=== PATIENT | male | born 1960 | race Caucasian/White ===

== ENCOUNTER 2017-05-26 12:59 | Emergency (ER) | payer BC, OTHER ==
[~2017-05-26] VITALS: Ht 182.9 cm; Wt 117.9 kg
[~2017-05-26 12:59] MED LIST: CYCL10TA6 PO; GLC/500 PO; GLIM4TAB2 PO; IBUP-1451 PO
[2017-05-26 13:10] VITALS: Ht 182.9 cm; Wt 117.9 kg
[2017-05-26] MEDS ORDERED: KETOROLAC TROMETHAMINE 30 MG/ML VIAL IV STA (13:32)
[2017-05-26] MEDS ORDERED: ONDANSETRON INJ 2 MG/ML 2 ML VIAL IV STA (13:32)
[2017-05-26] MEDS ORDERED: ACETAMINOPHEN 500 MG TAB PO STA (13:32)
--- NOTE | 2017-05-26 13:37 | EMERGENCY ROOM VISIT NOTE ---
History First contact with patient: 13:14 Chief Complaint: FLU LIKE SX Stated Complaint: FLU History of Present Illness The patient is a 56 year old male who presents to the Emergency Room with complaints of flulike symptoms that started early Satur morning. The patient has experienced a dry cough, body aches, nausea, dry heaves and diarrhea. His has similar symptoms. He did not take his temperature. The patient was traveling back from [facility]. The onset of symptoms was fairly sudden. He is also feeling slightly short of breath. The patient denies any history of pulmonary disease. He does have a history of diabetes. He did get a flu shot this year. Review of Systems 10 system review performed and negative unless noted in HPI or below Past Medical/Surgical History Diabetes Social History Smoking Status: Never Smoker Alcohol Use: occasionally Drug Use: none Marital Status: Housing Status: lives with family Occupation Status: employed Current/Historical Medications Scheduled Glimepiride (Glimepiride), 2 MG PO DAILY Metformin Hcl (Glucophage), 1,000 MG PO BID Ondasetron Odt (Zofran Odt), 4 MG SL Q6H Oseltamivir (Tamiflu), 75 MG PO BID Physical Exam Vital Signs Date Time Temp Pulse Resp B/P (MAP) Pulse Ox O2 Delivery O2 Flow Rate FiO2 05/26/17 15:04 37.1 93 18 147/79 95 Room Air 05/26/17 14:42 97 17 160/89 98 Room Air 05/26/17 13:10 37.0 104 18 158/89 98 Room Air Physical Exam VITALS: Vitals are noted on the nurse's note and reviewed by myself. Vital signs stable. GENERAL: 56-year-old male, moderately acutely ill in appearance, SKIN: The skin was without rashes, erythema, edema, or bruising. HEAD: Normocephalic atraumatic. MOUTH: Mucous membranes slightly dry Tonsils are not enlarged. Pharynx without erythema or exudate. Uvula midline. Airway patent. Tongue does not deviate. NECK: Supple without nuchal rigidity. No lymphadenopathy. Cervical spine is nontender. No JVD. HEART: Tachycardic, regular rhythm without murmurs gallops or rubs. LUNGS: Clear to auscultation bilaterally without wheezes, rales or rhonchi. No accessory muscle use. ABDOMEN: Positive bowel sounds x 4.Soft, nontender, without organomegaly. No guarding or rebound tenderness. MUSCULOSKELETAL: No muscle atrophy, erythema, or edema noted. Strength 5/5 throughout. NEURO: Patient was alert and oriented to person place and time. Normal sensation to touch. No focal neurological deficits. Medical Decision & Procedures ER Provider Diagnostic Interpretation: Chest x-ray IMPRESSION: No acute cardiopulmonary findings. Electronically signed by: Hiren Queen M.D. 05/26/2017 2:42 PM Laboratory Results 05/26/17 13:50 Red Blood Count 5.00, Mean Corpuscular Volume 89.2, Mean Corpuscular Hemoglobin 30.6, Mean Corpuscular Hemoglobin Concent 34.3, Mean Platelet Volume 9.1, Neutrophils (%) (Auto) 78.6, Lymphocytes (%) (Auto) 6.8, Monocytes (%) (Auto) 12.6, Eosinophils (%) (Auto) 1.5, Basophils (%) (Auto) 0.3, Neutrophils # (Auto ) 4.62, Lymphocytes # (Auto) 0.40, Monocytes # (Auto) 0.74, Eosinophils # (Auto ) 0.09, Basophils # (Auto) 0.02 05/26/17 13:50 Test 05/26/17 13:17 05/26/17 13:50 Influenza Type A Antigen Neg for Influ A (NEG) Influenza Type B Antigen POS for Influ B (NEG) White Blood Count 5.88 K/uL (4.8-10.8) Red Blood Count 5.00 M/uL (4.7-6.1) Hemoglobin 15.3 g/dL (14.0-18.0) Hematocrit 44.6 % (42-52) Mean Corpuscular Volume 89.2 fL (80-100) Mean Corpuscular Hemoglobin 30.6 pg (25-34) Mean Corpuscular Hemoglobin Concent 34.3 g/dl (32-36) Platelet Count 163 K/uL (130-400) Mean Platelet Volume 9.1 fL (7.4-10.4) Neutrophils (%) (Auto) 78.6 % Lymphocytes (%) (Auto) 6.8 % Monocytes (%) (Auto) 12.6 % Eosinophils (%) (Auto) 1.5 % Basophils (%) (Auto) 0.3 % Neutrophils # (Auto) 4.62 K/uL (1.4-6.5) Lymphocytes # (Auto) 0.40 K/uL (1.2-3.4) Monocytes # (Auto) 0.74 K/uL (0.11-0.59) Eosinophils # (Auto) 0.09 K/uL (0-0.5) Basophils # (Auto) 0.02 K/uL (0-0.2) RDW Standard Deviation 44.9 fL (36.4-46.3) RDW Coefficient of Variation 13.7 % (11.5-14.5) Immature Granulocyte % (Auto) 0.2 % Immature Granulocyte # (Auto) 0.01 K/uL (0.00-0.02) Anion Gap 9.0 mmol/L (3-11) Est Creatinine Clear Calc Drug Dose 91.8 ml/min Estimated GFR () 77.4 Estimated GFR (Non- 66.8 BUN/Creatinine Ratio 16.2 (10-20) Calcium Level 8.5 mg/dl (8.5-10.1) Total Bilirubin 0.4 mg/dl (0.2-1) Aspartate Amino Transf (AST/SGOT) 20 U/L (15-37) Alanine Aminotransferase (ALT/SGPT) 27 U/L (12-78) Alkaline Phosphatase 75 U/L (45-117) Total Protein 7.5 gm/dl (6.4-8.2) Albumin 3.9 gm/dl (3.4-5.0) Globulin 3.6 gm/dl (2.5-4.0) Albumin/Globulin Ratio 1.1 (0.9-2) Medications Administered Medications (Trade) Dose Ordered Sig/Perlita Route Start Time Stop Time Status Last Admin Dose Admin Sodium Chloride 1,000 ml @ 999 mls/hr Q1H1M ONCE IV 05/26/17 13:45 05/26/17 14:45 DC 05/26/17 14:06 999 MLS/HR Ondansetron HCl (Zofran Inj) 4 mg NOW STAT IV 05/26/17 13:32 05/26/17 13:35 DC 05/26/17 14:06 4 MG Acetaminophen (Tylenol Tab) 1,000 mg NOW STAT PO 05/26/17 13:32 05/26/17 13:35 DC 05/26/17 14:07 1,000 MG Ketorolac Tromethamine (Toradol Inj) 30 mg NOW STAT IV 05/26/17 13:32 05/26/17 13:35 DC 05/26/17 14:08 30 MG Oseltamivir Phosphate (Tamiflu Cap) 75 mg NOW STAT PO 05/26/17 15:24 05/26/17 15:26 DC 05/26/17 15:50 75 MG ED Course Patient was seen and examined Vital signs including blood pressure were reviewed medications list was verified with patient Labs were obtained, and a saline lock was established The patient was medicated with Toradol, Zofran and Tylenol. He was hydrated with 1 L of normal saline. Upon reevaluation, the patient was feeling better. We discussed his workup. He voiced understanding. He was given 1 dose of Tamiflu. I reviewed discharge instructions the patient. They voiced understanding and had no further questions. Medical Decision Differential diagnosis: Bronchitis, pneumonia, viral GI illness, influenza , other respiratory viral illness This patient is a 56-year-old male that presents to the emergency department with flulike symptoms. The patient has a positive for influenza B. On exam, he is slightly dehydrated. There is no leukocytosis. Chest x-ray is negative for pneumonia. He had good symptomatic relief in the emergency department. Vital signs are stable. I believe he is stable to be discharged home. He was provided a prescription for Tamiflu. He will follow-up with his primary care physician, and agrees to return with any worsening symptoms. This chart was completed in part utilizing [employer] Speech Voice Recognition software. Attempts were made to minimize the grammatical errors, random word insertions, pronoun errors and incomplete sentences. Any formal questions or concerns about the content, text or information contained within the body of this dictation should be directly addressed to the provider for clarification. Medication Reconcilliation Current Medication List: was personally reviewed by me Blood Pressure Screening Patient's blood pressure: Elevated blood pressure Blood pressure disposition: Elevated BP felt to be situational, Did not require urgent referral Impression Primary Impression: Influenza B Departure Information Dispostion Home / Self-Care Condition FAIR Prescriptions Oseltamivir (Tamiflu) 75 Mg Cap 75 MG PO BID, #9 CAP Prov: Britney Pete, JULIO CESAR 05/26/17 Ondasetron Odt (ZOFRAN ODT) 4 Mg Tab 4 MG SL Q6H for Nausea, #20 TAB Prov: Britney Pete PA-C 05/26/17 Referrals Charles Gonzales M.D. (PCP) Patient Instructions ED Influenza Ch, [facility] Additional Instructions You were evaluated in the emergency department for cough and fever. You have tested positive for influenza B. This is highly contagious for at least 48 hours. Please avoid work and other public places. Wash hands frequently Please take Tamiflu as directed Please increase fluids over the next several days. Ibuprofen 800 mg and/or Tylenol 1000 mg every 8 hours. You may also alternate these medications for more effective pain relief: Ibuprofen --4 HRS--> Tylenol --4 HRS--> ibuprofen --4 HRS--> Tylenol .... Please follow-up with her primary care physician if there is no improvement in your symptoms in the next 3-5 days Do not hesitate to return to the emergency department with any new, worsening or concerning symptoms; especially, difficulty breathing or fever of 103F or greater. It was a pleasure taking part in your care today in the emergency department. Work Instructions Return To Work: 2 days
[2017-05-26] MEDS ORDERED: AMR2 PO (13:38)
[2017-05-26] MEDS ORDERED: GLC/500 PO (13:38)
[2017-05-26] MEDS ORDERED: SODIUM CHLORIDE 0.9% 1000ML 1,000 ML IV ONE (13:45)
[2017-05-26 14:03] LABS: BASO % 0.3 %; BASO ABS # 0.02 K/uL (0-0.2); EOS % 1.5 %; EOS ABS # 0.09 K/uL (0-0.5); HEMATOCRIT 44.6 % (42-52); HEMOGLOBIN 15.3 g/dL (14.0-18.0); IG# 0.01 K/uL (0.00-0.02); LYMPH % 6.8 %; MEAN CELL VOLUME 89.2 fL (80-100); MEAN CORPUSCULAR HEMOGLOBIN 30.6 pg (25-34); MEAN CORPUSCULAR HGB CONC 34.3 g/dl (32-36); MEAN PLATELET VOLUME 9.1 fL (7.4-10.4); MONO % 12.6 %; MONO ABS # 0.74 K/uL (0.11-0.59); NEUT % 78.6 %; NEUT ABS # 4.62 K/uL (1.4-6.5); PLATELET COUNT 163 K/uL (130-400); RED CELL DISTRIBUTION WIDTH CV 13.7 % (11.5-14.5); RED CELL DISTRIBUTION WIDTH SD 44.9 fL (36.4-46.3); WHITE BLOOD COUNT 5.88 K/uL (4.8-10.8)
[2017-05-26 14:14] LABS: INFLUENZA B ANTIGEN POS for Influ B (NEG)
[2017-05-26 14:20] LABS: ALBUMIN 3.9 gm/dl (3.4-5.0); CALCIUM 8.5 mg/dl (8.5-10.1); CREATININE 1.22 mg/dl (0.60-1.40); POTASSIUM 3.6 mmol/L (3.5-5.1)
[2017-05-26 14:22] LABS: TOTAL PROTEIN 7.5 gm/dl (6.4-8.2)
--- NOTE | 2017-05-26 14:43 | DIAGNOSTIC IMAGING REPORT ---
CHEST 2 VIEWS ROUTINE CLINICAL HISTORY: Cough. Fever. COMPARISON STUDY: Chest radiograph October 07, 2015. FINDINGS: Lung volumes are normal. There is no pneumothorax or pleural effusion. There is no consolidation to suggest pneumonia. Mild cardiomegaly is noted without evidence for pulmonary edema. There may be an azygos fissure. IMPRESSION: No acute cardiopulmonary findings. Electronically signed by: Hiren Queen M.D. 05/26/2017 2:42 PM Dictated Date/Time: 05/26/2017 2:40 PM
[2017-05-26 15:04] VITALS: BP 147/79; PULSE 93; TEMP 37.1; O2SAT 95
[2017-05-26] MEDS ORDERED: OSELTAMIVIR PHOSPHATE 75 MG CAP PO STA (15:24)
[2017-05-26] MEDS ORDERED: ONDA4TAB10 SL (15:48)
[2017-05-26] MEDS ORDERED: OSEL75CA12 PO (15:48)
== END 2017-05-26 16:12 | disposition home or self-care (01) ==
LOC: C.EDB 13:00 → C.EDA 16:12
DX: J10.1 Influenza due to other identified influenza virus with other respiratory manifestations (principal); E11.9 Type 2 diabetes mellitus without complications; Z79.84 Long term (current) use of oral hypoglycemic drugs

== ENCOUNTER 2019-03-18 12:37 | Observation (INO) ==
[2019-03-18] MEDS ORDERED: ONDANSETRON INJ 2 MG/ML 2 ML VIAL IV STA (13:56)
[2019-03-18] MEDS ORDERED: HYDROmorphone INJ 1 MG/ML SYRINGE IV PRN (13:56)
[2019-03-18 14:30] LABS: Basophils # (auto) 0.03 K/uL (0-0.2); Basophils % (auto) 0.4 %; Eosinophils # (auto) 0.18 K/uL (0-0.5); Eosinophils % (auto) 2.6 %; Hematocrit (blood only) 45.5 % (42-52); Hemoglobin 15.5 g/dL (14.0-18.0); Immature Granulocytes # (auto) 0.01 K/uL (0.00-0.02); Immature Granulocytes % (auto) 0.1 %; Lymphocytes # (auto) 1.89 K/uL (1.2-3.4); Mean Corpuscular Hemoglobin 30.8 pg (25-34); Mean Corpuscular Hgb Conc 34.1 g/dL (32-36); Mean Corpuscular Volume 90.5 fL (80-100); Mean Platelet Volume 9.7 fL (7.4-10.4); Monocytes # (auto) 0.56 K/uL (0.11-0.59); Neutrophils # (auto) 4.34 K/uL (1.4-6.5); Neutrophils % (auto) 61.9 %; Platelet Count 204 K/uL (130-400); RDW Coefficient of Variation 13.6 % (11.5-14.5); RDW Standard Deviation 44.8 fL (36.4-46.3); Red Blood Count 5.03 M/uL (4.7-6.1); White Blood Count 7.01 K/uL (4.8-10.8)
[2019-03-18 14:31] LABS: iSTAT Creatinine 1.1 mg/dl (0.6-1.3); iSTAT Hemoglobin 15.6 g/dl (14.0-18.0); iSTAT Ionized Calcium 1.18 mmol/l (1.12-1.32); iSTAT Potassium 4.2 mEq/L (3.3-5.0)
--- NOTE | 2019-03-18 14:33 | Emergency Department Note ---
ED Visit Note Was seen with Dr. Urias, please see his note for details. Resident Activity Tracking Resident Involvement: Resident Care Provided Care Provided: [facility]
[2019-03-18] MEDS ORDERED: IOVERSOL 100ml IV PRN (14:36)
[2019-03-18 14:48] LABS: Albumin Level 3.8 gm/dl (3.4-5.0); BUN Creatinine Ratio 18.3 (10-20); Calcium 9.2 mg/dl (8.5-10.1); Est GFR (African American) 75.6; Est GFR (Non-African American) 65.2
--- NOTE | 2019-03-18 14:50 | CT Scan Report ---
CT abd pelvis IV con only CLINICAL HISTORY: 58 years-old Male presenting with generalized abdominal pain. TECHNIQUE: Multidetector CT of the abdomen and pelvis was performed after the administration of intra venous contrast. IV contrast: 94 mL of Optiray 320. One or more dose lowering techniques were used co nsistent with the principles of ALARA (as low as reasonably achievable), including automatic exposure control, mA or kV adjustment to individual patient size, and/or use of iterative reconstruction. COMPARISON: 10/07/2015. CT DOSE (mGy.cm): The estimated cumulative dose is 1536.89 mGy.cm. FINDINGS: Education Analyst topogram: Unremarkable. Lung bases: Normal heart size. No pericardial or pleural effusion. Minimal dependent changes likely a telectasis. Liver: Normal morphology. No liver lesion. Patent hepatic vasculature. Biliary: No intrahepatic or extrahepatic biliary ductal dilatation. Normal gallbladder. Pancreas: Mild parenchymal atrophy. Spleen: Normal. Adrenal glands: Normal. Kidneys and ureters: Normal. No hydronephrosis. Bladder: Incompletely evaluated secondary to underdistention. Pelvic organs: Prostate and seminal vesicles normal. Bowel: Normal appendix. No bowel obstruction. Peritoneal cavity: No free fluid or intraperitoneal gas. Lymph nodes: No enlarged lymph nodes in the abdomen or pelvis. Vasculature: Aorta and IVC patent and normal in caliber. Abdominal wall: Moderate fat-containing umbilical hernia with mildly infiltrated fat and associated f luid in the hernia sac. The neck measures 3.8 cm comparison to the maximal hernia sac diameter of 8.1 cm. There is a diminutive portion of the antimesenteric wall of mid sigmoid colon involved though th is is not entirely through the hernia neck to suggest a Rondon-type hernia (series 3 image 366). The retractile effect on this portion of sigmoid colon is new from prior exam. Musculoskeletal: Normal. IMPRESSION: 1. Fat-containing umbilical hernia now with mild fatty infiltration and fluid in the hernia sac conc erning for strangulation. There is also a retractile effect on the mid sigmoid colon that is new from prior exam though no thien Rondon-type hernia is present. Surgical consultation is advised. 2. No other evidence of acute intra-abdominal pathology. Electronically signed by: Charles Lovell M.D. 03/18/2019 2:49 PM
[2019-03-18 14:51] LABS: Appearance Urine Clear (Clear); Bacteria Urine Automated Negative (Negative); Bilirubin Urine Negative (Negative); Blood Urine Negative (Negative); Cast Urine Automated 0 /lpf (0-5); Color Urine Yellow; Glucose Urine UA 3+ (Negative); Ketones Urine Negative (Negative); Leukocyte Esterase Urine Negative (Negative); Nitrite Urine Negative (Negative); Protein Urine 1+ (Negative); RBC Urine Automated 0-4 /hpf (0-4); Specific Gravity Urine 1.036 (1.000-1.030); Urobilinogen Urine Negative (Negative); WBC Urine Automated 0 /hpf (0-5)
[2019-03-18 14:51] LABS: Bilirubin,Total 0.4 mg/dl (0.2-1); Globulin 3.7 gm/dl (2.5-4.0); Total Protein 7.5 gm/dl (6.4-8.2)
--- NOTE | 2019-03-18 16:03 | Surgery Consultation ---
Date of Consultation March 18, 2019 Assessment & Plan (1) Strangulated umbilical hernia: pt is a 58 year-old male who presents to Er with 6 days history abdominal pain, IMP: strangulated umbilical hernia, Plan, I recommend to do open repair umbilical hernia, possible with mesh, bowel resection, stoma, D/W benefits, risks and alternatives of the surgery, the risks - infection, bleeding, sepsis, hernia recurrence, anastomotic leak, , pt and his understood, they agree with the surgery, i answered all questions, History of Present Illness History of Present Illness CC: abdominal pain HPI: pt is a 58 year -old male who presents to ER with 6 days history juany- umbilical pain with bulging, pt has umbilical hernia in the past, pt feels the umbilical hernia is getting bigger, with pain, pt denies fever, last BM yesterday, the pain is not getting better after last 1-2 days. pt is DM, pt denies chest pain, no nausea, no vomiting. Allergies Allergy/AdvReac Type Severity Reaction Status Date / Time No Known Allergies Allergy Unverified 05/26/17 13:37 Home Medications Home Medications Medication Instructions Recorded Confirmed Type glimepiride 2 mg PO QAM 03/18/19 03/18/19 History metformin 500 mg PO BIDM 03/18/19 03/18/19 History Patient History Medical History Diabetes Family History Other No pertinent family history in first degree relatives Social History Feels Safe at Home: Yes Smoking Status: Never smoker Review of Systems Review of Systems: All systems reviewed & are unremarkable except as noted in HPI & below Ear, Nose, Mouth, Throat: as per Subjective / HPI Respiratory: as per Subjective / HPI Cardiovascular: as per Subjective / HPI Gastrointestinal: as per Subjective / HPI Genitourinary: + as per Subjective / HPI Integumentary: as per Subjective / HPI Neurologic: as per Subjective / HPI Psychiatric: as per Subjective / HPI Endocrine: as per Subjective / HPI Hematologic / Lymphatic: as per Subjective / HPI Physical Exam Constitutional: WD/WN, vitals as above well developed and well nourished ENMT: external ear and nose normal, oropharynx normal Neck: trachea midline, no thyromegaly Respiratory: normal respiratory effort, lungs clear to auscultation normal respiratory effort Cardiovascular: RRR, no murmur, no edema Rate/Rhythm: regular rate and regular rhythm Heart Sounds: normal S1 and normal S2 Gastrointestinal (Abdomen): Percussion/Palpation: abdomen soft tenderness at juany-umbilical area, with palpable mass, size is about 4x5cm , not reducible, no rebound pain, BS + Musculoskeletal: no cyanosis or clubbing, extremities motor strength 5/5 Skin: no rashes, warm and dry Neurologic: patellar DTR's 2+ bilat, sensation intact Psychiatric: A+Ox3, euthymic affect Orientation: alert and oriented x 3 Lymphatic: no cervical or axillary lymphadenopathy Results & Data Vital Signs (Past 12 Hours) Vital Signs Temp Pulse Resp BP Pulse Ox 03/18/19 15:31 80 16 94 03/18/19 15:30 79 20 136/90 95 03/18/19 15:03 81 20 03/18/19 15:02 81 20 141/97 H 03/18/19 15:01 82 20 03/18/19 15:00 92 H 23 141/97 H 97 03/18/19 14:42 93 H 18 03/18/19 14:30 156/98 H 03/18/19 14:23 84 12 95 03/18/19 14:16 83 16 169/107 H 95 03/18/19 12:54 36.6 C 94 H 20 189/97 H 98 Laboratory Results Abnormal lab results 03/18/19 03/18/19 03/18/19 Range/Units 13:57 14:15 14:16 POC Anion Gap 13.0 L (16-25) mmol/L POC BUN 24 H (7-18) mg/dl BUN 23 H (7-18) mg/dl Glucose 212 H (70-99) mg/dl POC Glucose (other) 218 H (70-99) mg/dl Ur Specific [place] 1.036 H (1.000-1.030) Urine Protein 1+ H (Negative) Urine Glucose (UA) 3+ H (Negative) U Epithel Cells (Auto) 5-10 H (0-5) /lpf Diagnostic Findings CT abd pelvis IV con only CLINICAL HISTORY: 58 years-old Male presenting with generalized abdominal pain. TECHNIQUE: Multidetector CT of the abdomen and pelvis was performed after the administration of intravenous contrast. IV contrast: 94 mL of Optiray 320. One or more dose lowering techniques were used consistent with the principles of ALARA (as low as reasonably achievable), including automatic exposure control, mA or kV adjustment to individual patient size, and/or use of iterative reconstruction. COMPARISON: 10/07/2015. CT DOSE (mGy.cm): The estimated cumulative dose is 1536.89 mGy.cm. FINDINGS: Emergency Medical Service Manager topogram: Unremarkable. Lung bases: Normal heart size. No pericardial or pleural effusion. Minimal dependent changes likely atelectasis. Liver: Normal morphology. No liver lesion. Patent hepatic vasculature. Biliary: No intrahepatic or extrahepatic biliary ductal dilatation. Normal gallbladder. Pancreas: Mild parenchymal atrophy. Spleen: Normal. Adrenal glands: Normal. Kidneys and ureters: Normal. No hydronephrosis. Bladder: Incompletely evaluated secondary to underdistention. Pelvic organs: Prostate and seminal vesicles normal. Bowel: Normal appendix. No bowel obstruction. Peritoneal cavity: No free fluid or intraperitoneal gas. Lymph nodes: No enlarged lymph nodes in the abdomen or pelvis. Vasculature: Aorta and IVC patent and normal in caliber. Abdominal wall: Moderate fat-containing umbilical hernia with mildly infiltrated fat and associated fluid in the hernia sac. The neck measures 3.8 cm comparison to the maximal hernia sac diameter of 8.1 cm. There is a diminutive portion of the antimesenteric wall of mid sigmoid colon involved though this is not entirely through the hernia neck to suggest a Rondon-type hernia (series 3 image 366). The retractile effect on this portion of sigmoid colon is new from prior exam. Musculoskeletal: Normal. IMPRESSION: 1. Fat-containing umbilical hernia now with mild fatty infiltration and fluid in the hernia sac concerning for strangulation. There is also a retractile effect on the mid sigmoid colon that is new from prior exam though no thien Rondon-type hernia is present. Surgical consultation is advised. 2. No other evidence of acute intra-abdominal pathology.
[2019-03-18] MEDS ORDERED: PIPERACILL/TAZOBAC CONSULT ACTIVE PRN (16:17)
--- NOTE | 2019-03-18 16:17 | History & Physical Bridge Note ---
Date of Service March 18, 2019 History & Physical Bridge Note I have examined the patient, reviewed the History & Physical and in the interval since the performance of the History & Physical I have noted the following changes of clinical significance: no changes noted
[2019-03-18] MEDS ORDERED: MIDAZOLAM HCL 1 MG/ML 2ML VIAL ONE (16:20)
--- NOTE | 2019-03-18 16:20 | Anesthesiology Consultation ---
Date of Service March 18, 2019 Assessment & Plan Chart Review Chart Review: Acceptable Risk for Surgery and Patient NOT seen in Pre Admission Testing Consults Requested none ASA [id number] Proposed Anesthesia Anesthesia Type: General History Surgery Operation Date: 03/18/19 07:00 Proposed Procedures p Open Umbilical Hernia Repair with Possible Mesh, Possible Bowel Resection, Possible Ostomy - Kaci Cochran MD Height/Weight Height: 6 ft Weight: 118.3 kg Allergies Allergy/AdvReac Type Severity Reaction Status Date / Time No Known Allergies Allergy Unverified 05/26/17 13:37 Medications Home Medications Medication Instructions Recorded Confirmed Last Taken glimepiride 2 mg PO QAM 03/18/19 03/18/19 03/18/19 metformin 500 mg PO BIDM 03/18/19 03/18/19 03/18/19 Active Medications Generic Name Dose Route Start Last Admin Trade Name Freq PRN Reason Stop Dose Admin Hydromorphone HCl 1 mg 03/18/19 13:56 03/18/19 14:10 Dilaudid IV 04/01/19 13:55 1 mg Q15M PRN Administration Pain Ioversol 94 ml 03/18/19 14:36 03/18/19 14:37 Optiray 320 100ml IV 03/22/19 14:35 94 ml ONCE PRN Administration Interaction Checking NPO Date Last Intake of Fluids: 03/18/19 Time Last Intake of Fluids: 07:30 Date Last Intake of Solids: 03/18/19 Time Last Intake of Solids: 07:30 Past Medical History Medical History Diabetes Exercise / Class Metabolic Activity II 4-5 Yardwork/Stairs/Walk up hill Past Family History Family History Other No pertinent family history in first degree relatives Past Anesthesia History No Hx of Anesthesia Complications and No Family Hx of Anesthesia Complications History of PONV No Hx of PONV and No Hx of Motion Sickness Social History Smoking Status: Never smoker Physical Exam Vital Signs Last Vital Signs Temp 36.6 C 03/18/19 12:54 Pulse 85 03/18/19 16:01 Resp 17 03/18/19 16:01 BP 161/90 H 03/18/19 16:00 Pulse Ox 98 03/18/19 16:00 Testing Laboratory Results 03/18/19 13:57 03/18/19 13:57 Urine Color Yellow 03/18/19 14:16 Urine Appearance Clear (Clear) 03/18/19 14:16 Urine pH 5.0 (4.5-7.5) 03/18/19 14:16 Ur Specific [place] 1.036 (1.000-1.030) H 03/18/19 14:16 Urine Protein 1+ (Negative) H 03/18/19 14:16 Urine Glucose (UA) 3+ (Negative) H 03/18/19 14:16 Urine Ketones Negative (Negative) 03/18/19 14:16 Urine Nitrite Negative (Negative) 03/18/19 14:16 Ur Leukocyte Esterase Negative (Negative) 03/18/19 14:16 Urine WBC (Auto) 0 /hpf (0-5) 03/18/19 14:16 Urine RBC (Auto) 0-4 /hpf (0-4) 03/18/19 14:16 U Hyaline Cast (Auto) 0 /lpf (0-5) 03/18/19 14:16 U Epithel Cells (Auto) 5-10 /lpf (0-5) H 03/18/19 14:16 Urine Bacteria (Auto) Negative (Negative) 03/18/19 14:16 03/18/19 14:15 POC Glucose (other) 218 H
[2019-03-18] MEDS ORDERED: LIDOCAINE HCL 1% 20 ML VIAL ONE (16:21)
[2019-03-18] MEDS ORDERED: fentaNYL citrate 100 MCG/2 ML VIAL ONE ×2 (16:21→17:28)
[2019-03-18] MEDS ORDERED: BUPIVACAINE 0.5 % 5 MG/1 ML MPF 30ML VIAL ONE (16:21)
[2019-03-18] MEDS ORDERED: BACITRACIN OINT 15 GM TUBE ONE (16:21)
[2019-03-18] MEDS ORDERED: PIPERACILLIN/TAZOBACTAM 3.375 GM/115 ML BAG IV STA (16:27)
[2019-03-18] MEDS ORDERED: ATROPINE SULFATE 0.1 MG/ML 10ML SYR IV PRN (16:55)
[2019-03-18] MEDS ORDERED: ONDANSETRON INJ 2 MG/ML 2 ML VIAL IV PRN (16:55)
[2019-03-18] MEDS ORDERED: NALOXONE HCL 0.4 MG/1 ML VIAL/CARP IV PRN (16:55)
[2019-03-18] MEDS ORDERED: PROMETHAZINE HCL 12.5 MG in SODIUM CHLORIDE 0.9% 50 ML IV PRN (16:55)
[2019-03-18] MEDS ORDERED: ePHEDrine sulfate 50 MG/ML AMP IV PRN (16:55)
[2019-03-18] MEDS ORDERED: FLUMAZENIL 0.1 MG/1 ML 10 ML VIAL IV PRN (16:55)
[2019-03-18] MEDS ORDERED: LACTATED RINGER'S 1,000 ML IV SCH (17:00)
[2019-03-18] MEDS ORDERED: ePHEDrine sulfate 50 MG/ML SYR ONE (17:28)
[2019-03-18] MEDS ORDERED: LIDOCAINE HCL 2% 2 ML VIAL/AMP(20MG/ML) INFIL ONE (17:28)
[2019-03-18] MEDS ORDERED: ROCURONIUM BROMIDE 10 MG/ML 5 ML VIAL ONE ×2 (17:28→17:30)
[2019-03-18] MEDS ORDERED: SUCCINYLCHOLINE CHLORIDE 20 MG/ML 10 ML VIAL ONE (17:28)
[2019-03-18] MEDS ORDERED: LARYING-O-JET KIT (LTA) ONE (17:28)
[2019-03-18] MEDS ORDERED: ONDANSETRON INJ 2 MG/ML 2 ML VIAL ONE (17:28)
[2019-03-18] MEDS ORDERED: PROPOFOL IV EMULSION 10 MG/ML 20 ML VIAL IV ONE (17:28)
[2019-03-18] MEDS ORDERED: NEOSTIGMINE METHYLSULFATE 5 MG/5 ML SYR ONE (17:59)
[2019-03-18] MEDS ORDERED: GLYCOPYRROLATE 0.2 MG/ML VIAL ONE (17:59)
--- NOTE | 2019-03-18 18:16 | Post Operative Brief Note ---
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
[2019-03-18] MEDS ORDERED: POLYETHYLENE (MIRALAX) 17 GM PACK PO ONE (18:24)
[2019-03-18] MEDS: HYDROmorphone INJ 1 MG/ML SYRINGE IV PRN ×3 (18:30→19:00)
[2019-03-18] MEDS: LABETALOL HCL IV 5 MG/ML 20ML IV PRN ×5 (18:40→19:07)
[2019-03-18] MEDS ORDERED: HydrALAZINE HCL 20 MG/ML VIAL IV STA (19:02)
[2019-03-18] MEDS ORDERED: HydrALAZINE HCL 20 MG/ML VIAL ONE (19:23)
--- NOTE | 2019-03-18 19:24 | Operative Report ---
DATE OF OPERATION: 03/18/2019 PREOPERATIVE DIAGNOSIS: Strangulated umbilical hernia. POSTOPERATIVE DIAGNOSIS: Incarcerated umbilical hernia. OPERATION: Open repair of incarcerated umbilical hernia with mesh. SURGEON: Kaci Cochran MD. ANESTHESIA: General. ESTIMATED BLOOD LOSS: About 10 mL. FINDINGS: Incarcerated umbilical hernia, size about 4 x 5 cm. COMPLICATIONS: None. INDICATIONS FOR THE PROCEDURE: This is a 58-year-old gentleman who presented to ED with a 6-day history of periumbilical pain with bulging and the diagnosis on CT scan was for possible strangulated umbilical hernia. I recommended to do the open repair of umbilical hernia, possibly with mesh, possible bowel resection and stoma. I did talk to the patient and patient's about the benefit, risk, alternate procedure. I indicated the risks may include but not limited to such as bleeding, infection, hernia recurrence, anastomosis leak, sepsis, even , and DVT. They understand. The patient signed informed consent and I answered all questions. DETAILS OF PROCEDURE: We brought the patient to the OR, put the patient in the supine position. The patient received SCD on bilateral legs to prevent DVT. Also, patient received 3.375 grams of Zosyn IV for prophylactic antibiotic and the patient received general anesthesia without difficulty. Also, patient received Conner catheter insertion. The abdomen was prepped and draped in routine sterile fashion. After time out, I reexamined the patient. There was some bulging mass on the umbilical area to the size of about 8 x 8 cm. Then, we made a midline incision, mobilized the umbilical hernia sac. Then, we opened the fascia, opened peritoneum and then got in the abdomen. Then, we opened the hernia neck and reduced the colon back to abdominal cavity. Then, we examined the colon; there was only 1 patch or part of the colon that turned blue. After we waited 10 minutes, the patch area turned to pink. No signs of necrosis on the colon, which is the part of the transverse colon. Then, we found the patient had a hernia, the neck size about 4 x 5 cm. At this moment, I mobilized the hernia sac and resected the hernia sac. Hemostasis was obtained. I decided to use an 8 x 8 cm mesh to repair the umbilical hernia. I used 0 Ethibond interrupted to suture the mesh to the fascial layer, then tying the suture one by one and the mesh seated nicely, no tension. Hemostasis was obtained. Then, I closed the subcutaneous layer by using 2-0 Vicryl continuous running, closed the skin by using staple. Then, we injected the local anesthesia by using 1% lidocaine mixed with 0.5% Marcaine around the incision site. Then, we put the dressing on. The patient tolerated the procedure well. All instrument, needle, sponge count were correct x2 at the end of case. The patient was transferred to recovery room in stable condition. After the procedure, we did remove the Conner catheter and after the procedure, I did talk to the patient's about the OR finding and the procedure we did, she understands. I attest to the content of the Intraoperative Record and any orders documented therein. Any exception s are noted below.
--- NOTE | 2019-03-18 19:37 | Anesthesiology Progress Note ---
Date of Service March 18, 2019 Anesthesia Post Procedure Vital Signs Vital Signs: Temp Pulse Pulse Resp BP BP Pulse Ox 03/18/19 19:25 68 19 160/92 H 96 03/18/19 19:15 36.4 C L 73 15 154/91 H 96 03/18/19 19:05 67 14 152/96 H 95 03/18/19 18:55 68 13 168/102 H 95 03/18/19 18:45 72 14 155/110 H 95 03/18/19 18:35 82 20 165/103 H 99 03/18/19 18:25 36.0 C L 92 H 16 160/101 H 96 03/18/19 16:30 36.5 C 89 21 155/92 H 96 03/18/19 16:01 85 17 03/18/19 16:00 84 20 161/90 H 98 03/18/19 15:31 80 16 94 03/18/19 15:30 79 20 136/90 95 03/18/19 15:03 81 20 03/18/19 15:02 81 20 141/97 H 03/18/19 15:01 82 20 03/18/19 15:00 92 H 23 141/97 H 97 03/18/19 14:42 93 H 18 03/18/19 14:30 156/98 H 03/18/19 14:23 84 12 95 03/18/19 14:16 83 16 169/107 H 95 03/18/19 12:54 36.6 C 94 H 20 189/97 H 98 Pain Intensity Abdomen: Pain Intensity: 4 Transfer of Care Handoff Completed per policy Notes Mental Status: alert / awake / arousable Patient Amnestic to Procedure: Yes Nausea / Vomiting: adequately controlled Pain: adequately controlled Airway Patency, RR, SpO2: stable & adequate BP & HR: stable & adequate Hydration State: stable & adequate Anesthetic Complications: no major complications apparent
[2019-03-18] MEDS ORDERED: HYDROmorphone INJ 0.5 MG/0.5 ML SYR IV PRN (20:06)
--- NOTE | 2019-03-18 20:32 | Emergency Department Note ---
Entered by Shira Blackwell acting as a scribe for Marek Urias MD History of Present Illness General Chief complaint: Abdominal Pain Stated complaint: ABD PAIN Time Seen by Provider: 03/18/19 13:40 Source: patient History of Present Illness Provider complaint: Abdominal Pain Onset (ago): day(s) 6 Location: abdomen Pain Consistency: + constant Maximum Pain Intensity: 8 Relieved By: + none Exacerbated By: + none Associated symptoms: no fever/chills The patient is a 58 year old male who presents to the Emergency Room with complaints of constant abdominal pain from a hernia that began 6 days ago. The patient states that he has had this hernia for a while and it popped out which he said was very painful. The patient notes that yesterday the hernia went back in and was also painful at that time. The patient states that he now has a new bulge above his belly button that is out. The patient states the pain is not relieved nor exacerbated by anything specific and denies experiencing any fever/chills. The patient mentioned that he has a history of diabetes. Home Medications Home Medications Medication Instructions Recorded Confirmed Type glimepiride 2 mg PO QAM 03/18/19 03/18/19 History metformin 500 mg PO BIDM 03/18/19 03/18/19 History Allergies Allergy/AdvReac Type Severity Reaction Status Date / Time No Known Allergies Allergy Unverified 05/26/17 13:37 Past Med/Surg History Medical History (Updated 03/18/19 @ 20:32 by Marek Urias MD) Diabetes Umbilical hernia Surgical History (Updated 03/18/19 @ 20:23 by Nneka Thapa RN) H/O umbilical hernia repair Family History Other No pertinent family history in first degree relatives Social History Preferred Language: 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 and A total of 10 systems reviewed and were otherwise negative Physical Exam Vital Signs Vital Signs - 24 hr 03/18/19 12:54 03/18/19 14:16 03/18/19 14:23 Temperature 36.6 C Temperature Source Oral Pulse Rate 94 H 83 84 Pulse Rate [Apical] Pulse Rate from SpO2 Sensor 84 84 Pulse Rhythm [Apical] Respiratory Rate 20 16 12 Respiratory Effort / Characteristics Non-Labored Spontaneous Respiratory Depth Normal Respiratory Pattern Regular Blood Pressure 189/97 H 169/107 H Blood Pressure [Left Arm] Blood Pressure Mean 127 116 Blood Pressure Mean [Left Arm] Blood Pressure Position [Left Arm] Pulse Oximetry 98 95 95 Oxygen Delivery Method Room Air Sepsis Recent Fever Within 48 Hours No Sepsis Action Taken by Nursing No Action Required 03/18/19 14:30 03/18/19 14:42 03/18/19 15:00 Temperature Temperature Source Pulse Rate 93 H 92 H Pulse Rate [Apical] Pulse Rate from SpO2 Sensor Pulse Rhythm [Apical] Respiratory Rate 18 23 Respiratory Effort / Characteristics Respiratory Depth Respiratory Pattern Blood Pressure 156/98 H 141/97 H Blood Pressure [Left Arm] Blood Pressure Mean 111 107 Blood Pressure Mean [Left Arm] Blood Pressure Position [Left Arm] Pulse Oximetry 97 Oxygen Delivery Method Sepsis Recent Fever Within 48 Hours Sepsis Action Taken by Nursing 03/18/19 15:01 03/18/19 15:02 03/18/19 15:03 Temperature Temperature Source Pulse Rate 82 81 81 Pulse Rate [Apical] Pulse Rate from SpO2 Sensor Pulse Rhythm [Apical] Respiratory Rate 20 20 20 Respiratory Effort / Characteristics Respiratory Depth Respiratory Pattern Blood Pressure 141/97 H Blood Pressure [Left Arm] Blood Pressure Mean 107 Blood Pressure Mean [Left Arm] Blood Pressure Position [Left Arm] Pulse Oximetry Oxygen Delivery Method Sepsis Recent Fever Within 48 Hours Sepsis Action Taken by Nursing 03/18/19 15:30 03/18/19 15:31 03/18/19 16:00 Temperature Temperature Source Pulse Rate 79 80 84 Pulse Rate [Apical] Pulse Rate from SpO2 Sensor 79 80 84 Pulse Rhythm [Apical] Respiratory Rate 20 16 20 Respiratory Effort / Characteristics Respiratory Depth Respiratory Pattern Blood Pressure 136/90 161/90 H Blood Pressure [Left Arm] Blood Pressure Mean 104 101 Blood Pressure Mean [Left Arm] Blood Pressure Position [Left Arm] Pulse Oximetry 95 94 98 Oxygen Delivery Method Sepsis Recent Fever Within 48 Hours Sepsis Action Taken by Nursing 03/18/19 16:01 03/18/19 16:30 Temperature 36.5 C Temperature Source Temporal Artery Scan Pulse Rate 85 Pulse Rate [Apical] 89 Pulse Rate from SpO2 Sensor Pulse Rhythm [Apical] Regular Respiratory Rate 17 21 Respiratory Effort / Characteristics Non-Labored Spontaneous Respiratory Depth Normal Respiratory Pattern Regular Blood Pressure Blood Pressure [Left Arm] 155/92 H Blood Pressure Mean Blood Pressure Mean [Left Arm] 113 Blood Pressure Position [Left Arm] Sitting Pulse Oximetry 96 Oxygen Delivery Method Room Air Sepsis Recent Fever Within 48 Hours Sepsis Action Taken by Nursing GENERAL: Awake, alert, well-appearing, in no acute distress HENT: Normocephalic, atraumatic. Oropharynx unremarkable. EYES: Normal conjunctiva. Sclera non-icteric. NECK: Supple. No nuchal rigidity. FROM. No JVD. RESPIRATORY: Clear to auscultation. CARDIAC: Regular rate, normal rhythm. Extremities warm and well perfused. Pulses equal. ABDOMEN: Soft, non-distended. No rebound or guarding. No masses. Tender to umbilical area. There is a hernia under the skin that I can not reduce. RECTAL: Deferred. MUSCULOSKELETAL: Chest examination reveals no tenderness. The back is symmetrical on inspection without obvious abnormality. There is no CVA tenderness to palpation. No joint edema. LOWER EXTREMITIES: Calves are equal size bilaterally and non-tender. No edema. No discoloration. NEURO: Normal sensorium. No sensory or motor deficits noted. SKIN: No rash or jaundice noted. Course Course 1340: Past medical records reviewed. The patient was evaluated in room B05. A complete history and physical exam was performed. 1538: I spoke with Dr. Caicedo- General Surgery about the patient's case and she will come to the ED to see the patient. 1601: General surgery saw the patient and he will be taken to the OR. Administered Medications Discontinued Medications Bacitracin (Bacitracin) Confirm Administered Dose 45 appln .ROUTE .STK-MED ONE Stop: 03/18/19 16:22 Last Admin: 03/18/19 18:11 Dose: 1 appln Documented by: [id number] Bupivacaine HCl (Marcaine 0.5% Mpf) Confirm Administered Dose 30 ml .ROUTE .STK- MED ONE Stop: 03/18/19 16:22 Last Admin: 03/18/19 18:12 Dose: 12 ml Documented by: [id number] Hydralazine HCl (Hydralazine Hcl) 10 mg IV NOW STA Stop: 12/11/19 19:03 Last Admin: 03/18/19 19:24 Dose: 10 mg Documented by: [id number] Hydromorphone HCl (Dilaudid) 1 mg IV Q15M PRN PRN Reason: Pain Stop: 04/01/19 13:55 Last Admin: 03/18/19 14:10 Dose: 1 mg Documented by: [id number] Hydromorphone HCl (Dilaudid) 0.25 mg IV Q5M PRN PRN Reason: PACU Use Only-Pain Stop: 03/18/19 21:55 Last Admin: 03/18/19 19:00 Dose: 0.25 mg Documented by: [id number] Admin: 03/18/19 18:35 Dose: 0.25 mg Documented by: [id number] Admin: 03/18/19 18:30 Dose: 0.25 mg Documented by: [id number] Piperacillin Sod/Tazobactam Sod (Zosyn) 3.375 gm in 115 mls @ 230 mls/hr IV NOW STA Stop: 03/18/19 16:56 Last Infusion: 03/18/19 20:09 Dose: 0 mls/hr Documented by: [id number] Admin: 03/18/19 17:06 Dose: 230 mls/hr Documented by: [id number] Ioversol (Optiray 320 100ml) 94 ml IV ONCE PRN PRN Reason: Interaction Checking Stop: 03/22/19 14:35 Last Admin: 03/18/19 14:37 Dose: 94 ml Documented by: [id number] Labetalol HCl (Normodyne) 5 mg IV Q5M PRN PRN Reason: PACU Use-SBP>160 or DBP>100 Stop: 03/18/19 21:55 Last Admin: 03/18/19 19:07 Dose: 5 mg Documented by: [id number] Cosigned by: [id number] Admin: 03/18/19 19:01 Dose: 5 mg Documented by: [id number] Cosigned by: [id number] Admin: 03/18/19 18:55 Dose: 5 mg Documented by: [id number] Cosigned by: [id number] Admin: 03/18/19 18:50 Dose: 5 mg Documented by: [id number] Cosigned by: [id number] Admin: 03/18/19 18:40 Dose: 5 mg Documented by: [id number] Cosigned by: [id number] Lidocaine HCl (Xylocaine 1% (Local)) Confirm Administered Dose 20 ml .ROUTE .STK-MED ONE Stop: 03/18/19 16:22 Last Admin: 03/18/19 18:12 Dose: 12 ml Documented by: [id number] Ondansetron HCl (Zofran) 4 mg IV NOW STA Stop: 03/18/19 13:57 Last Admin: 03/18/19 14:10 Dose: 4 mg Documented by: [id number] Medical Decision Making Differential Diagnosis Differential diagnosis: Etiologies such as biliary colic, cholecystitis, hepatitis, pancreatitis, cardiac disease, pancreatitis, gastritis, peptic ulcer disease, appendicitis, cystitis, diverticulitis, mesenteric ischemia, inflammatory bowel disease, ileus, bowel obstruction, testicular torsion, aortic pathology, shingles, as well as others were considered. Medical Records Attestation: I reviewed the patient's medical records. Home Medications Current Medication List: was personally reviewed by me Laboratory Data Attestation: I reviewed the patient's lab results. Result diagrams: 03/18/19 13:57 03/18/19 13:57 Lab Results 03/18/19 03/18/19 03/18/19 Range/Units 13:57 13:57 14:12 WBC 7.01 (4.8-10.8) K/uL RBC 5.03 (4.7-6.1) M/uL Hgb 15.5 (14.0-18.0) g/dL POC Hgb (14.0-18.0) g/dl Hct 45.5 (42-52) % POC Hct (42-52) % MCV 90.5 (80-100) fL MCH 30.8 (25-34) pg MCHC 34.1 (32-36) g/dL RDW Std Deviation 44.8 (36.4-46.3) fL RDW Coeff of Akhil 13.6 (11.5-14.5) % Plt Count 204 (130-400) K/uL MPV 9.7 (7.4-10.4) fL Immature Gran % (Auto) 0.1 % Neut % (Auto) 61.9 % Lymph % (Auto) 27.0 % [place] % (Auto) 8.0 % Eos % (Auto) 2.6 % Baso % (Auto) 0.4 % Immature Gran # (Auto) 0.01 (0.00-0.02) K/uL Neut # (Auto) 4.34 (1.4-6.5) K/uL Lymph # (Auto) 1.89 (1.2-3.4) K/uL [place] # (Auto) 0.56 (0.11-0.59) K/uL Eos # (Auto) 0.18 (0-0.5) K/uL Baso # (Auto) 0.03 (0-0.2) K/uL POC Sodium (135-144) mEq/L Sodium 137 (136-145) mmol/L POC Potassium (3.3-5.0) mEq/L Potassium 4.0 (3.5-5.1) mmol/L POC Chloride (101-112) mEq/L Chloride 104 (98-107) mmol/L Carbon Dioxide 27 (21-32) mmol/L POC Total CO2 (24-31) mEq/l Anion Gap 6.0 (3-11) POC Anion Gap (16-25) mmol/L POC BUN (7-18) mg/dl BUN 23 H (7-18) mg/dl Creatinine 1.23 (0.6-1.4) mg/dl POC Creatinine (0.6-1.3) mg/dl Est Cr Clr Drug Dosing 89.0 ml/min Est GFR ( Amer) 75.6 Est GFR (Non-Af Amer) 65.2 BUN/Creatinine Ratio 18.3 (10-20) Glucose 212 H (70-99) mg/dl POC Glucose (70-99) POC Glucose (other) (70-99) mg/dl POC Lactic Acid Parrish 1.30 (0.90-1.70) mmol/L Calcium 9.2 (8.5-10.1) mg/dl POC Ioniz Calcium Loc (1.12-1.32) mmol/l Total Bilirubin 0.4 (0.2-1) mg/dl AST 22 (15-37) U/L ALT 43 (12-78) U/L Alkaline Phosphatase 98 (45-117) U/L Total Protein 7.5 (6.4-8.2) gm/dl Albumin 3.8 (3.4-5.0) gm/dl Globulin 3.7 (2.5-4.0) gm/dl Albumin/Globulin Ratio 1.0 (0.9-2) Lipase 117 (73-393) U/L Urine Color Urine Appearance (Clear) Urine pH (4.5-7.5) Ur Specific Rawlings (1.000-1.030) Urine Protein (Negative) Urine Glucose (UA) (Negative) Urine Ketones (Negative) Urine Blood (Negative) Urine Nitrite (Negative) Urine Bilirubin (Negative) Urine Urobilinogen (Negative) Ur Leukocyte Esterase (Negative) Urine WBC (Auto) (0-5) /hpf Urine RBC (Auto) (0-4) /hpf U Hyaline Cast (Auto) (0-5) /lpf U Epithel Cells (Auto) (0-5) /lpf Urine Bacteria (Auto) (Negative) 03/18/19 03/18/19 03/18/19 Range/Units 14:15 14:16 16:36 WBC (4.8-10.8) K/uL RBC (4.7-6.1) M/uL Hgb (14.0-18.0) g/dL POC Hgb 15.6 (14.0-18.0) g/dl Hct (42-52) % POC Hct 46 (42-52) % MCV (80-100) fL MCH (25-34) pg MCHC (32-36) g/dL RDW Std Deviation (36.4-46.3) fL RDW Coeff of Akhil (11.5-14.5) % Plt Count (130-400) K/uL MPV (7.4-10.4) fL Immature Gran % (Auto) % Neut % (Auto) % Lymph % (Auto) % [place] % (Auto) % Eos % (Auto) % Baso % (Auto) % Immature Gran # (Auto) (0.00-0.02) K/uL Neut # (Auto) (1.4-6.5) K/uL Lymph # (Auto) (1.2-3.4) K/uL [place] # (Auto) (0.11-0.59) K/uL Eos # (Auto) (0-0.5) K/uL Baso # (Auto) (0-0.2) K/uL POC Sodium 138 (135-144) mEq/L Sodium (136-145) mmol/L POC Potassium 4.2 (3.3-5.0) mEq/L Potassium (3.5-5.1) mmol/L POC Chloride 103 (101-112) mEq/L Chloride (98-107) mmol/L Carbon Dioxide (21-32) mmol/L POC Total CO2 27 (24-31) mEq/l Anion Gap (3-11) POC Anion Gap 13.0 L (16-25) mmol/L POC BUN 24 H (7-18) mg/dl BUN (7-18) mg/dl Creatinine (0.6-1.4) mg/dl POC Creatinine 1.1 (0.6-1.3) mg/dl Est Cr Clr Drug Dosing ml/min Est GFR ( Amer) Est GFR (Non-Af Amer) BUN/Creatinine Ratio (10-20) Glucose (70-99) mg/dl POC Glucose 161 H (70-99) POC Glucose (other) 218 H (70-99) mg/dl POC Lactic Acid Parrish (0.90-1.70) mmol/L Calcium (8.5-10.1) mg/dl POC Ioniz Calcium Loc 1.18 (1.12-1.32) mmol/l Total Bilirubin (0.2-1) mg/dl AST (15-37) U/L ALT (12-78) U/L Alkaline Phosphatase (45-117) U/L Total Protein (6.4-8.2) gm/dl Albumin (3.4-5.0) gm/dl Globulin (2.5-4.0) gm/dl Albumin/Globulin Ratio (0.9-2) Lipase (73-393) U/L Urine Color Yellow Urine Appearance Clear (Clear) Urine pH 5.0 (4.5-7.5) Ur Specific [place] 1.036 H (1.000-1.030) Urine Protein 1+ H (Negative) Urine Glucose (UA) 3+ H (Negative) Urine Ketones Negative (Negative) Urine Blood Negative (Negative) Urine Nitrite Negative (Negative) Urine Bilirubin Negative (Negative) Urine Urobilinogen Negative (Negative) Ur Leukocyte Esterase Negative (Negative) Urine WBC (Auto) 0 (0-5) /hpf Urine RBC (Auto) 0-4 (0-4) /hpf U Hyaline Cast (Auto) 0 (0-5) /lpf U Epithel Cells (Auto) 5-10 H (0-5) /lpf Urine Bacteria (Auto) Negative (Negative) Imaging Data Radiologist's Impression: Radiology results as stated below per my review and the radiologist's interpretation: CT abd pelvis IV con only CLINICAL HISTORY: 58 years-old Male presenting with generalized abdominal pain. TECHNIQUE: Multidetector CT of the abdomen and pelvis was performed after the administration of intravenous contrast. IV contrast: 94 mL of Optiray 320. One or more dose lowering techniques were used consistent with the principles of A MALLY (as low as reasonably achievable), including automatic exposure control, mA or kV adjustment to individual patient size, and/or use of iterative reconstruction. COMPARISON: 10/07/2015. CT DOSE (mGy.cm): The estimated cumulative dose is 1536.89 mGy.cm. 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 Lung bases: Normal heart size. No pericardial or pleural effusion. Minimal dependent changes likely atelectasis. Liver: Normal morphology. No liver lesion. Patent hepatic vasculature. Biliary: No intrahepatic or extrahepatic biliary ductal dilatation. Normal gallbladder. Pancreas: Mild parenchymal atrophy. Spleen: Normal. Adrenal glands: Normal. Kidneys and ureters: Normal. No hydronephrosis. Bladder: Incompletely evaluated secondary to underdistention. Pelvic organs: Prostate and seminal vesicles normal. Bowel: Normal appendix. No bowel obstruction. Peritoneal cavity: No free fluid or intraperitoneal gas. Lymph nodes: No enlarged lymph nodes in the abdomen or pelvis. Vasculature: Aorta and IVC patent and normal in caliber. Abdominal wall: Moderate fat-containing umbilical hernia with mildly infiltrated fat and associated fluid in the hernia sac. The neck measures 3.8 cm comparison to the maximal hernia sac diameter of 8.1 cm. There is a diminutive portion of the antimesenteric wall of mid sigmoid colon involved though this is not entirely through the hernia neck to suggest a Rondon-type hernia (series 3 image 366). The retractile effect on this portion of sigmoid colon is new from prior exam. Musculoskeletal: Normal. IMPRESSION: 1. Fat-containing umbilical hernia now with mild fatty infiltration and fluid in the hernia sac concerning for strangulation. There is also a retractile effect on the mid sigmoid colon that is new from prior exam though no thien Rich ter-type hernia is present. Surgical consultation is advised. 2. No other evidence of acute intra-abdominal pathology. Electronically signed by: Charles Lvoell M.D. 03/18/2019 2:49 PM Blood Pressure Blood Pressure Findings: Elevated blood pressure Blood Pressure Disposition: further management by hospitalist ARIC Lane This is a 58-year-old male who presents emergency department complaining of severe abdominal pain. Patient has a umbilical hernia on physical examination. Patient is exquisitely tender therefore he was sent for CAT scan of the abdomen pelvis. This was concerning for possible Rondon hernia so I did discuss the case with the surgeon on-call who was kind enough to come and see the patient. In the meantime the patient was given Dilaudid here in the emergency department. Repeat examination revealed improvement the patient's symptoms. The patient was taken to the operating room. Impression & Plan Strangulated umbilical hernia, Abdominal pain Discharge Plan Visit Data *Final* Discharge Date/Time: 03/18/19 16:18 Chief Complaint: Abdominal Pain Stated Complaint: ABD PAIN ED Provider: Marek Urias ED Midlevel Provider: Nathan Palafox Discharge Problem: Strangulated umbilical hernia, Abdominal pain Patient Disposition: Still a Patient Discharge Instructions Interventions: ED Discharge Assessment Last Done: 03/18/19 16:18 Discharge Problem: Abdominal pain Qualifiers: Abdominal location: unspecified location Qualified Code(s): R10.9 - Unspecified abdominal pain The scribe's documentation has been prepared under my direction and personally reviewed by me in its entirety. I confirm that the note above accurately reflects all work, treatment, procedures, and medical decision making performed by me.
[2019-03-18] MEDS ORDERED: CARBOHYDRATES FOR HYPOGLYCEMIA PO PRN (21:00)
[2019-03-18] MEDS ORDERED: GLUCOSE 10 TABS/TUBE PO PRN (21:00)
[2019-03-18] MEDS ORDERED: GLUCOSE 40% GEL 15 GM TUBE PO PRN (21:00)
[2019-03-18] MEDS ORDERED: DEXTROSE 50% 50 ML SYRINGE IV PRN (21:00)
[2019-03-18] MEDS ORDERED: GLUCAGON FOR INJ 1 MG VIAL IM PRN (21:00)
[2019-03-18] MEDS ORDERED: INSULIN ASPART 100 UNITS/ML 3 ML PEN SC SCH (21:00)
[2019-03-18] MEDS ORDERED: POLYETHYLENE (MIRALAX) 17 GM PACK ONE (21:22)
[2019-03-18] MEDS: LACTATED RINGER'S 1,000 ML IV SCH (21:22)
[2019-03-18] MEDS: INSULIN ASPART 100 UNITS/ML 3 ML PEN SC SCH (22:01)
--- NOTE | 2019-03-18 23:08 | Consultation Report ---
DATE OF CONSULTATION: 03/18/2019 CHIEF COMPLAINT: Strangulated umbilical hernia, status post surgery. HISTORY OF PRESENT ILLNESS: This is a 58-year-old male with past medical history significant for type 2 diabetes, umbilical hernia, presented with abdominal pain for 6 day duration, found to have strangulated hernia status post surgery and open surgical repair. He tolerated the procedure okay. Currently resting comfortably. Has some mild discomfort at surgical site. Denies any chest pain or shortness of breath. No nausea. Not feeling hot or cold. No headache, no blurred visions. Not passing gas yet, resting comfortably. Denies any other complaints. ALLERGIES: No known drug allergies. PAST MEDICAL HISTORY: As mentioned above. PAST SURGICAL HISTORY: Colonoscopy, surgical excision of the anal lesions. MEDICATIONS: On glimepiride 2 mg p.o. daily in the morning, metformin 500 mg p.o. b.i.d. FAMILY HISTORY: Significant for mother of lung cancer. Father had TIA at age 85. SOCIAL HISTORY: . No smoking. Alcohol occasional. No drug use. REVIEW OF SYMPTOMS: As per HPI. Rest of review of systems negative. PHYSICAL EXAMINATION: GENERAL: The patient is obese, not in acute distress. VITAL SIGNS: Temperature 36.5, pulse 86, respiratory 18, blood pressure 140/85, oxygen 96% on 2 liters. HEENT: Extraocular muscles are intact. NECK: No neck masses, no carotid bruits. CARDIOVASCULAR: S1, S2 heard, regular rate and rhythm, no murmur, no gallop. RESPIRATORY SYSTEM: Normal AP diameter. No thyromegaly. No wheezing, no crackles. ABDOMEN: Status post open surgery for strangulated umbilical hernia repair. Surgical band seen. EXTREMITIES: No edema, no erythema. Moves extremities. CLINICAL ABSTRACTOR: Nonfocal. LABORATORY DATA: WBC 7, hemoglobin 15.5, hematocrit 45.5, platelets 204. Sodium 138, potassium 4.2, chloride 104, CO2 27, BUN 23, creatinine 1.2, serum glucose 212, calcium 9.2, total bilirubin 0.4, AST 22, ALT 43, alkaline phosphatase 98, lipase 117. Urinalysis +3 glucose. IMAGING: CT of the abdomen and pelvis done earlier in the morning, strangulated umbilical hernia now with mild fatty infiltration of fluid in the hernia sac concern for strangulation. EKG: Normal sinus rhythm, rate of 84. No previous EKG available. ASSESSMENT AND PLAN: This is a 58-year-old male who presents with strangulated umbilical hernia, status post surgery. 1. Strangulated umbilical hernia, status post surgery: Further management as per general surgery. Diet as per general surgery. 2. Diabetes. Will hold his metformin and glimepiride, will place him on insulin sliding scale. Follow his blood sugars, follow HbA1c level in a.m. 3. Deep venous thrombosis prophylaxis as per surgery. FRAND
[2019-03-18 23:29] VITALS: O2SAT 94
[2019-03-19] MEDS: OXYCODONE/ACETAMINOPHEN 5mg/325mg TAB PO PRN ×2 (03:03→10:59)
[2019-03-19 05:35] LABS: Basophils # (auto) 0.03 K/uL (0-0.2); Basophils % (auto) 0.3 %; Eosinophils # (auto) 0.14 K/uL (0-0.5); Eosinophils % (auto) 1.5 %; Hematocrit (blood only) 42.4 % (42-52); Hemoglobin 14.3 g/dL (14.0-18.0); Immature Granulocytes # (auto) 0.01 K/uL (0.00-0.02); Immature Granulocytes % (auto) 0.1 %; Lymphocytes # (auto) 1.15 K/uL (1.2-3.4); Lymphocytes % (auto) 12.5 %; Mean Corpuscular Hemoglobin 30.8 pg (25-34); Mean Corpuscular Hgb Conc 33.7 g/dL (32-36); Mean Corpuscular Volume 91.4 fL (80-100); Mean Platelet Volume 9.6 fL (7.4-10.4); Monocytes # (auto) 0.94 K/uL (0.11-0.59); Monocytes % (auto) 10.2 %; Neutrophils # (auto) 6.96 K/uL (1.4-6.5); Neutrophils % (auto) 75.4 %; Platelet Count 177 K/uL (130-400); RDW Coefficient of Variation 13.8 % (11.5-14.5); RDW Standard Deviation 45.8 fL (36.4-46.3); Red Blood Count 4.64 M/uL (4.7-6.1); White Blood Count 9.23 K/uL (4.8-10.8)
[2019-03-19 05:56] LABS: Albumin Level 3.3 gm/dl (3.4-5.0); BUN Creatinine Ratio 14.2 (10-20); Calcium 8.4 mg/dl (8.5-10.1); Creatinine Clr Calc Pharmacy 91.9 ml/min; Est GFR (African American) 78.7; Est GFR (Non-African American) 67.9
[2019-03-19 05:59] LABS: Bilirubin,Total 0.7 mg/dl (0.2-1); Globulin 3.2 gm/dl (2.5-4.0); Total Protein 6.5 gm/dl (6.4-8.2)
[2019-03-19 07:03] LABS: Estimated Average Glucose 269 mg/dl
[2019-03-19 07:26] VITALS: TEMP 97.5
[2019-03-19] MEDS: LACTATED RINGER'S 1,000 ML IV SCH (07:50)
[2019-03-19] MEDS ORDERED: ACETAMINOPHEN 325 MG TAB PO PRN (07:57)
[2019-03-19] MEDS: INSULIN ASPART 100 UNITS/ML 3 ML PEN SC SCH ×2 (08:58→12:56)
[2019-03-19] MEDS ORDERED: GLIMEPIRIDE 2 MG TAB PO SCH (09:00)
--- NOTE | 2019-03-19 09:03 | Hospitalist Progress Note ---
Date of Service March 19, 2019 Assessment & Plan (1) Strangulated umbilical hernia: This is a 58-year-old male who presents with strangulated umbilical hernia and is POD#1 s/p surgical repair. -Feeling well today with abdominal band in place. Further management and diet as per general surgery -Tolerating diet well, passing flatus, no BM -H/H stable (2) Uncontrolled type II diabetes mellitus: A1c of 11 -Takes glimepiride and metformin at home -BSG 190-210s since yesterday. Continue SSI and added 5 Lantus BID -Diabetic education consult placed Dispo: Per primary service Patient seen in collaboration with Dr. Chris. Please see addendum. Supervising Physician Co-Signing Physician Notes attending addendum : 58 yo M s/p strangulated umbillical hernia repair recovering well post op diet advanced tolerating well cont management as per surgery TYPE 2 DM ON ORAL MEDS : poorly controlled hb A1c 11 ems educator consulted pt admits of not following diabetic diet will need close follow up with family physician for diabetic management please refer to further documentation by Lucia Urban PA-C for discussion of other chronic issues Liliane Chris MD Subjective Seen and examined in [id number]. Patient is feeling well today, with decreased surgical site pain. Tolerated breakfast without nausea, vomiting or abdominal pain. Denies fever, chills, lightheadedness, visual changes, chest pain, SOB or dysuria. Urinating since removal of childs without issue. Passing flatus, no BM yet. Review of Systems Review of Systems: At least ten systems reviewed and negative except as noted in the HPI. Physical Exam Physical Exam: General Appearance: WD/WN, vitals as above, NAD, sitting up in bed, pleasant, conversing easily Head: normocephalic, atraumatic Eyes: normal inspection, PERRL, conjunctivae normal, anicteric sclerae ENT: external ear and nose normal, oropharynx normal Neck: trachea midline, no thyromegaly normal visual inspection Respiratory: lungs clear to auscultation, no wheeze, rales, rhonchi. Normal insp/exp effort, no accessory muscle use Cardiovascular: regular rate, rhythm, no murmur, normal peripheral pulses Chest: normal inspection of chest Abdomen/GI: normal bowel sounds, soft, surgical site TTP, abdominal band in place, no hepatosplenomegaly Extremities/Musculoskelatal: no cyanosis or clubbing, extremities motor strength 5/5 Neurologic: PERRL, CN's II-XI intact bilaterally and moves all extremities Psychiatric: A+Ox3, euthymic affect Skin: no rashes, normal color, warm/dry Results & Data Vital Signs (Past 12 Hours) Vital Signs Temp Pulse Resp BP BP Pulse Ox 03/19/19 07:25 36.4 C L 88 20 149/84 H 94 03/19/19 04:00 36.6 C 87 17 134/82 94 03/18/19 23:28 36.5 C 95 H 17 143/81 H 94 03/18/19 22:11 36.5 C 95 H 18 120/71 92 Laboratory Results Short CBC 03/18/19 03/18/19 03/18/19 Range/Units 13:57 16:36 18:34 WBC 7.01 (4.8-10.8) K/uL Hgb 15.5 (14.0-18.0) g/dL Hct 45.5 (42-52) % Plt Count 204 (130-400) K/uL POC Glucose 161 H 147 H (70-99) 03/18/19 03/19/19 03/19/19 Range/Units 21:01 05:23 08:36 WBC 9.23 (4.8-10.8) K/uL Hgb 14.3 (14.0-18.0) g/dL Hct 42.4 (42-52) % Plt Count 177 (130-400) K/uL POC Glucose 231 H 227 H (70-99) [facility] 03/18/19 03/19/19 13:57 05:23 Sodium 137 137 Potassium 4.0 4.0 Chloride 104 103 Carbon Dioxide 27 32 BUN 23 H 17 Creatinine 1.23 1.19 Glucose 212 H 199 H Calcium 9.2 8.4 L Liver Function 03/18/19 03/19/19 Range/Units 13:57 05:23 Total Bilirubin 0.4 0.7 (0.2-1) mg/dl AST 22 34 (15-37) U/L ALT 43 39 (12-78) U/L Alkaline Phosphatase 98 71 (45-117) U/L Albumin 3.8 3.3 L (3.4-5.0) gm/dl Urine 03/18/19 Range/Units 14:16 Urine Color Yellow Urine Appearance Clear (Clear) Urine pH 5.0 (4.5-7.5) Ur Specific [place] 1.036 H (1.000-1.030) Urine Protein 1+ H (Negative) Urine Glucose (UA) 3+ H (Negative)
[2019-03-19] MEDS ORDERED: bisacodyL 5 MG TABEC PO ONE ×2 (10:37→12:50)
--- NOTE | 2019-03-19 10:37 | Surgery Progress Note ---
Date of Service F/U S/P open repair umbilical hernia with mesh, pt is doing fine, good control incision pain, no nausea, no vomiting, he tolerated diet, passed gas. no BM yet, March 19, 2019 Assessment & Plan (1) Strangulated umbilical hernia: pt is a 58 year-old male who presents to Er with 6 days history abdominal pain, IMP: strangulated umbilical hernia, Plan, I recommend to do open repair umbilical hernia, possible with mesh, bowel resection, stoma, D/W benefits, risks and alternatives of the surgery, the risks - infection, bleeding, sepsis, hernia recurrence, anastomotic leak, , pt and his understood, they agree with the surgery, i answered all questions, 03/19/2019 10:36AM doing fine pt wants to go home today, the post-op care instruction was given, F/U 2 weeks, Physical Exam Constitutional: WD/WN, vitals as above well developed and well nourished ENMT: external ear and nose normal, oropharynx normal Neck: trachea midline, no thyromegaly Respiratory: normal respiratory effort, lungs clear to auscultation normal respiratory effort Cardiovascular: RRR, no murmur, no edema Rate/Rhythm: regular rate and regular rhythm Heart Sounds: normal S1 and normal S2 Gastrointestinal (Abdomen): Percussion/Palpation: abdomen soft no distend, mild incision pain, the dressing is intact, no redness, BS+ Musculoskeletal: no cyanosis or clubbing, extremities motor strength 5/5 Skin: no rashes, warm and dry Neurologic: patellar DTR's 2+ bilat, sensation intact Psychiatric: A+Ox3, euthymic affect Orientation: alert and oriented x 3 Lymphatic: no cervical or axillary lymphadenopathy Results & Data Vital Signs (Past 12 Hours) Vital Signs Temp Pulse Resp BP BP Pulse Ox 03/19/19 07:25 36.4 C L 88 20 149/84 H 94 03/19/19 04:00 36.6 C 87 17 134/82 94 03/18/19 23:28 36.5 C 95 H 17 143/81 H 94
[2019-03-19] MEDS ORDERED: INSULIN GLARGINE SOLOSTAR 100 UNITS/ML 3 ML PEN SC SCH (11:00)
--- NOTE | 2019-03-19 11:51 | Discharge Summary ---
ADMITTING DIAGNOSIS: Incarcerated strangulated umbilical hernia. DISCHARGE DIAGNOSIS: Incarcerated umbilical hernia. OPERATION: Open repair of umbilical hernia with mesh. SURGEON: Kaci Cochran MD DETAILS OF DISCHARGE SUMMARY: This is a 58-year-old old gentleman who presented to the hospital ER with abdominal pain and patient had a CT scan diagnosis possible strangulated umbilical hernia and we took the patient to the OR on 03/18/2019. In the OR, we found the patient had the incarcerated umbilical hernia and reduced the hernia content which was the colon back to abdominal cavity. Then we chose the mesh to repair the umbilical hernia and patient tolerated the procedure well. After procedure, the patient transferred to recovery room and later on transferred to regular floor. The patient is doing fine and he walked around and had good control of pain. He tolerated a diet. No nausea, no vomiting. PHYSICAL EXAMINATION: VITAL SIGNS: Temperature is 36.4, the heart rate 88, respiratory rate 20, blood pressure 149/84, O2 saturation 94% on room air. GENERAL: The patient is alert, awake, oriented x3. HEENT: Within normal limitation. NEUROLOGIC: Intact. NECK: No JVD. CHEST: Bilateral lung sounds clear. HEART: Normal S1, S2. No murmur. ABDOMEN: Soft, nondistended. Dressing intact, incision intact. No redness. Bowel sounds positive. EXTREMITIES: No edema. The patient passed some gas. The patient wanted to go home today afternoon. I did give the patient postop care instruction. The patient understands and I will follow up in 2 weeks.
[2019-03-19 12:36] VITALS: BP 134/82; PULSE 79
[2019-03-20] MEDS ORDERED: METFORMIN HCL 500 MG TAB PO SCH (17:00)
== END 2019-03-19 13:32 | disposition home or self-care (01) ==
LOC: ED 12:37 → ASU 16:18 → 3N 16:18

== ENCOUNTER 2024-07-12 02:09 | Observation (INO) ==
--- OUTSIDE RECORDS SUMMARY | 2024-07-12 02:16 | External Medical Summary ---
Author Name Unknown Address Unknown Organization [id number]:[facility] [place] [address] [place] [address] Laboratory Report Ordering Provider Test Date Status MARTA FARLEY 07/10/2024 11:46:27 Final Normal: <30 mg/g creatinine< br/>High: 30-300 mg/g creatinine
Very High: >300 mg/g creatinine
Nephrotic: >2200 mg/g creatinine Observation Date Value Abnormality Reference (Units ) Status Albumin, Urine 07/10/2024 11:46:27 32.00 (mg/dL) Final Creatinine, Urine 07/10/2024 11:46:27 81 (mg/dL) Final Albumin/Creatinine [Mass Ratio] in Urine 07/10/2024 11:46:27 395 Above high normal <30 (mg/g Creat) Final Performing Location [facility] [place] [address] [place] [address]
--- OUTSIDE RECORDS SUMMARY | 2024-07-12 02:16 | External Medical Summary | Summary of Care ---
Author Name Unknown Organization [facility] Address [address] [place] [address] Phone [phone] Care Team Providers Care Salon Leader Name Role Phone Charles Gonzales MD Primary Care Provider + Reason for Visit * Reason Comments Outpatient Testing Encounter Details Date Type Department Care Team (Late st Contact Info) Description 07/10/2024 11:50 AM EDT Laboratory Laboratory, [facility] [address] [place] [address] [place]ane, Specimen Drop Off [facility] [address] [place] [address] Diabetic peripheral neuropathy (HCC); Urinary frequency Allergies No known active allergiesdocumented as of this encounter (statuses as of 07/10/2024) Medications ONETOUCH LANCETS MISC Use to test BG up to twice daily 200 Each 3 03/23/20 19 Active OneTouch Verio In Vitro Strip (Glucose Blood) Use to test BG up to twice daily 200 Strip 3 11/11/19 22 Active Jardiance 25 MG Oral Tablet (Empagliflozin)I ndications:Type 2 diabetes mellitus with hemoglobin A1c goal of less than 7.0% (HCC) TAKE 1 TABLET BY MOUTH EVERY DAY IN THE MORNING 90 Tablet 2 09/12/19 24 Active Dexcom G7 Sensor Use as directed every 10 days. Use 1 sensor every 10 days E11.9 3 Each 11 10/31/19 24 Active Atorvastatin Calcium 40 MG Oral Tablet (Lipitor)Indicat ions:Dyslipidemi a TAKE 1 TABLET BY MOUTH EVERY DAY IN THE MORNING 90 Tablet 3 02/15/20 24 Active NovoLOG FlexPen 100 UNIT/ML Subcutaneous Solution Pen-injector (insulin aspart) Inject 5 Units under the skin in the morning and 5 Units at noon and 5 Units in the evening. Inject with meals. 15 mL 11 04/29/19 25 Active Pen Mcclave 33G X 4 MM Use as directed. Use to inject insulin four times daily E11.9 400 Each 5 04/29/19 25 Active Ozempic (2 MG/DOSE) 8 MG/3ML Subcutaneous Solution Pen-injector (Semaglutide (2 MG/DOSE))Indicat ions:Type 2 diabetes mellitus with hemoglobin A1c goal of less than 7.0% (HCC) INJECT 2 MG SUBCUTANEOUSLY ONE TIME PER WEEK 3 mL 1 06/25/19 25 Active Insulin Glargine 100 UNIT/ML Subcutaneous Solution (Lantus) Inject 26 Units under the skin at bedtime. 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 type 2 diabetes mellitus (HCC) 1.25 mg IZ PRN 07/01/2024 07/01/2025 A ctive ROPivacaine (Naropin) inj 1.5 mgIndications: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 associated with type 2 diabetes mellitus (HCC) 1.5 mg IJ PRN 07/01/2024 07/01/2025 A ctive documented as of this encounter (statuses as of 07/10/2024) Active Problems Problem Noted Date Diagnosed Date Diabetic peripheral neuropathy 04/23/2023 Moderate nonproliferative di abetic retinopathy of both eyes with macular edema associated with type 2 diabetes mellitus 04/22/2023 Uncontrolled type 2 diabetes mellitus with hyper glycemia 09/08/2022 Type 2 diabetes mellitus wit h hemoglobin A1c goal of less than 7.0% 04/20/2015 Overview (08/02/2015): ICD-10 update of inactive term documented as of this encounter (statuses as of 07/10/2024) Resolved Problems Problem Noted Date Diagnosed Date Resolved Date Thoracic back pain 10/31/2015 8 Well adult exam 04/26/2014 07/10/2024 Overview (08/11/2023): 07/30 Stress echo WNL. Skin tag 11/19/2011 09/16/2017 Umbilical hernia 11/19/2011 09/11/2021 Overview (09/11/2021): Historical- umbilical hernia repair done 03/2019 Impaired fasting glucose documented as of this encounter (statuses as of 07/10/2024) Immunizations Name Administration Dates Next Due COVID-19 mRNA, LNP-s, No Pre serve, 2-Dose Series (ZolkC) 05/15/2020,04/05/2020 Seasonal Influenza Vac., MDV, IM, 0.5 mL (Fluzon e) 02/06/2014 Seasonal Influenza, PF, 6 M & above, IM , (FluLaval or Fluzone) 02/20/2018 Seasonal Influenza, Quadrivalent, No Preserve, I M 02/22/2016 TDAP, Age 7 and older, IM (Adacel) 02/06/2010 documented as of this encounter Social History Tobacco Use Types Packs/Day Years Used Date Smoking Tobacco: Never Smokeless Tobacco: Never Alcohol Use Standard Drinks/Week Comments Yes 0 (1 standard drink = 0.6 oz pur e alcohol) couple every other week. 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 Not on file Not on file No t on file documented as of this encounter Plan of Treatment Upcoming Encounters Date Type Department Care Team (Late st Contact Info) Description 07/14/2024 9:00 AM EDT Office Visit Ophthalmology, [facility] [address] [place] [phone] Quinton Will, DO [address] [place] [id number] 07/16/2024 8:45 AM EDT Imaging Radiology [facility] [address] [place] [phone] 07/20/2024 1:00 PM EDT Office Visit Orthopaedics [facility] [address] [place] [phone] Patricia Shin MD [address] [place] [phone] 09/23/2024 10:00 AM EDT Office Visit Pharmacy, [facility] [address] [place] [id number] [facility] [place] [id number] Pending Results Name Type Priority Associated Diagnoses Date /Time ALBUMIN / CREATININE RATIO, URINE Lab Routine Diabetic peripheral neuropathy (HCC) 07/10/2024 11:46 AM EDT Scheduled Procedures Name Priority Associated Diagnoses Date/Ti me COLONOSCOPY FLEXIBLE PROXIMAL DIAGNOSTIC Recall Colon cancer screening Health Maintenance Due Date Last Done Comments HIV Screening 1977 Hepatitis C Screening 1980 Pneumococcal Vaccine: 50+ Years (1 of 2 - PCV) 1981 Zoster Vaccines (1 of 2) 1981 Cologuard 11/19/2007 Fecal Occult Blood Test 11/19/2007 Sigmoidoscopy 11/19/2007 DTap/Tdap Vaccines (2 - Td or Tdap) 02/07/2020 02/06/2010 Diabetic Foot Exam 08/24/2022 08/24/2021, 0 09/16/2017, 10/14/2015 Depression Screening 05/02/2023 05/02/2022 COVID-19 Vaccine (3 - Pfizer risk series) 02/09/2024 01/12/2024, 05/15/2020, 04/05/2020 Albumin/Creatinine Ratio 04/22/2024 024, 07/31/2022, 05/02/2022, Additional history exists GFR 04/22/2024 04/22/2023, 06/0 06/2022, 07/31/2022, Additional history exists HbA1c 07/14/2024 01/14/2024, 10/06, 04/22/2023, Additional history exists Diabetic Eye Exam 06/25/2025 06/25/2024, , 08/19/2023, Additional history exists Colonoscopy 12/25/2025 12/26/2015, 12/07, 11/07/2015, Additional history exists Colorectal Cancer Screening 12/25/2025 Lipid Panel 04/22/2028 04/22/2023, 08/06, 05/14/2016, Additional history exists Influenza Vaccine (FLU shot) Completed 09/2023, 02/20/2018, 02/22/2016, Additional history exists HPV (Gardasil) Vaccine Aged Out No lo nger eligible based on patient's age to complete this topic Hepatitis B Vaccine Aged Out No longe r eligible based on patient's age to complete this topic MENINGOCOCCAL (MENACTRA/MENVEO) Aged Out No longer eligible based on patient's age to complete this topic Meningitis B Vaccine (Bexsero/Trumemba) Aged Out No longer eligible based on patient's age to complete this topic documented as of this encounter Medical Devices Not on filedocumented as of this encounter Procedures Procedure Name Priority Date/Time Associated Diagnosis Comments URINALYSIS, REFLEX TO CULTURE Routine 07/10/2024 11:46 AM EDT Urinary frequency URINALYSIS, REFLEX TO CULTURE (CUP ONLY) Routine 07/10/2024 11:46 AM EDT Urinary frequency URINALYSIS, REFLEX TO CULTURE (NOT FOR NEUTROPENIC PATIENTS) Routine 07/10/2024 11:46 AM EDT Urinary frequency documented in this encounter Results * (ABNORMAL) URINALYSIS, REFLEX TO CULTURE (07/10/2024 11:46 AM EDT) Color, Urine Yellow Light Yellow, Yellow, Dark Yellow 07/10/2024 1:28 PM EDT [facility] Clarity, Urine Clear Clear 07/10/2024 1:28 PM EDT [facility] Glucose, Urine >=1000(A) Negative mg/dL 07/10/2024 1:28 PM EDT [facility] Bilirubin, Urine Negative Negative 07/10/2024 1:28 PM EDT [facility] Ketone, Urine Trace(A) Negative mg/dL 07/10/2024 1:28 PM EDT [facility] Specific [place], Urine 1.015 1.003 - 1.030 07/10/2024 1:28 PM EDT [facility] Blood, Urine Trace(A) Negative 07/10/2024 1:28 PM EDT [facility] pH, Urine 5.5 5.0 - 7.5 Units 07/10/2024 1:28 PM EDT [facility] Protein, Urine 100(A) Negative mg/dL 07/10/2024 1:28 PM EDT [facility] Urobilinogen, Urine 0.2 0.2, 1.0 mg/dL 07/10/2024 1:28 PM EDT [facility] Nitrite, Urine Negative Negative 07/10/2024 1:28 PM EDT [facility] Esterase, Urine Negative Negative 07/10/2024 1:28 PM EDT [facility] RBC, Urine 3-5(A) 0 - 2 /HPF 07/10/2024 1:28 PM EDT [facility] WBC, Urine 0-2 0 - 2 /HPF 07/10/2024 1:28 PM EDT [facility] Bacteria, Urine 0-25 0 - 25 /HPF 07/10/2024 1:28 PM EDT [facility] Culture, Urine 07/10/2024 1:28 PM EDT [facility] Comment:Culture not indicate d by urinalysis results Urine Urine specimen obtained by clean catch procedure / Unknown Non-blood Collection / Unknown 07/10/2024 11:46 AM EDT 07/10/2024 11:46 AM EDT Cristy OSULLIVAN LAB URINE ORDERABLES F inal Result [facility] [address] [place] [id number] * URINALYSIS, REFLEX TO CULTURE (CUP ONLY) (07/10/2024 11:46 AM EDT) Urinalysis, Reflex to Culture Specimen Specimen collected and received 07/10/2024 1:01 PM EDT [facility] Urine Urine specimen obtained by clean catch procedure / Unknown Non-blood Collection / Unknown 07/10/2024 11:46 AM EDT 07/10/2024 11:46 AM EDT Cristy OSULLIVAN LAB URINE ORDERABLES F inal Result Performing Organization Address City/[facility]/ZIP Co de Phone Number [facility] [place] [phone] documented in this encounter Visit Diagnoses Diagnosis Diabetic peripheral neuropathy (HCC) Type II or unspecified type diabetes mellitus with neurological manifestations, not stated as uncontrolled Urinary frequency documented in this encounter Care Teams Salon Leader Relationship Specialty Start Date End Date Charles Gonzales MD [address] [place] [id number] PCP - General Family Medicine 08/24/21 documented as of this encounter
--- OUTSIDE RECORDS SUMMARY | 2024-07-12 02:16 | External Medical Summary ---
Author Name Unknown Address Unknown Organization [id number]:[facility] - [address] [place] [address] Laboratory Report Ordering Provider Test Date Status PHAN DE LA ROSA 07/10/2024 11:46:27 Final Observation Date Value Abnormality Reference (Units ) Status Color of Urine by Auto 07/10/2024 11:46:27 Yellow Light Yellow, Yellow, Dark Yellow Final Clarity, Urine 07/10/2024 11:46:27 Clear Clear Final Glucose [Mass/volume] in Urine by Automated test strip 07/10/2024 11:46:27 >=1000 Abnormal Negative (mg/dL) Final Bilirubin.total [Presence] in Urine by Automated test strip 07/10/2024 11:46:27 Negative Negative Final Ketones [Mass/volume] in Urine by Automated test strip 07/10/2024 11:46:27 Trace Abnormal Negative (mg/dL) Final Specific gravity, Urine 07/10/2024 11:46:27 1.015 1.003-1.030 Final Hemoglobin [Presence] in Urine by Automated test strip 07/10/2024 11:46:27 Trace Abnormal Negative Final pH, Urine 07/10/2024 11:46:27 5.5 5.0-7.5 (Units) Final Protein [Mass/volume] in Urine by Automated test strip 07/10/2024 11:46:27 100 Abnormal Negative (mg/dL) Final Urobilinogen [Mass/volume] in Urine by Automated test strip 07/10/2024 11:46:27 0.2 0.2, 1.0 (mg/dL) Final Nitrite [Presence] in Urine by Automated test strip 07/10/2024 11:46:27 Negative Negative Final Leukocyte esterase [Presence] in Urine by Automated test strip 07/10/2024 11:46:27 Negative Negative Final RBC, Urine 07/10/2024 11:46:27 3-5 Abnormal 0-2 (/HPF) Final WBC, Urine 07/10/2024 11:46:27 0-2 0-2 (/HPF) Final Bacteria [#/area] in Urine sediment by Microscopy high power field 07/10/2024 11:46:27 0-25 0-25 (/HPF) Final CULTURE, URINE - [facility] 07/10/2024 11:46:27 Final Culture not indicated by uri nalysis results\[id number]\ Performing Location [facility] [place] [facility] [address] - [address] [facility] [address]
--- OUTSIDE RECORDS SUMMARY | 2024-07-12 02:16 | External Medical Summary | Summary of Care ---
Author Name Unknown Organization [facility] Address [address] [address] , [place] Care Team Providers Care Novelty Balloon Assembler And Packer Name Role Phone Charles Gonzales MD Primary Care Provider + Reason for Visit * Reason Onset Date Comments Blood Sugar Problem 02/17/2024 Encounter Details Date Type Department Care Team (Late st Contact Info) Description 02/17/2024 Telephone Pharmacy, [facility] [place] [address] [facility] [place] [address] [place] [facility] [place] [address] [facility] [place] [address] Blood Sugar Problem (/) Allergies No known active allergiesdocumented as of this encounter (statuses as of 05/19/2024) Medications ONETOUCH LANCETS MISC Use to test BG up to twice daily 200 Each 3 03/23/2019 Active OneTouch Verio In Vitro Strip (Glucose Blood) Use to test BG up to twice daily 200 Strip 3 11/10/2021 Active Jardiance 25 MG Oral Tablet (Empagliflozin) Indications:Typ e 2 diabetes mellitus with hemoglobin A1c goal of less than 7.0% (HCC) TAKE 1 TABLET BY MOUTH EVERY DAY IN THE MORNING 90 Tablet 2 09/12/2023 Active Dexcom G7 Sensor Use as directed every 10 days. 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 documented as of this encounter (statuses as of 05/19/2024) Resolved Problems Problem Noted Date Diagnosed Date Resolved Date Thoracic back pain 10/31/2015 8 Skin tag 11/19/2011 09/16/2017 Umbilical hernia 11/19/2011 09/11/2021 Overview (09/11/2021): Historical- umbilical hernia repair done 03/2019 Impaired fasting glucose documented as of this encounter (statuses as of 05/19/2024) Immunizations Name Administration Dates Next Due COVID-19 mRNA, LNP-s, No Pre serve, 2-Dose Series ([employer]) 05/15/2020,04/05/2020 Seasonal Influenza Vac., MDV, IM, 0.5 [...] Industry Job Start Date Job End Date [employer] [facility] [employer]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 Nadia Patel CPhT, [place] Well Surveying Engineer II [facility] ([facility]) [address] [address] [place] [phone] ext [phone] documented in this encounter Plan of Treatment Upcoming Encounters Date Type Department Care Team (Late st Contact Info) Description 07/01/2024 10:00 AM EDT Office Visit Pharmacy, [facility] [address] [facility] [place] [address] [facility] [address] [facility] [place] [address] Scheduled Procedures Name Priority Associated Diagnoses Date/Ti me COLONOSCOPY FLEXIBLE PROXIMAL DIAGNOSTIC Recall Colon cancer screening Health Maintenance Due Date Last Done Comments HIV Screening 1977 Hepatitis C Screening 1980 Pneumococcal Vaccine: 50+ Years (1 of 2 - PCV) 1981 Cologuard 11/19/2007 Fecal Occult Blood Test 11/19/2007 Sigmoidoscopy 11/19/2007 Zoster Vaccines (1 of 2) 2012 DTap/Tdap Vaccines (2 - Td or Tdap) 02/07/2020 02/06/2010 Diabetic Foot Exam 08/24/2022 08/24/2021, 0 09/16/2017, 10/14/2015 Depression Screening 05/02/2023 05/02/2022 COVID-19 Vaccine ( season) 2024 01/12/2024, 05/15/2020, 04/05/2020 Albumin/Creatinine Ratio 04/22/2024 024, 07/31/2022, 05/02/2022, Additional history exists B-12 04/22/2024 04/22/2023, 06/0 06/2022, 08/23/2021 GFR 04/22/2024 04/22/2023, 06/0 06/2022, 07/31/2022, Additional history exists HbA1c 07/14/2024 01/14/2024, 10/06, 04/22/2023, Additional history exists Diabetic Eye Exam 12/01/2024 12/02/2023, , 07/02/2022, Additional history exists Colonoscopy 12/25/2025 12/26/2015, 12/07, [...] Not on filedocumented as of this encounter Care Teams Novelty Balloon Assembler And Packer Relationship Specialty Start Date End Date Charles Gonzales MD [address] [place] [address] PCP - General Family Medicine 08/24/21 documented as of this encounter
--- OUTSIDE RECORDS SUMMARY | 2024-07-12 02:16 | External Medical Summary | Summary of Care ---
Author Name Unknown Organization [facility] Address [address] [place] [address] Phone [phone] Care Team Providers Care Long Haul Truck Driver Name Role Phone Charles Gonzales MD Primary Care Provider + Reason for Visit * Reason Comments Follow Up Encounter Details Date Type Department Care Team (Late st Contact Info) Description 07/01/2024 11:30 AM EDT Office Visit Ophthalmology, [facility] [address] [facility] [place] [address] Quinton Will, [address] [facility] [place] [address] 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 associated with type 2 diabetes mellitus (HCC)* Allergies No known active allergiesdocumented as of this encounter (statuses as of 07/01/2024) Medications ONETOUCH LANCETS MISC Use to test [...] 15 mL 11 04/29/19 25 Active Pen [place] 33G X 4 MM Use as directed. Use to inject insulin four times daily E11.9 400 Each 04/29/19 25 Active Ozempic (2 MG/DOSE) 8 [...] as of this encounter (statuses as of 07/01/2024) Active Problems Problem Noted Date Diagnosed Date [...] as of this encounter (statuses as of 07/01/2024) Resolved Problems Problem Noted Date Diagnosed Date Resolved Date Thoracic back pain 10/31/2015 8 Skin tag 11/19/2011 09/16/2017 Umbilical hernia 11/19/2011 09/11/2021 Overview (09/11/2021): Historical- umbilical hernia repair done 03/2019 Impaired fasting glucose documented as of this encounter (statuses as of 07/01/2024) Immunizations Name Administration Dates Next Due COVID-19 mRNA, LNP-s, No Pre serve, 2-Dose Series ([employer]) 05/15/2020,04/05/2020 Seasonal Influenza Vac., MDV, IM, 0.5 [...] Industry Job Start Date Job End Date [employer]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 is a 63 year old year old male who presents for Severe NPDR OU. Last Office Visit: 02/06/2024 (in office), Patient currently states no change in vision. Are you diabetic? Yes. Do you check your blood sugars daily? YES. Fasting BS this mornin mg/dl. Last Hemoglobin A1C: Lab Results Component Value Date/Time HGBA1C 17.1 (H) 10/18/2023 04:51 PM HGBA1C 10.8 (H) 04/22/2023 12:24 PM HGBA1C 13.9 (H) 07/31/2022 12:31 PM HGBA1C 7.7 (H) 05/14/2016 12:14 PM HGBA1C 6.5 (H) 10/31/2015 07:05 AM HGBA1C 14.7 (H) 04/19/2015 08:[address]? yes OCT image(s) of both eyes acquired and filed/scanned into chart. Base Eye Exam Visual Acuity (Snellen - Linear) Right Left Dist cc 20/70 20/25 Dist ph cc NI Correction: Glasses Tonometry (Tonopen, 11:41 AM) Right Left Pressure 19 21 Pupils Pupils Dark Light Shape React APD Right PERRL 3.5 3 Round Brisk None Left PERRL 3.5 3 Round Brisk None Visual Tee (Counting fingers) Right Left Full Full Extraocular Movement Right Left Full Full Neuro/Psych Oriented x3: Yes Mood/Affect: Normal Dilation Both eyes: 0.5% Proparacaine @ 11:41 AM Dilation #2 Both eyes: 1.0% Mydriacyl, 2.5% Phenylephrine @ 11:43 AM EXTERNAL: The ocular adnexae are unremarkable. SLE: Lids/Lashes: wnl OU Conjunctiva/Sclera: quiet OU Cornea: clear OU Anterior Chamber: deep and quiet OU Iris: normal OU; no NVI OU Lens: 1-2+NSC OU Dilated fundus exam OD: vitreous: clear optic nerve: 0.15, no edema/pallor/NVD macula: +tool and die maker apprentice/cws, CSME vessels: wnl periphery: + COLOR MAKER DYER; no RT/RD Dilated fundus exam OS: vitreous: clear optic nerve: 0.2, no edema/pallor/NVD macula: +tool and die maker apprentice/cws, CSME vessels: wnl periphery: + COLOR MAKER DYER; no RT/RD OCT Interpretation: OD: CIDME, no pvd--worse 161um OS: CIDME, no pvd--worse 55um OCTA Interpretation: 07/31/2022 OD: marked capillary dropout OS: marked capillary dropout Fluorescein Interpretation: 02/06/2024 OD: capillary nonperfusion OS: capillary nonperfusion, small NVE ST macula A/P: 1. Severe Nonproliferative diabetic retinopathy OU -DM2 since approx 2011 -pt was released by [facility] due to noncompliance -h/o Avastin OU at [facility] --last 2020 -BS were poorly controlled at A1C 17 but currently improved -ma-h/o mild NVE OScular ischemia OD>OS -07/01/2024: CIDME OU -recommend HgbA1C <7, BP and lipid control. 2. Cataracts OU -not visually significant -recommend HgbA1C <7, BP and lipid control. f/u for Avastin OS only 1-3 weeks Quinton Will DO CC: Dr. Smith CC: Charles Gonzales MD TIMEOUT PROCEDURE: correct patient identity-YES correct procedure and consent-YES verified side and site-YES correct patient position-YES all necessary equipment/prior studies present-YES reviewed special requirements of this patient-YES PROCEDURE: Intravitreal injection of Avastin 1.25mg OD INFORMED CONSENT: Patient is aware that this is an off-label use of Avastin and that Avastin is not FDA approved for this use. Risks, benefits and alternatives have been discussed with the patient. Risks include, but are not limited to: retinal tears, detachments, hemorrhage, glaucoma, infection, cataracts, need formore procedures and the potential risk of arterial thromboembolic events following use of intravitreal VEGF inhibitors defined as nonfatal stroke, nonfatal myocardial infarction or vascular . Patient is aware of these risks and consents to the procedure. DESCRIPTION OF PROCEDURE: The procedure site was confirmed. Topical proparacaine was applied to the surface of the eye after which subconjunctival anesthetic was administered. The area was prepped in the standard aseptic manner with 5% Betadine solution. An eyelid speculum was placed and 0.05 ml of a 25mg/ml solution of Avastin was injected 3.75 mm posterior to the limbus into the midvitreous cavity with a 30 gauge short needle. The Betadine was flushed from the eye, the eye speculum was removed and optic nerve perfusion was insured. The patient tolerated the procedure without difficulty and was given followup instructions and instructed to use ophthalmic ointment 3x/day as needed. Quinton Will DO, performed the procedure in its entirety. documented in this encounter Nursing Notes * Dana Hitchcock TECH - 07/01/2024 12:21 PM EDT Anthony Jett Sr. to receive third Avastin 2.75 mg Injection of the Right eye. Correct eye confirmed with patient and marked by Quinton Will DO Avastin 2.75 mg lot # [id number] Exp. Date: 08/01/2024 * Quinton Israel TECH - 07/01/2024 11:30 AM EDT Anthony Garcia Maliha Sr. is a 63 year old year old male who presents for Severe NPDR OU. Last Office Visit: 02/06/2024 (in office), Patient currently states no change in vision. Are you diabetic? Yes. Do you check your blood sugars daily? YES. Fasting BS this mornin mg/dl. Last Hemoglobin A1C: Lab Results Component Value Date/Time HGBA1C 17.1 (H) 10/18/2023 04:51 PM HGBA1C 10.8 (H) 04/22/2023 12:24 PM HGBA1C 13.9 (H) 07/31/2022 12:31 PM HGBA1C 7.7 (H) 05/14/2016 12:14 PM HGBA1C 6.5 (H) 10/31/2015 07:05 AM HGBA1C 14.7 (H) 04/19/2015 08:[address]? yes OCT image(s) of both eyes acquired and filed/scanned into chart. documented in this encounter Plan of Treatment Upcoming Encounters Date Type Department Care Team (Late st Contact Info) Description 07/10/2024 11:00 AM EDT Office Visit Family Practice [facility] [address] [facility] [place] [address] Cristy Willis CRNP [address] [place] [address] 09/23/2024 10:00 AM EDT [facility], [facility] [place] [address] [facility] [address] [place] [address] Scheduled Orders Name Type Priority Associated Diagnoses Orde r Schedule RETINA SCAN DIAGNOSTIC IMAGE, POSTERIOR Procedures Routine 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 associated with type 2 diabetes mellitus (HCC) Ordered: 07/01/2024 Scheduled Procedures Name Priority Associated Diagnoses Date/Ti [...] Not on filedocumented as of this encounter Visit Diagnoses Diagnosis 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 associated with type 2 diabetes mellitus (HCC)- Primary documented in this encounter Administered Medications Active Administered Medications - up to 3 most recent administrations Medication Order MAR Action Action Date Dose Rate Site bevaCIZumab (Avastin) inj 1.25 mg 1.25 mg, Intravitreal, PRN Other, Starting on Sat07/01/24 at 1235, Until Courtney 07/01/25 at 1234, For 365 daysIndications: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 associated with type 2 diabetes mellitus (HCC) Given 07/01/2024 1:25 PM EDT 2.75 mg Eye Right ROPivacaine (Naropin) inj 1.5 mg 1.5 mg, Injection, PRN Other, Starting on Sat07/01/24 at 1235, Until Courtney 07/01/25 at 1234, For 365 daysIndications: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 associated with type 2 diabetes mellitus (HCC) Given 07/01/2024 1:24 PM EDT 1.5 mg Eye Right documented in this encounter Care Teams Long Haul Truck Driver Relationship Specialty Start Date End Date Charles Gonzales MD [address] [place] [address] PCP - General Family Medicine 08/24/21 documented as of this encounter
--- OUTSIDE RECORDS SUMMARY | 2024-07-12 02:16 | External Medical Summary | Summary of Care ---
Author Name Unknown Organization [facility] Address [address] [place] [address] Phone [phone] Care Team Providers Care Lab Support Tech Name Role Phone Charles Gonzales MD Primary Care Provider + Encounter Details Date Type Department Care Team (Late st Contact Info) Description 02/17/2024 Orders Only PATIENT PORTAL DO NOT DELETE THIS DEPT USED BY [place] [id number] Allergies No known active allergiesdocumented as of this encounter (statuses as of 02/17/2024) Medications ONETOUCH LANCETS MISC Use to test BG up to twice daily 200 Each 3 9 Active OneTouch Verio In Vitro Strip (Glucose Blood) Use to test BG up to twice daily 200 Strip 3 2 Active Jardiance 25 MG Oral Tablet (Empagliflozin)In dications:Type 2 diabetes mellitus with hemoglobin A1c goal of less than 7.0% (HCC) TAKE 1 TABLET BY MOUTH EVERY DAY IN THE MORNING 90 Tablet 2 4 Active Ozempic (2 MG/DOSE) 8 MG/3ML Subcutaneous Solution Pen-injector (Semaglutide (2 MG/DOSE))Indicati ons:Type 2 diabetes mellitus with hemoglobin A1c goal of less than 7.0% (HCC) Inject 2 mg under the skin once a week. 3 mL 5 4 Active Insulin Glargine 100 UNIT/ML Subcutaneous Solution (Lantus) Inject 16 Units under the skin at bedtime. 10 mL 12 4 Active Pen [place] 33G X 4 MM Use as directed. Use to inject insulin once daily E11.9 100 Each 5 4 Active Dexcom G7 Sensor Use as directed every 10 days. Use 1 sensor every 10 days E11.9 3 Each 11 4 Active Atorvastatin Calcium 40 MG Oral Tablet (Lipitor)Indicati ons:Dyslipidemia TAKE 1 TABLET BY MOUTH EVERY DAY IN THE MORNING 90 Tablet 3 4 Active documented as of this encounter (statuses as of 02/17/2024) Active Problems Problem Noted Date Diagnosed Date [...] as of this encounter (statuses as of 02/17/2024) Resolved Problems Problem Noted Date Diagnosed Date Resolved Date Thoracic back pain 10/31/2015 8 Skin tag 11/19/2011 09/16/2017 Umbilical hernia 11/19/2011 09/11/2021 Overview (09/11/2021): Historical- umbilical hernia repair done 03/2019 Impaired fasting glucose documented as of this encounter (statuses as of 02/17/2024) Immunizations Name Administration Dates Next Due COVID-19 mRNA, LNP-s, No Pre serve, 2-Dose Series ([employer]) 05/15/2020,04/05/2020 Seasonal Influenza Vac., MDV, IM, 0.5 [...] Industry Job Start Date Job End Date [facility]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 Not on file Not on file No t on file documented as of this encounter Plan of Treatment Upcoming Encounters Date Type Department Care Team (Late st Contact Info) Description 04/09/2024 8:00 AM EST Office Visit Ophthalmology, [facility] [address] [place] [address] CessQuinton moser, DO [address] [place] [address] Scheduled Procedures Name Priority Associated Diagnoses Date/Ti me COLONOSCOPY FLEXIBLE PROXIMAL DIAGNOSTIC Recall Colon cancer screening Health Maintenance Due Date Last Done Comments Pneumococcal Vaccine: Pediatrics (0 to 5 Years) and At-Risk Patients (6 to 64 Years) (1 of 2 - PCV) 1968 HIV Screening 1977 Hepatitis C Screening 1980 Cologuard 11/19/2007 Fecal Occult Blood Test 11/19/2007 Sigmoidoscopy 11/19/2007 Zoster Vaccines (1 of 2) 2012 DTap/Tdap Vaccines (2 - Td or Tdap) 02/07/2020 02/06/2010 Diabetic Foot Exam 08/24/2022 08/24/2021, 0 09/16/2017, 10/14/2015 Depression Screening 05/02/2023 05/02/2022 COVID-19 Vaccine ( - season) 2024 01/12/2024, 05/15/2020, 04/05/2020 Albumin/Creatinine Ratio [...] filedocumented as of this encounter Care Teams Lab Support Tech Relationship Specialty Start Date End Date Charles Gonzales MD [address] [place] [address] PCP - General Family Medicine 08/24/21 documented as of this encounter
--- OUTSIDE RECORDS SUMMARY | 2024-07-12 02:16 | External Medical Summary | Summary of Care ---
Author Name Unknown Organization [facility] Address [address] [place] [address] Phone [phone] Care Team Providers Care Fraternity House Cook Name Role Phone Charles Gonzales MD Primary Care Provider + Reason for Visit * Reason Onset Date Comments Follow Up 07/02/2024 Encounter Details Date Type Department Care Team (Late st Contact Info) Description 07/02/2024 Telephone Ophthalmology, [facility] [address] [place] [phone] Quinton Will DO [address] [place] [address] Follow Up Allergies No known active allergiesdocumented as of this encounter (statuses as of 07/02/2024) Medications ONETOUCH LANCETS MISC Use to test [...] 15 mL 11 04/29/19 25 Active Pen [place] 33G X 4 MM Use as directed. [...] skin at bedtime. 10 mL 12 07/02/19 Active Hospital, Clinic, or Other Facility Administered [...] as of this encounter (statuses as of 07/02/2024) Active Problems Problem Noted Date Diagnosed Date [...] as of this encounter (statuses as of 07/02/2024) Resolved Problems Problem Noted Date Diagnosed Date Resolved Date Thoracic back pain 10/31/2015 8 Skin tag 11/19/2011 09/16/2017 Umbilical hernia 11/19/2011 09/11/2021 Overview (09/11/2021): Historical- umbilical hernia repair done 03/2019 Impaired fasting glucose documented as of this encounter (statuses as of 07/02/2024) Immunizations Name Administration Dates Next Due COVID-19 mRNA, LNP-s, No Pre serve, 2-Dose Series ([employer]) 05/15/2020,04/05/2020 Seasonal Influenza Vac., MDV, IM, 0.5 [...] Industry Job Start Date Job End Date [employer]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 No answer- LVM with appointment 07/07/24 @ 9:15am. documented in this encounter Plan of Treatment Upcoming Encounters Date Type Department Care Team (Late st Contact Info) Description 07/07/2024 9:15 AM EDT Office Visit Ophthalmology, [facility] [address] [place] [phone] Quinton Will DO [address] [place] [address] [place] Nurse Jeffery Iyer [address] [place] [address] [place] Front End Alignment Specialist [place] [address] [place] [address] 07/10/2024 11:00 AM EDT Office Visit Family Practice [facility] [address] [place] [address] Cristy Willis CRNP [address] [place] [address] 09/23/2024 10:00 AM EDT Office Visit Pharmacy, [facility] [address] [place] [address] [facility] [place] [address] [place] [address] Scheduled Procedures Name Priority Associated Diagnoses Date/Ti [...] filedocumented as of this encounter Care Teams Fraternity House Cook Relationship Specialty Start Date End Date Charles Gonzales MD [address] [place] [address] PCP - General Family Medicine 08/24/21 documented as of this encounter
--- OUTSIDE RECORDS SUMMARY | 2024-07-12 02:16 | External Medical Summary | Summary of Care ---
Author Name Unknown Organization [facility] Address [address] [place] [address] Phone [phone] Care Team Providers Care Retail And Restaurant Name Role Phone Charles Gonzales MD Primary Care Provider + Encounter Details Date Type Department Care Team (Late st Contact Info) Description 04/30/2024 Population Health External Data Unspecified Department Allergies No known active allergiesdocumented as of this encounter (statuses as of 04/30/2024) Medications ONETOUCH LANCETS MISC Use to test [...] MORNING 90 Tablet 3 02/15/20 24 Active Insulin Glargine 100 UNIT/ML Subcutaneous Solution (Lantus) Inject 22 Units under the skin at bedtime. 10 mL 12 03/18/20 24 Active Ozempic (2 MG/DOSE) 8 MG/3ML Subcutaneous Solution Pen-injector (Semaglutide (2 MG/DOSE))Indicat ions:Type 2 diabetes mellitus with hemoglobin A1c goal of less than 7.0% (HCC) INJECT 2 MG SUBCUTANEOUSLY ONE TIME PER WEEK 3 mL 2 04/03/20 Active NovoLOG FlexPen 100 UNIT/ML Subcutaneous Solution Pen-injector (insulin aspart) Inject 5 Units under the skin in the morning and 5 Units at noon and 5 Units in the evening. Inject with meals. 15 mL 11 04/29/19 Active Pen [place] 33G X 4 MM Use as directed. Use to inject insulin four times daily E11.9 400 Each 5 04/29/19 Active documented as of this encounter (statuses as of 04/30/2024) Active Problems Problem Noted Date Diagnosed Date [...] as of this encounter (statuses as of 04/30/2024) Resolved Problems Problem Noted Date Diagnosed Date Resolved Date Thoracic back pain 10/31/2015 8 Skin tag 11/19/2011 09/16/2017 Umbilical hernia 11/19/2011 09/11/2021 Overview (09/11/2021): Historical- umbilical hernia repair done 03/2019 Impaired fasting glucose documented as of this encounter (statuses as of 04/30/2024) Immunizations Name Administration Dates Next Due COVID-19 mRNA, LNP-s, No Pre serve, 2-Dose Series ([employer]) 05/15/2020,04/05/2020 Seasonal Influenza Vac., MDV, IM, 0.5 [...] Industry Job Start Date Job End Date [facility] [employer] [facility] [employer]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 Not on file Not on file No t on file documented as of this encounter Plan of Treatment Upcoming Encounters Date Type Department Care Team (Late st Contact Info) Description 07/01/2024 10:00 AM EDT Office Visit Pharmacy, [facility] [address] [facility] [place] [address] [facility] [place] [address] Scheduled Procedures Name Priority Associated Diagnoses Date/Ti [...] filedocumented as of this encounter Care Teams Retail And Restaurant Relationship Specialty Start Date End Date Charles Gonzales MD [address] [place] [address] PCP - General Family Medicine 08/24/21 documented as of this encounter
--- OUTSIDE RECORDS SUMMARY | 2024-07-12 02:16 | External Medical Summary | Summary of Care ---
Author Name Unknown Organization [facility] Address [address] [place] [address] Phone [phone] Care Team Providers Care Court Assistant Name Role Phone Charles Gonzales MD Primary Care Provider + Reason for Visit * Reason Comments Dosage Adjustment In Person (Anticoag Cl inic) Diabetes Follow-Up Encounter Details Date Type Department Care Team (Late st Contact Info) Description 04/29/2024 8:50 AM EST Office Visit Pharmacy, [facility] [address] [place] [address] [facility] 132 [place] [address] Type 2 diabetes mellitus with hemoglobin A1c goal of less than 7.0% ([facility])* Allergies No known active allergiesdocumented as of this encounter (statuses as of 04/29/2024) Medications ONETOUCH LANCETS MISC Use to test [...] TIME PER WEEK 3 mL 2 04/03/20 24 Active NovoLOG FlexPen 100 UNIT/ML Subcutaneous Solution Pen-injector (insulin aspart) Inject 5 Units under the skin in the morning and 5 Units at noon and 5 Units in the evening. Inject with meals. 15 mL 11 04/29/19 Active Pen [place] 33G X 4 MM Use as directed. Use to inject insulin four times daily E11.9 400 Each 5 04/29/19 Active Pen [place] 33G X 4 MM Use as directed. Use to inject insulin once daily E11.9 100 Each 5 10/31/19 24 025 Discontin ued(Refil l) documented as of this encounter (statuses as of 04/29/2024) Active Problems Problem Noted Date Diagnosed Date [...] as of this encounter (statuses as of 04/29/2024) Resolved Problems Problem Noted Date Diagnosed Date Resolved Date Thoracic back pain 10/31/2015 8 Skin tag 11/19/2011 09/16/2017 Umbilical hernia 11/19/2011 09/11/2021 Overview (09/11/2021): Historical- umbilical hernia repair done 03/2019 Impaired fasting glucose documented as of this encounter (statuses as of 04/29/2024) Immunizations Name Administration Dates Next Due COVID-19 mRNA, LNP-s, No Pre serve, 2-Dose Series ([employer]) 05/15/2020,04/05/2020 Seasonal Influenza Vac., MDV, IM, 0.5 [...] Industry Job Start Date Job End Date [employer]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 Medication Therapy Disease [facility] - Diabetes Management Progress Note Anthony Jose Jett Sr., identified by name and date of , is a 63 year old male being seen for diabetes management/education. Patient presents for return diabetic visit. DIABETES: Current diabetic medications: Ozempic 2 mg weekly Jardiance 25 mg daily Lantus 23 units daily Dexcom G7 Atorvastatin 40 mg daily Medication Injection Site: Abdomen Lifestyle: Diet: unchanged Glucose Review/SMBG: Readings obtained from patient device Hypoglycemia: Does your blood sugar go below 70 mg/dL? No Hyperglycemia symptoms present: none Recent Labs Units 10/18/23 1651 04/22/23 1224 07/31/22 1231 HEMOGLOBIN A1C - [facility] % 17.1* 10.8* 13.9* Recent Labs Units 04/22/23 1224 09/08/22 1000 07/31/22 1231 ESTIMATED GLOMERULAR FILTRATION RATE - [facility] mL/min 61 61 64 CREATININE - [facility] mg/dL 1.3* 1.3* 1.3* HYPERTENSION: Patient on ACEi/ARB: no, not indicated BP Readings from Last 3 Encounters: 10/18/23 124/76 04/22/23 118/74 09/08/22 132/76 Blood pressure at goal: yes HYPERLIPIDEMIA: Recent Labs Units 04/22/23 1224 LDL CHOLESTEROL (CALCULATED) - [facility] mg/dL 24 Does patient have clinical ASCVD? No, is patient LDL less than 70mg/dL? Yes HEALTH MAINTENANCE REVIEW: Health Maintenance Due Topic Date Due HIV Screening Never done Hepatitis C Screening Never done Pneumococcal Vaccine: 50+ Years (1 of 2 - PCV) Never done Zoster Vaccines (1 of 2) Never done DTap/Tdap Vaccines (2 - Td or Tdap) 02/07/2020 Diabetic Foot Exam 08/24/2022 Depression Screening 05/02/2023 COVID-19 Vaccine ( season) 2024 Albumin/Creatinine Ratio 04/22/2024 GFR 04/22/2024 B-12 04/22/2024 ASSESSMENT & PLAN: ICD-10-CM 1. Type 2 diabetes mellitus with hemoglobin A1c goal of less than 7.0% (HCC) E11.9 BG Readings - Blood sugars uncontrolled. BG values are still elevated especially after meals, better control than previously but still not at goal. Medications - Reviewed current regimen, patient is adherent to regimen. Will add meal time insulin,discussed with patient administration, dosing and side effects. Patient is agreeable. Diet, Exercise, Lifestyle - No significant lifestyle changes since last visit. Discussed with patient. Patient is agreeable to CGM Patient aware to contact clinic if any hypoglycemia before next visit. MEDICATION CHANGES: yes, see below; preferred pharmacy: [facility] Diabetic Medications: Ozempic 2 mg weekly Jardiance 25 mg daily Lantus 23 units daily START: Novolog 5 units with meals Dexcom G7 Atorvastatin 40 mg daily HEALTH MAINTENANCE INTERVENTIONS: Labs: Ordered & Scheduled: HgA1c Immunizations: Up to Date Foot Exam: Up to Date Eye Exam: Up to Date Annual Wellness Visit: N/A FOLLOW UP: Return to clinic in 8 weeks 07/01/2024 I spent a total of 30-39 minutes (exact time 30 mins) on the date of service in preparation, delivery, and documentation of the care provided to Anthony Jett Sr. excluding any time spent in the performance of separately billed services. Cassie Reyes [facility] Clinical Pharmacist - Building Cleaning Supervisor Medication Therapy Management Clinic 04/29/2024, 8:55 AM documented in this encounter Plan of Treatment Upcoming Encounters Date Type Department Care Team (Late st Contact Info) Description 07/01/2024 10:00 AM EDT Office Visit Pharmacy, [facility] 132 [facility] [place] [address] [facility] 132 [facility] [place] [address] Scheduled Procedures Name Priority Associated Diagnoses Date/Ti [...] 05/02/2022, Additional history exists B-12 04/22/2024 04/22/2023, 06/06/2022, 08/23/2021 GFR 04/22/2024 04/22/2023, 06/0 06/2022, 07/31/2022, [...] as of this encounter Visit Diagnoses Diagnosis Type 2 diabetes mellitus with hemoglobin A1c goal of less than 7.0% (HCC)- Primary documented in this encounter Care Teams Court Assistant Relationship Specialty Start Date End Date Charels Gonzales MD [address] [place] [address] PCP - General Family Medicine 08/24/21 documented as of this encounter
--- OUTSIDE RECORDS SUMMARY | 2024-07-12 02:16 | External Medical Summary | Summary of Care ---
Author Name Unknown Organization [facility] Address [address] [place] [address] Phone [phone] Care Team Providers Care Merchandise Marker Name Role Phone Charles Gonzales MD Primary Care Provider + Reason for Visit * Reason Onset Date Comments Appointment 07/08/2024 Encounter Details Date Type Department Care Team (Late st Contact Info) Description 07/08/[address] [phone] Services, Scheduling [address] [place] [address] Appointment Allergies No known active allergiesdocumented as of this encounter (statuses as of 07/08/2024) Medications ONETOUCH LANCETS MISC Use to test [...] meals. 15 mL 11 04/29/19 Active Pen [place] 33G X 4 MM Use as directed. Use to inject insulin four times daily E11.9 400 Each 5 04/29/19 Active Ozempic (2 MG/DOSE) 8 MG/3ML Subcutaneous Solution Pen-injector (Semaglutide (2 MG/DOSE))Indicat ions:Type 2 diabetes mellitus with hemoglobin A1c goal of less than 7.0% (HCC) INJECT 2 MG SUBCUTANEOUSLY ONE TIME PER WEEK 3 mL 1 06/25/19 Active Insulin Glargine 100 UNIT/ML Subcutaneous Solution (Lantus) Inject 26 Units under the skin at bedtime. 10 mL 07/02/19 Active Hospital, Clinic, or Other Facility [...] as of this encounter (statuses as of 07/08/2024) Active Problems Problem Noted Date Diagnosed Date [...] as of this encounter (statuses as of 07/08/2024) Resolved Problems Problem Noted Date Diagnosed Date Resolved Date Thoracic back pain 10/31/2015 8 Skin tag 11/19/2011 09/16/2017 Umbilical hernia 11/19/2011 09/11/2021 Overview (09/11/2021): Historical- umbilical hernia repair done 03/2019 Impaired fasting glucose documented as of this encounter (statuses as of 07/08/2024) Immunizations Name Administration Dates Next Due COVID-19 [...] Industry Job Start Date Job End Date [employer]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 Abril Andrade RN 07/08/2024 9:58 AM * Telephone Encounter - Dana Hitchcock TECH - 07/08/2024 9:52 AM EDT TRC. Tentatively scheduled pt for 07/14/24 at 9 AM. TAWNYA Garcia 07/08/2024 9:52 AM * Telephone Encounter - Ghada Jc OSA - 07/08/2024 7:53 AM EDT Pt Renu called to cx pt ret inj appt for today due to illness. She is asking to reschedule appt for next week. No appts avail until august- please call her back with a new appt at [phone] documented in this encounter Plan of Treatment Upcoming Encounters Date Type Department Care Team (Late st Contact Info) Description 07/10/2024 11:00 AM EDT Office Visit Family Practice [facility] [address] [place] [address] Cristy Willis CRNP [address] [place] [address] 07/14/2024 9:00 AM EDT Office Visit Ophthalmology, [facility] [address] [place] [phone] Quinton Will DO [address] [place] [address] 09/23/2024 10:00 AM EDT Office Visit Pharmacy, [facility] [address] [address] [facility] [address] [place] [address] Scheduled Procedures Name Priority Associated Diagnoses Date/Ti [...] filedocumented as of this encounter Care Teams Merchandise Marker Relationship Specialty Start Date End Date Charles Gonzales MD [address] [place] [address] PCP - General Family Medicine 08/24/21 documented as of this encounter
--- OUTSIDE RECORDS SUMMARY | 2024-07-12 02:16 | External Medical Summary | Summary of Care ---
Author Name Unknown Organization [facility] Address [address] [place] [address] Phone [phone] Care Team Providers Care Respiratory Care Specialist Name Role Phone Charles Gonzales MD Primary Care Provider + Reason for Visit * Reason Comments Follow Up Encounter Details Date Type Department Care Team (Late st Contact Info) Description 07/01/2024 11:30 AM EDT Office Visit Ophthalmology, [facility] [address] [facility] [place] [address] Quinton Will, [address] [facility] [place] [address] Severe nonproliferative diabetic retinopathy of both eyes [...] 15 mL 11 04/29/19 25 Active Pen [place] 33G X 4 MM Use as directed. 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 Not on file Not on file No t on file documented as of this encounter Progress Notes * Quinton Will DO - 07/01/2024 11:30 AM EDT [facility] [place] Nursing Notes: Quinton [...] clear optic nerve: 0.15, no edema/pallor/NVD macula: +welfare case worker/cws, CSME vessels: wnl periphery: + ENHANCED ENVIRONMENTAL OPERATOR; no RT/RD Dilated fundus exam OS: vitreous: clear optic nerve: 0.2, no edema/pallor/NVD macula: +welfare case worker/cws, CSME vessels: wnl periphery: + ENHANCED ENVIRONMENTAL OPERATOR; no RT/RD OCT Interpretation: OD: CIDME, no pvd--worse 161um OS: CIDME, no pvd--worse 55um OCTA Interpretation: 07/31/2022 OD: marked capillary dropout OS: marked capillary dropout Fluorescein Interpretation: 02/06/2024 OD: capillary nonperfusion OS: capillary nonperfusion, small NVE ST macula A/P: 1. Severe Nonproliferative diabetic retinopathy OU -DM2 since approx 2011 -pt was released by [facility] due to noncompliance -h/o Avastin OU at [facility] --last 2020 -BS were poorly [...] Will DO Avastin 2.75 mg lot # [id number] Exp. Date: 08/01/2024 * Quinton Israel TECH [...] 11:00 AM EDT Office Visit Family Practice [facility] [address] [facility] [place] [address] Cristy Willis CRNP [address] [place] [address] 09/23/2024 10:00 AM EDT [facility] [place] [address] [facility] [address] [place] [address] Scheduled Orders Name Type Priority Associated Diagnoses [...] Right documented in this encounter Care Teams Respiratory Care Specialist Relationship Specialty Start Date End Date Charles Gonzales MD [address] [place] [address] PCP - General Family Medicine 08/24/21 documented as of this encounter
--- OUTSIDE RECORDS SUMMARY | 2024-07-12 02:16 | External Medical Summary | Summary of Care ---
Author Name Unknown Organization [facility] Address [address] [place] [address] Phone [phone] Care Team Providers Care Pneumatic System Conveyor Operator Name Role Phone Charles Salinas MD Primary Care Provider + Reason for Visit * Reason Comments eRx-Medication Refill Encounter Details Date Type Department Care Team (Late st Contact Info) Description 04/01/2024 Refill Family Practice [facility] [place] [address] Charles Salinas MD [address] [facility] [place] [address] Type 2 diabetes mellitus with hemoglobin A1c goal of less than 7.0% (HCC) Allergies No known active allergiesdocumented as of this encounter (statuses as of 04/03/2024) Medications ONETOUCH LANCETS MISC Use to test BG up to twice daily 200 Each 3 019 Active OneTouch Verio In Vitro Strip (Glucose Blood) Use to test BG up to twice daily 200 Strip 3 022 Active Jardiance 25 MG Oral Tablet (Empagliflozin) Indications:Typ e 2 diabetes mellitus with hemoglobin A1c goal of less than 7.0% (HCC) TAKE 1 TABLET BY MOUTH EVERY DAY IN THE MORNING 90 Tablet 2 024 Active Pen [place] 33G X 4 MM Use as directed. Use to inject insulin once daily E11.9 100 Each 5 024 Active Dexcom G7 Sensor Use as directed every 10 days. Use 1 sensor every 10 days E11.9 3 Each 11 Active Atorvastatin Calcium 40 MG Oral Tablet (Lipitor)Indica tions:Dyslipide nova TAKE 1 TABLET BY MOUTH EVERY DAY IN THE MORNING 90 Tablet 3 Active Insulin Glargine 100 UNIT/ML Subcutaneous Solution (Lantus) Inject 22 Units under the skin at bedtime. 10 mL 12 024 Active Ozempic (2 MG/DOSE) 8 MG/3ML Subcutaneous Solution Pen-injector (Semaglutide (2 MG/DOSE))Indica tions:Type 2 diabetes mellitus with hemoglobin A1c goal of less than 7.0% (HCC) INJECT 2 MG SUBCUTANEOUSLY ONE TIME PER WEEK 3 mL 2 024 Active Ozempic (2 MG/DOSE) 8 MG/3ML Subcutaneous Solution Pen-injector (Semaglutide (2 MG/DOSE))Indica tions:Type 2 diabetes mellitus with hemoglobin A1c goal of less than 7.0% (HCC) Inject 2 mg under the skin once a week. 3 mL 5 024 2023 Discontinued documented as of this encounter (statuses as of 04/03/2024) Active Problems Problem Noted Date Diagnosed Date [...] as of this encounter (statuses as of 04/03/2024) Resolved Problems Problem Noted Date Diagnosed Date Resolved Date Thoracic back pain 10/31/2015 8 Skin tag 11/19/2011 09/16/2017 Umbilical hernia 11/19/2011 09/11/2021 Overview (09/11/2021): Historical- umbilical hernia repair done 03/2019 Impaired fasting glucose documented as of this encounter (statuses as of 04/03/2024) Immunizations Name Administration Dates Next Due COVID-19 [...] Industry Job Start Date Job End Date [employer]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 Not on file Not on file No t on file documented as of this encounter Miscellaneous Notes * Telephone Encounter - Kit Zamora [facility] - 04/03/2024 9:03 AM ESTSigned Prescriptions: Disp Refills Ozempic (2 MG/DOSE) 8 MG/3ML Subcutaneous *3 mL 2 Sig: INJECT 2MG SUBCUTANEOUSLY ONE TIME PER WEEKAuthorizing Provider: CHARLES SALINAS User: KIT ZAMORA documented in this encounter Plan of Treatment Upcoming Encounters Date Type Department Care Team (Late st Contact Info) Description 04/09/2024 8:00 AM EST Office Visit Ophthalmology, [facility] [address] [place] [address] Quinton Will DO [address] [place] [address] 04/29/2024 8:50 AM EST Office Visit Pharmacy, [facility] [address] [place] [address] [facility] [address] [place] [address] Scheduled Procedures Name Priority Associated Diagnoses Date/Ti [...] season) 2024 01/12/2024, 05/15/2020, 04/05/2020 Albumin/Creatinine Ratio 04/22/20242 024, 07/31/2022, 05/02/2022, Additional history exists B-12 04/22/2024 04/22/2023, 06/0 06/2022, 08/23/2021 GFR 04/22/2024 04/22/2023, 06/0 06/2022, 07/31/2022, Additional history exists HbA1c 07/14/2024 01/14/2024, 0705/2023, 04/22/2023, Additional history exists Diabetic Eye Exam [...] A1c goal of less than 7.0% (HCC) documented in this encounter Care Teams Pneumatic System Conveyor Operator Relationship Specialty Start Date End Date Charles Salinas MD [address] [place] [address] PCP - General Family Medicine 08/24/21 documented as of this encounter
--- OUTSIDE RECORDS SUMMARY | 2024-07-12 02:16 | External Medical Summary | Summary of Care ---
Author Name Unknown Organization [facility] Address [address] [place] [address] Phone [phone] Care Team Providers Care Jewelry Casting Model Maker Name Role Phone Charles Salinas MD Primary Care Provider + Reason for Visit * Reason Comments eRx-Medication Refill Encounter Details Date Type Department Care Team (Late st Contact Info) Description 02/14/2024 Refill Family Practice [facility] [address] [facility] [place] [address] Charles Salinas MD [address] [place] [address] Dyslipidemia; Diabetic peripheral neuropathy (HCC) Allergies No known active allergiesdocumented as of this encounter (statuses as of 02/15/2024) Medications ONETOUCH LANCETS MISC Use to test BG up to twice daily 200 Each 3 03/23/20 19 Active OneTouch Verio In Vitro Strip (Glucose Blood) Use to test BG up to twice daily 200 Strip 3 11/11/19 22 Active Jardiance 25 MG Oral Tablet (Empagliflozin)I ndications:Type 2 diabetes mellitus with hemoglobin A1c goal of less than 7.0% ([facility]) TAKE 1 TABLET BY MOUTH EVERY DAY IN THE MORNING 90 Tablet 2 09/12/19 24 Active Ozempic (2 MG/DOSE) 8 MG/3ML Subcutaneous Solution Pen-injector (Semaglutide (2 MG/DOSE))Indicat ions:Type 2 diabetes mellitus with hemoglobin A1c goal of less than 7.0% ([facility]) Inject 2 mg under the skin once a week. 3 mL 10/18/19 24 Active Insulin Glargine 100 UNIT/ML Subcutaneous Solution (Lantus) Inject 16 Units under the skin at bedtime. 10 mL 10/31/19 24 Active Pen Christine 33G X 4 MM Use as directed. Use to inject insulin once daily E11.9 100 Each 10/31/19 24 Active Dexcom G7 Sensor Use as directed every 10 days. Use 1 sensor every 10 days E11.9 3 Each 10/31/19 24 Active Atorvastatin Calcium 40 MG Oral Tablet (Lipitor)Indicat ions:Dyslipidemi a TAKE 1 TABLET BY MOUTH EVERY DAY IN THE MORNING 90 Tablet 3 02/15/20 24 Active Atorvastatin Calcium 40 MG Oral Tablet (Lipitor)Indicat ions:Dyslipidemi a TAKE 1 TABLET BY MOUTH EVERY DAY IN THE MORNING 90 Tablet 3 02/12/20 23 024 Discontinued documented as of this encounter (statuses as of 02/15/2024) Active Problems Problem Noted Date Diagnosed Date [...] as of this encounter (statuses as of 02/15/2024) Resolved Problems Problem Noted Date Diagnosed Date Resolved Date Thoracic back pain 10/31/2015 8 Skin tag 11/19/2011 09/16/2017 Umbilical hernia 11/19/2011 09/11/2021 Overview (09/11/2021): Historical- umbilical hernia repair done 03/2019 Impaired fasting glucose documented as of this encounter (statuses as of 02/15/2024) Immunizations Name Administration Dates Next Due COVID-19 [...] Industry Job Start Date Job End Date [employer]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 Not on file Not on file No t on file documented as of this encounter Miscellaneous Notes * Addendum Note - Martine Lozano RPh - 02/15/2024 8:28 AM ESTAddended by: MARTINE LOZANO on: 02/15/2024 08:28 AM Modules accepted: Orders * Telephone Encounter - Martine Lozano RPh - 02/15/2024 8:28 AM EST Signed Prescriptions: Disp Refills Atorvastatin Calcium 40 MG Oral Tablet (Li*90 Tab*3 Sig: TAKE 1 TABLET BY MOUTH EVERY DAY IN THE MORNINGAuthorizing Provider: CHARLES SALINAS User: MARTINE LOZANO documented in this encounter Plan of Treatment Upcoming Encounters Date Type Department Care Team (Late st Contact Info) Description 04/09/2024 8:00 AM EST Office Visit Ophthalmology, [facility] [address] [place] [address] Quinton Will DO [address] [place] [address] Scheduled Orders Name Type Priority Associated Diagnoses Orde r Schedule ALBUMIN / CREATININE RATIO, URINE Lab Routine Diabetic peripheral neuropathy (HCC) Expected: 02/15/2024, Expires: 02/14/2025 Scheduled Procedures Name Priority Associated Diagnoses Date/Ti [...] as of this encounter Visit Diagnoses Diagnosis Dyslipidemia Other and unspecified hyperlipidemia Diabetic peripheral neuropathy (HCC) Type II or unspecified type diabetes mellitus with neurological manifestations, not stated as uncontrolled documented in this encounter Care Teams Jewelry Casting Model Maker Relationship Specialty Start Date End Date Charles Salinas MD [address] [place] [address] PCP - General Family Medicine 08/24/21 documented as of this encounter
--- OUTSIDE RECORDS SUMMARY | 2024-07-12 02:16 | External Medical Summary | Summary of Care ---
Author Name Unknown Organization [facility] Address [address] [place] [address] Phone [phone] Care Team Providers Care Sales And Service Representative Name Role Phone Charles Gonzales MD Primary Care Provider + Reason for Visit * Reason Comments Dosage Adjustment In Person (Anticoag Cl inic) Diabetes Follow-Up Encounter Details Date Type Department Care Team (Late st Contact Info) Description 07/01/2024 10:00 AM EDT Office Visit Pharmacy, [facility] [address] [facility] [address] [facility] [address] [place] [address] Type 2 diabetes mellitus with hemoglobin A1c goal of less than 7.0% ([facility])* Allergies No known active allergiesdocumented as of [...] 15 mL 11 04/29/19 25 Active Pen [place] 33G X 4 MM Use as directed. [...] bedtime. 10 mL 12 07/02/19 25 Active Insulin Glargine 100 UNIT/ML Subcutaneous Solution (Lantus) Inject 22 Units under the skin at bedtime. 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 Medication Therapy Disease Management [facility] - Diabetes Management Progress Note Anthony Garcia Maliha Paulino., identified by name and date of , is a 63 year old male being seen for diabetes management/education. Patient presents for return diabetic visit. DIABETES: Current diabetic medications: Ozempic 2 mg weekly Jardiance 25 mg daily Lantus 23 units daily START: Novolog 5 units with meals Dexcom G7 Atorvastatin 40 mg daily Medication [...] Exam 08/24/2022 Depression Screening 05/02/2023 COVID-19 Vaccine () 03/08/2024 Albumin/Creatinine Ratio 04/22/2024 GFR 04/22/2024 B-12 04/22/2024 HbA1c 07/14/2024 ASSESSMENT & PLAN: ICD-10-CM 1. Type 2 diabetes mellitus with hemoglobin A1c goal of less than 7.0% ([facility]) E11.9 BG Readings - Blood sugars uncontrolled. BG values are much better controlled since last visit/starting novolog. Will obtain lab work today. Medications - Reviewed current regimen, patient is adherent to regimen. Will increase lantus slightly today. Patient is agreeable. Diet, Exercise, Lifestyle - No significant lifestyle changes since last visit. Discussed with patient. Patient is agreeable to CGM Patient aware to contact clinic if any hypoglycemia before next visit. MEDICATION CHANGES: yes, see below; preferred pharmacy: [facility] Diabetic Medications: Ozempic 2 mg weekly Jardiance 25 mg daily INCREASE: Lantus 26 units daily Novolog 5 units with meals Dexcom G7 Atorvastatin 40 mg daily HEALTH MAINTENANCE INTERVENTIONS: Labs: Up to Date Immunizations: Up to Date Foot Exam: Up to Date Eye Exam: Up to Date Annual Wellness Visit: Up to Date FOLLOW UP: Return to clinic in 12 weeks 09/23/2024 I spent a total of 20-29 minutes (exact time 25 mins) on the date of service in preparation, delivery, and documentation of the care provided to Anthony Jett . excluding any time spent in the performance of separately billed services. Cassie Reyes [facility] Clinical Pharmacist - Nanotechnology Engineering Technologist Medication Therapy Management Clinic 07/01/2024, 10:01 AM documented in this encounter Plan of Treatment Upcoming Encounters Date Type Department Care Team (Late st Contact Info) Description 07/10/2024 11:00 AM EDT Office Visit Family Practice [facility] [address] [place] [address] Cristy Willis CRNP [address] [place] [address] 09/23/2024 10:00 AM EDT Office Visit Pharmacy, [facility] [address] [place] [address] [facility] [address] [place] [address] Scheduled Procedures Name Priority Associated Diagnoses Date/Ti [...] Primary documented in this encounter Care Teams Sales And Service Representative Relationship Specialty Start Date End Date Charles Gonzales MD [address] [place] [address] PCP - General Family Medicine 5/19/22 documented as of this encounter
--- OUTSIDE RECORDS SUMMARY | 2024-07-12 02:16 | External Medical Summary | Summary of Care ---
Author Name Unknown Organization [facility] Address [address] [place] [address] Phone [phone] Care Team Providers Care Regional Production Manager Name Role Phone Charles Gonzales MD Primary Care Provider + Reason for Referral * Evaluate & Treat - Unlimited Visits (Within 30 days (routine)) - Authorized Specialty Diagnoses / Procedures Referred By Contac t Referred To Contact General Surgery Diagnoses Abdominal wall fluid collections Cristy Willis CRNP [address] [place] [address] Phone: tel: fax: Referral ID Status Reason Start Date Expiration Date Visits Requested Visits Authorized [id number] Authorized Specialty Services Required 07/10/2024 [id number] Question Answer Referral Priority Within 30 days (routine) Where should this appointment be scheduled? [facility] What condition is the patient being seen for? General Surgery Conditions What condition is the patient being seen for? All other conditions Comments Abdominal wall fluid collection at site of previous umbilical hernia repair * Evaluate & Treat - Unlimited Visits (Within 30 days (routine)) - Authorized Specialty Diagnoses / Procedures Referred By Contac t Referred To Contact Physical Therapy / Physical Medicine And Rehab Diagnoses Hip pain, left Osteoarthritis of both hips, unspecified osteoarthritis type Pain of left hand Cristy Willis CRNP [address] [place] [address] Phone: tel: fax: Referral ID Status Reason Start Date Expiration Date Visits Requested Visits Authorized [id number] Authorized Specialty Services Required 07/10/2024 [id number] Question Answer Referral Priority Within 30 days (routine) Where should this appointment be scheduled? [facility] * Evaluate & Treat - Unlimited Visits (Within 30 days (routine)) - Authorized Specialty Diagnoses / Procedures Referred By Grace scott Referred To Contact Orthopaedic Surgery / Orthopedics Diagnoses Hip pain, left Pain of left hand Cristy Willis CRNP [address] [place] [address] Phone: tel: fax: Referral ID Status Reason Start Date Expiration Date Visits Requested Visits Authorized [id number] Authorized Specialty Services Required 07/10/2024 [id number] Question Answer Referral Priority Within 30 days (routine) Where should this appointment be scheduled? [facility] What body part is the patient being seen for? Hip What condition is the patient being seen for? Arthritis including related infection Comments And hand pain Reason for Visit * Reason Comments Re-Check Left hip pain, ER vi sit last night. [facility]. Need to try and get records. Was just there early this morning.Hand pain also, tendon problem. Encounter Details Date Type Department Care Team (Latest Contact Info) Description 07/10/2024 11:00 AM EDT Office Visit Family Practice [facility] [address] [place] [address] Cristy Willis CRNP [address] [place] [address] Hip pain, left*; Osteoarthritis of both hips, unspecified osteoarthritis type; Pain of left hand; Urinary frequency; Abdominal wall fluid collections Allergies No known active allergiesdocumented as of this encounter (statuses as of 07/10/2024) Medications ONETOUCH LANCETS MISC Use to test BG up to twice daily 200 Each 3 12/16/20 19 Active OneTouch Verio In Vitro Strip [...] 15 mL 11 04/29/19 25 Active Pen Mulga 33G X 4 MM Use as directed. 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 Not on file Not on file No t on file documented as of this encounter Last Filed Vital Signs Vital Sign Reading Time Taken Comments Blood Pressure 134/88 07/10/2024 11:00 AM EDT Pulse 106 07/10/2024 11:00 AM EDT Temperature - - Respiratory Rate - - Oxygen Saturation - - Inhaled Oxygen Concentration - - Weight 92.7 kg (204 lb 7 oz) 07/10/2024 11:00 AM EDT Height - - Body Mass Index 27.73 04/22/2023 11:28 AM EST documented in this encounter Progress Notes * Cristy Willis CRNP - 07/10/2024 11:06 AM EDT Follow up Family Medicine Visit CC: Chief Complaint Patient presents with Re-Check Left hip pain, ER visit last night. [facility]. Need to try and get records. Was just there early this morning. Hand pain also, tendon problem. History of Present Illness: History of Present Illness Anthony Jett, a patient with a history of diabetes and a previous umbilical hernia repair, presents with worsening left hip pain. The pain, which has been present for several years, has recently intensified after a weekend of yard work. The patient describes the pain as being located in the groin area and has noticed increased urinary frequency when the pain is severe. The patient also reportsa long-standing limited range of motion in the left hip compared to the right. In addition to the hip pain, the patient has noticed a lump in the left hand, with occasional pain in a specific spot. The patient also reports stiffness and popping in one of the fingers. The patient's diabetes has been well-controlled recently, with good numbers reported from home monitoring. The patient has lost 50 pounds since the umbilical hernia repair in 2018. 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 (HCC) Umbilical hernia 1998 dx no repair Past Surgical History: Procedure Laterality Date COLONOSCOPY, DIAGNOSTIC (RECTUM) 11/07/2015 poor prep, repeat/COLONOSCOPY FLEXIBLE PROXIMAL DIAGNOSTIC performed by Alexandru Velasquez MD at [facility] COLONOSCOPY, DIAGNOSTIC (RECTUM) 12/26/2015 normal, repeat 10 yrs/COLONOSCOPY FLEXIBLE PROXIMAL DIAGNOSTIC performed by Tl Hunter MD at ENDOSCOPY [facility] DESTRUCTION OF ANAL LESION(S), SIMPLE, SURGICAL EXCISION Anal Lesion(S) Surg Excision- rectal abcess FLUORESCEIN ANGIOGRAPHY MULTIFRAME 02/06/[address] [facility] [address] Will INJECTION OF EYE DRUG Right 10/18/2020 # 1 Avastin OD at [facility] INJECTION OF EYE DRUG Right 12/19/2020 # 2 Avastin OD at [facility] INJECTION OF EYE DRUG Right 07/01/2024 #3 Avastin OD, Dr. Will OTHER (INFORMATION) ACT 112 SIGNED 07/30/22 DR. WILL OTHER (INFORMATION) Avastin Consent EXP 07/01/2025 - Dr. Will UMBIL HERNIA REPAIR (INCARCERATED) AGE 5+YR 03/18/2019 dr valderrama, [facility] Current Outpatient Medications Medication Sig Dispense Refill Insulin Glargine 100 UNIT/ML Subcutaneous Solution (Lantus) Inject 26 Units under the skin at bedtime. 10 mL 12 Ozempic (2 MG/DOSE) 8 MG/3ML Subcutaneous Solution Pen-injector (Semaglutide (2 MG/DOSE)) INJECT 2 MG SUBCUTANEOUSLY ONE TIME PER WEEK 3 mL 1 NovoLOG FlexPen 100 UNIT/ML Subcutaneous Solution Pen-injector (insulin aspart) Inject 5 Units under the skin in the morning and 5 Units at noon and 5 Units in the evening. Inject with meals. 15 mL 11 Pen Mulga 33G X 4 MM Use as directed. Use to inject insulin four times daily E11.9 400 Each 5 Atorvastatin Calcium 40 MG Oral Tablet (Lipitor) TAKE 1 TABLET BY MOUTH EVERY DAY IN THE MORNING 90Tablet 3 Dexcom G7 Sensor Use as directed every 10 days. Use 1 sensor every 10 days E11.9 3 Each 11 Jardiance 25 MG Oral Tablet (Empagliflozin) TAKE 1 TABLET BY MOUTH EVERY DAY IN THE MORNING 90 Tablet 2 OneTouch Verio In Vitro Strip (Glucose Blood) Use to test BG up to twice daily 200 Strip 3 ONETOUCH LANCETS MISC Use to test BG up to twice daily 200 Each 3 Current Facility-Administered Medications Medication Dose Route Frequency Provider Last Rate Last Admin bevaCIZumab (Avastin) inj 1.25 mg 1.25 mg Intravitreal PRN 2.75 mg at 07/01/24 1325 ROPivacaine (Naropin) inj 1.5 mg 1.5 mg Injection PRN 1.5 mg at 07/01/24 1324 Review of patient's allergies indicates: No Known Allergies Most Recent Immunizations Administered Date(s) Administered COVID-19 mRNA, LNP-s, No Preserve, 2-Dose Series ([employer]) 05/15/2020 COVID-19, MRNA-LNP, 24-25, [place], 30MCG/0.3ML, IM, 12YRS AND ABOVE ([employer]- [facility]) 01/12/2024 Seasonal Influenza Vac., MDV, IM, 0.5 mL (Fluzone) 02/06/2014 Seasonal Influenza, PF, 6 M & above, IM , (FluLaval or Fluzone) 02/20/2018 Seasonal Influenza, Quadrivalent, No Preserve, IM 02/22/2016 TDAP, Age 7 and older, IM (Adacel) 02/06/2010 Review of Systems: Review of Systems Constitutional: Negative for fatigue. Cardiovascular: Negative for chest pain. Gastrointestinal: Negative for abdominal pain, diarrhea, nausea and vomiting. Genitourinary: Positive for frequency. Negative for difficulty urinating, dysuria and flank pain. Musculoskeletal: Positive for arthralgias and myalgias. Negative for gait problem and joint swelling. Physical Exam: BP 134/88 | Pulse 106 | Wt 204 lb 7 oz (92.7 kg) | BMI 27.73 kg/m² | BSA 2.17 m² Physical Exam HENT: Head: Normocephalic. Cardiovascular: Rate and Rhythm: Normal rate and regular rhythm. Pulmonary: Effort: Pulmonary effort is normal. Breath sounds: Normal breath sounds. Neurological: General: No focal deficit present. Mental Status: He is alert and oriented to person, place, and time. Psychiatric: Mood and Affect: Mood normal. Behavior: Behavior normal. Thought Content: Thought content normal. Judgment: Judgment normal. Assessment and Plan: Assessment & Plan Severe left hip osteoarthritis Severe left hip pain with [id number] per patient report on CT, indicating advanced osteoarthritis. Right hip less affected. Significant functional limitations reported. Naproxen prescribed by ED with caution due to reduced kidney function. - Refer to orthopedics for further evaluation and management options, including potential MRI and physical therapy. - Prescribe naproxen for two weeks for pain and inflammation, with caution due to reduced kidney function. - Recommend acetaminophen up to 3000 mg max per day for pain management. - Advise use of diclofenac gel for localized anti-inflammatory effect. - Discuss potential need for MRI and six weeks of physical therapy prior to MRI coverage. Dupuytren's contracture Signs of Dupuytren's contracture in the left hand with minimal functional impact. - Refer to orthopedics for evaluation of the left hand. - Advise use of diclofenac gel for discomfort in the hand. Chronic fluid collection at site umbilical hernia repair Chronic fluid collection beneath the anterior abdominal wall.. No symptoms or complications reported. - Refer to general surgery for evaluation of the chronic fluid collection. - Order an ultrasound of the umbilical area to further assess the fluid collection. Bilateral perinephritic stranding Mild bilateral perinephritic stranding on CT, possibly indicative of past kidney infection or scarring. Urine culture ordered to rule out current infection. - Order urine culture to rule out current infection. Type 2 diabetes mellitus with reduced kidney function Type 2 diabetes with slightly reduced kidney function, likely secondary to diabetes. On insulin therapy with good glycemic control. Advised caution with NSAIDs like naproxen. - Monitor kidney function and adjust medications as necessary, particularly NSAIDs like naproxen. Follow-up Requires follow-up for multiple conditions, including orthopedic and surgical evaluations. - Provide a list of all appointments and tests upon checkout. - Ensure he receives a copy of the CT report for the general surgery consultation. - Order urine labs to be completed at the lab. Text in this note was generated using an [employer] documentation service. I discussed the use of a device to record and summarize our discussion today. All persons present during the encounter consented to its use. I have advised the patient to call our office incase of any worsening or new symptoms. I spent a total of 30-39 minutes (exact time 30 mins) on the date of service in preparation, delivery, and documentation of the care provided to Anthony Jett . excluding any time spent in the performance of separately billed services. Venecia, MALENA, SH[facility] documented in this encounter Plan of Treatment Upcoming Encounters Date Type Department Care Team (Late st Contact Info) Description 07/14/2024 9:00 AM EDT Office Visit Ophthalmology, [facility] [address] [place] [phone] Quinton Will DO [address] [place] [address] 07/16/2024 8:45 AM EDT Imaging Radiology [facility] [address] [place] [phone] 07/20/2024 1:00 PM EDT Office Visit Orthopaedics [facility] [address] [place] [address] Patricia Shin MD [address] [place] [phone] 09/23/2024 10:00 AM EDT Office Visit Pharmacy, [facility] [address] [place] [address] [facility] [address] [place] [address] Scheduled Orders Name Type Priority Associated Diagnoses Orde r Schedule US ABDOMEN LIMITED Medical Imaging Routine Abdominal wall fluid collections Expected: 07/10/2024, Expires: 08/09/2025 Scheduled Procedures Name Priority Associated Diagnoses Date/Ti me COLONOSCOPY FLEXIBLE PROXIMAL DIAGNOSTIC Recall Colon cancer screening Scheduled Referrals Name Type Priority Associated Diagnoses Orde r Schedule ORTHOPAEDICS REFERRAL OP Referral Within 30 days (routine) Hip pain, left Pain of left hand Ordered: 07/10/2024 PHYSICAL THERAPY REFERRAL OP Referral Within 30 days (routine) Hip pain, left Osteoarthritis of both hips, unspecified osteoarthritis type Pain of left hand Ordered: 07/10/2024 SURGERY REFERRAL OP Referral Within 30 da ys (routine) Abdominal wall fluid collections Ordered: 07/10/2024 Health Maintenance Due Date Last Done Comments [...] 02/09/2024 01/12/2024, 05/15/2020, 04/05/2020 Albumin/Creatinine Ratio 04/22/2024 025, 04/22/2023, 07/31/2022, Additional history exists GFR 04/22/2024 04/22/2023, 06/0 [...] as of this encounter Visit Diagnoses Diagnosis Hip pain, left- Primary Pain in joint, pelvic region and thigh Osteoarthritis of both hips, unspecified osteoarthritis type Pain of left hand Pain in limb Urinary frequency Abdominal wall fluid collections Other ascites documented in this encounter Care Teams Regional Production Manager Relationship Specialty Start Date End Date Charles Gonzales MD [address] [facility] [place] [address] PCP - General Family Medicine 08/24/21 documented as of this encounter"
--- OUTSIDE RECORDS SUMMARY | 2024-07-12 02:16 | External Medical Summary | Summary of Care ---
Author Name Unknown Organization [facility] Address [address] [place] [address] Phone [phone] Care Team Providers Care Pasteurizer Helper Name Role Phone Charles Gonzales MD Primary Care Provider + Reason for Visit * Reason Onset Date Comments Appointment 07/08/2024 Encounter Details Date Type Department Care Team (Late st Contact Info) Description 07/08/[address] [phone] Services, Scheduling [address] [place] [address] Appointment Allergies No known active allergiesdocumented as [...] meals. 15 mL 11 04/29/19 Active Pen [place] 33G X 4 MM Use as directed. 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 Not on file [...] her back with a new appt at [phone] documented in this encounter Plan of Treatment Upcoming Encounters Date Type Department Care Team (Late st Contact Info) Description 07/10/2024 11:00 AM EDT Office Visit Family Practice [facility] [address] [address] Cristy Willis CRNP [address] [place] [address] 07/14/2024 9:00 AM EDT Office Visit Ophthalmology, [facility] [address] [place] [phone] Quinton Will DO [address] [place] [address] 09/23/2024 10:00 AM EDT Office Visit Pharmacy, [facility] [address] [address] [facility] [address] [address] Scheduled Procedures Name Priority Associated Diagnoses Date/Ti [...] filedocumented as of this encounter Care Teams Pasteurizer Helper Relationship Specialty Start Date End Date Charles Gonzales MD [address] [place] [address] PCP - General Family Medicine 08/24/21 documented as of this encounter
--- OUTSIDE RECORDS SUMMARY | 2024-07-12 02:16 | External Medical Summary | Summary of Care ---
Author Name Unknown Organization [facility] Address [address] [place] [address] Phone [phone] Care Team Providers Care Steel Layout Worker Name Role Phone Charles Gonzales MD Primary Care Provider + Reason for Visit * Reason Onset Date Comments Blood Sugar Problem 03/18/2024 Encounter Details Date Type Department Care Team (Late st Contact Info) Description 03/18/2024 Telephone [facility], [facility] Pablo Saenz [address] [place] [address] [place] [address] [facility] [address] [place] [address] Blood Sugar Problem Allergies No known active allergiesdocumented as of this encounter (statuses as of 03/18/2024) Medications ONETOUCH LANCETS MISC Use to test BG up to twice daily 200 Each 3 9 Active OneTouch Verio In Vitro Strip (Glucose Blood) Use to test BG up to twice daily 200 Strip 3 2 Active Jardiance 25 MG Oral Tablet (Empagliflozin)I [...] a week. 3 mL 5 4 Active Pen [place] 33G X 4 MM Use as directed. Use to inject insulin once daily E11.9 100 Each 5 4 Active Dexcom G7 Sensor Use as directed every 10 days. Use 1 sensor every 10 days E11.9 3 Each 4 Active Atorvastatin Calcium 40 MG Oral Tablet (Lipitor)Indicat ions:Dyslipidemi a TAKE 1 TABLET BY MOUTH EVERY DAY IN THE MORNING 90 Tablet 3 4 Active Insulin Glargine 100 UNIT/ML Subcutaneous Solution (Lantus) Inject 22 Units under the skin at bedtime. 10 mL 12 4 Active Insulin Glargine 100 UNIT/ML Subcutaneous Solution (Lantus) Inject 16 Units under the skin at bedtime. 10 mL 12 4 03/18/20 24 Discontinu ed(Refill) documented as of this encounter (statuses as of 03/18/2024) Active Problems Problem Noted Date Diagnosed Date [...] as of this encounter (statuses as of 03/18/2024) Resolved Problems Problem Noted Date Diagnosed Date Resolved Date Thoracic back pain 10/31/2015 8 Skin tag 11/19/2011 09/16/2017 Umbilical hernia 11/19/2011 09/11/2021 Overview (09/11/2021): Historical- umbilical hernia repair done 03/2019 Impaired fasting glucose documented as of this encounter (statuses as of 03/18/2024) Immunizations Name Administration Dates Next Due COVID-19 mRNA, LNP-s, No Pre serve, 2-Dose Series ([place]) 05/15/2020,04/05/2020 Seasonal Influenza Vac., MDV, IM, 0.5 [...] Industry Job Start Date Job End Date [employer]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 Patient notes he is compliant with medications at this time. Recommend to increase Lantus to 22 units daily at this time. Will discuss meal time insulin in the next visit with patient. Cassie Reyes, Pharm D, BCACP Clinical Pharmacist 03/18/2024, 10:33 AM * Telephone Encounter - Henny Regan PHARM Tech - 03/18/2024 10:19 AM EST Caller's name: Renu Preferred call back number(OFFICE NUMBER FOR ): [phone] Reason for call: Patient's called to r/s cx appointment from February. Next available isn't until end of April. Patient's sugar levels have been consistently high, going into the 400's. Would like an earlier appointment if on becomes available. Would also like a call back from [facility] todiscuss insulin dosage. Henny Regan Staff Developer [facility] [address] [place] [address] [address]. [address] [id number] 03/18/2024,10:20 AM documented in this encounter Plan of Treatment Upcoming Encounters Date Type Department Care Team (Late st Contact Info) Description 04/09/2024 8:00 AM EST Office Visit Ophthalmology, [facility] [address] [place] [address] Quinton Will DO [address] [place] [address] 04/29/2024 8:50 AM EST Office Visit Pharmacy, [facility] [address] [place] [address] [facility] [address] [place] [address] Scheduled Procedures Name Priority Associated Diagnoses Date/Ti [...] filedocumented as of this encounter Care Teams Steel Layout Worker Relationship Specialty Start Date End Date Charles Gonzales MD [address] [address] PCP - General Family Medicine 08/24/21 documented as of this encounter
--- OUTSIDE RECORDS SUMMARY | 2024-07-12 02:16 | External Medical Summary | Summary of Care ---
Author Name Unknown Organization [facility] Address [address] [place] [address] Phone [phone] Care Team Providers Care Rn Palliative Care Name Role Phone Charles Salinas MD Primary Care Provider + Reason for Visit * Reason Comments eRx-Medication Refill Encounter Details Date Type Department Care Team (Late st Contact Info) Description 06/23/2024 Refill Family Practice [facility] [place] [address] Charles Salinas MD [address] [place] [address] Encounter for long-term (current) drug use*; Type 2 diabetes mellitus with hemoglobin A1c goal of less than 7.0% (HCC) Allergies No known active allergiesdocumented as of this encounter (statuses as of 06/28/2024) Medications ONETOUCH LANCETS MISC Use to test [...] THE MORNING 90 Tablet 2 024 Active Dexcom G7 Sensor Use as directed every 10 days. Use 1 sensor every 10 days E11.9 3 Each 11 024 Active Atorvastatin Calcium 40 MG Oral Tablet (Lipitor)Indica tions:Dyslipide nova TAKE 1 TABLET BY MOUTH EVERY DAY IN THE MORNING 90 Tablet 3 024 Active Insulin Glargine 100 UNIT/ML Subcutaneous Solution (Lantus) Inject 22 Units under the skin at bedtime. 10 mL 12 024 Active NovoLOG FlexPen 100 UNIT/ML Subcutaneous Solution Pen-injector (insulin aspart) Inject 5 Units under the skin in the morning and 5 Units at noon and 5 Units in the evening. Inject with meals. 15 mL 11 025 Active Pen [place] 33G X 4 MM Use as directed. Use to inject insulin four times daily E11.9 400 Each 5 025 Active Ozempic (2 MG/DOSE) 8 MG/3ML Subcutaneous Solution Pen-injector (Semaglutide (2 MG/DOSE))Indica tions:Type 2 diabetes mellitus with hemoglobin A1c goal of less than 7.0% (HCC) INJECT 2 MG SUBCUTANEOUSLY ONE TIME PER WEEK 3 mL 1 025 Active Ozempic (2 MG/DOSE) 8 MG/3ML Subcutaneous Solution Pen-injector (Semaglutide (2 MG/DOSE))Indica tions:Type 2 diabetes mellitus with hemoglobin A1c goal of less than 7.0% (HCC) INJECT 2 MG SUBCUTANEOUSLY ONE TIME PER WEEK 3 mL 2 024 2024 Discontinued documented as of this encounter (statuses as of 06/28/2024) Active Problems Problem Noted Date Diagnosed Date [...] as of this encounter (statuses as of 06/28/2024) Resolved Problems Problem Noted Date Diagnosed Date Resolved Date Thoracic back pain 10/31/2015 8 Skin tag 11/19/2011 09/16/2017 Umbilical hernia 11/19/2011 09/11/2021 Overview (09/11/2021): Historical- umbilical hernia repair done 03/2019 Impaired fasting glucose documented as of this encounter (statuses as of 06/28/2024) Immunizations Name Administration Dates Next Due COVID-19 [...] Industry Job Start Date Job End Date [employer]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 Patient was notified. Successfully contacted patient and provided [facility] message. * Telephone Encounter - Danelle Ruelas, [facility] - 06/24/2024 7:51 AM EDTSigned Prescriptions: Disp Refills Ozempic (2 MG/DOSE) 8 MG/3ML Subcutaneous *3 mL 1 Sig: INJECT 2 MG SUBCUTANEOUSLY ONE TIME PER WEEK Authorizing Provider: CHARLES SALINAS Ordering User: DANELLE RUELAS * Telephone Encounter - Danelle Ruelas RP - 06/24/2024 7:45 AM EDT Provided 28 days supply with 1 refill(s). Per refill protocol patient should have ROUTINE LABS on file within past year. Reviewed : AMP report Care Gaps/Health Maintenance medications list for any routine labs typically ordered for this patient. Lab orders placed. Please contact patient to advise of labs ordered for blood draw AND URINE specimen (patient will have to be able to void to provide sample). Recommend patient to fast if able for labs. Patient may still have water and regular medications. Advise to obtain labs before requesting the next refill. Thank you, Danelle Ruelas, PharmD Clinical Pharmacist [facility] ([facility]) [phone] 06/24/2024, 7:50 AM documented in this encounter Plan of Treatment Upcoming Encounters Date Type Department Care Team (Late st Contact Info) Description 07/01/2024 10:00 AM EDT Office Visit Pharmacy, [facility] [address] [address] [facility] [address] [address] 07/01/2024 11:30 AM EDT Office Visit Ophthalmology, [facility] [address] [address] Quinton Will, DO [address] [place] [address] Scheduled Orders Name Type Priority Associated Diagnoses Orde r Schedule BASIC METABOLIC PANEL Lab Routine Type 2 diabetes mellitus with hemoglobin A1c goal of less than 7.0% (HCC) Expected: 06/24/2024, Expires: 06/24/2025 HEMOGLOBIN A1C Lab Routine Type 2 diabetes mellitus with hemoglobin A1c goal of less than 7.0% (HCC) Expected: 06/24/2024, Expires: 06/24/2025 VITAMIN B12 Lab Routine Encounter for long-term (current) drug use Expected: 06/24/2024, Expires: 06/24/2025 Scheduled Procedures Name Priority Associated Diagnoses Date/Ti [...] season) 2024 01/12/2024, 05/15/2020, 04/05/2020 Albumin/Creatinine Ratio 04/22/202404/22/2 024, 07/31/2022, 05/02/2022, Additional history exists B-12 [...] as of this encounter Visit Diagnoses Diagnosis Encounter for long-term (current) drug use- Primary Encounter for long-term (current) use of other medications Type 2 diabetes mellitus with hemoglobin A1c goal of less than 7.0% (HCC) documented in this encounter Care Teams Rn Palliative Care Relationship Specialty Start Date End Date Charles Salinas MD [address] [place] [address] PCP - General Family Medicine 08/24/21 documented as of this encounter
--- OUTSIDE RECORDS SUMMARY | 2024-07-12 02:17 | External Medical Summary | Summary of Care ---
Author Name Unknown Organization [facility] Address [address] [place] [address] Phone [phone] Care Team Providers Care Car Driver Name Role Phone Charles Salinas MD Primary Care Provider + Reason for Visit * Reason Comments eRx-Medication Refill Encounter Details Date Type Department Care Team (Late st Contact Info) Description 02/14/2024 Refill Family Practice [facility] [place] [address] Charles Salinas MD [address] [facility] [place] [address] Dyslipidemia; Diabetic peripheral neuropathy (HCC) Allergies No [...] hemoglobin A1c goal of less than 7.0% ([facility]) TAKE 1 TABLET BY MOUTH EVERY DAY IN THE MORNING 90 Tablet 2 09/12/19 24 Active Ozempic (2 MG/DOSE) 8 MG/3ML Subcutaneous Solution Pen-injector (Semaglutide (2 MG/DOSE))Indicat ions:Type 2 diabetes mellitus with hemoglobin A1c goal of less than 7.0% ([facility]) Inject 2 mg under the skin once a week. 3 mL 10/18/19 24 Active Insulin Glargine 100 UNIT/ML Subcutaneous Solution (Lantus) Inject 16 Units under the skin at bedtime. 10 mL 10/31/19 24 Active Pen [place] 33G X 4 MM Use as directed. 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
--- OUTSIDE RECORDS SUMMARY | 2024-07-12 02:17 | External Medical Summary | Summary of Care ---
Author Name Unknown Organization [facility] Address [address] [place] [address] Phone [phone] Care Team Providers Care Pattern Marker Name Role Phone Charles Gonzales MD Primary Care Provider + Reason for Visit * Reason Comments Follow Up Encounter Details Date Type Department Care Team (Late st Contact Info) Description 02/06/2024 8:45 AM EDT Office Visit Ophthalmology, [facility] [address] [facility] [place] [address] Quinton Will, [address] [facility] [address] 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 associated with type 2 diabetes mellitus (HCC)* Allergies No known active allergiesdocumented as of this encounter (statuses as of 02/06/2024) Medications Medication Sig Dispensed Refills Start Date End Date Status ONETOUCH LANCETS MISC Use to test BG up to twice daily 200 Each 3 03/23/2019 Active OneTouch Verio In Vitro Strip (Glucose Blood) Use to test BG up to twice daily 200 Strip 3 11/10/2021 Active Atorvastatin Calcium 40 MG Oral Tablet (Lipitor)Indicatio ns:Dyslipidemia TAKE 1 TABLET BY MOUTH EVERY DAY IN THE MORNING 90 Tablet 3 02/11/2023 Active Jardiance 25 MG Oral Tablet (Empagliflozin)Ind ications:Type 2 diabetes mellitus with hemoglobin A1c goal of less than 7.0% (HCC) TAKE 1 TABLET BY MOUTH EVERY DAY IN THE MORNING 90 Tablet 2 09/12/2023 Active Ozempic (2 MG/DOSE) 8 MG/3ML Subcutaneous Solution Pen-injector (Semaglutide (2 MG/DOSE))Indicatio ns:Type 2 diabetes mellitus with hemoglobin A1c goal of less than 7.0% (HCC) Inject 2 mg under the skin once a week. 3 mL 5 10/18/2023 Active Insulin Glargine 100 UNIT/ML Subcutaneous Solution (Lantus) Inject 16 Units under the skin at bedtime. 10 mL 12 10/31/2023 Active Pen [place] 33G X 4 MM Use as directed. Use to inject insulin once daily E11.9 100 Each 10/31/2023 Active Dexcom G7 Sensor Use as directed every 10 days. Use 1 sensor every 10 days E11.9 3 Each 11 10/31/2023 Active Losartan Potassium 25 MG Oral Tablet (Cozaar) Take 1 Tablet by mouth in the morning. 90 Tablet 3 10/31/2023 02/06/2024 Discontinued (Medication List Clean Up) Hospital, Clinic, or Other Facility Administered Medication Ordered Dose Route Frequency Start Date End Date Status Fluorescein Sodium (Fluorescite) inj 500 mgIndications: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 associated with type 2 diabetes mellitus (HCC) 500 mg IV ONCE 02/06/2024 02/06/2024 E nded documented as of this encounter (statuses as of 02/06/2024) Active Problems Problem Noted Date Diagnosed Date Diabetic peripheral neuropathy 04/23/2023 Moderate nonproliferative di abetic retinopathy of both eyes with macular edema associated with type 2 diabetes mellitus 04/22/2023 Uncontrolled type 2 diabetes mellitus with hyper glycemia 09/08/2022 Type 2 diabetes mellitus wit h hemoglobin A1c goal of less than 7.0% 04/20/2015 Overview: ICD-10 update of inactive term Well adult exam 04/26/2014 Overview: 07/30 Stress echo WNL. documented as of this encounter (statuses as of 02/06/2024) Resolved Problems Problem Noted Date Diagnosed Date Resolved Date Thoracic back pain 10/31/2015 8 Skin tag 11/19/2011 09/16/2017 Umbilical hernia 11/19/2011 09/11/2021 Overview: Historical- umbilical hernia repair done 03/2019 Impaired fasting glucose documented as of this encounter (statuses as of 02/06/2024) Immunizations Name Administration Dates Next Due COVID-19 [...] Recorded Sex Assigned at Not on file Gender Identity Not on file Sexual Orientation Not on file Job Start Date Occupation Industry Not on file Not on file Not on file documented as of this encounter Progress Notes * Quinton Will, - 02/06/2024 8:45 AM EDT [facility] [place] Nursing Notes: Abril Andrade RN 02/06/24 0907 Signed Anthony Jett . is a 63 year old year old male who presents for Mod. NODR OU. Last Office Visit: 07/31/2022 (in office), Visit date not found (telemedicine) Patient currently states "had 3 month check at [facility] and was told have bleed right eye; it is like looking through a prism or coke bottle- think has been going on about a year but did not come over here until got Diabetes under control so now it is under control and Dr. Muriel bassett come back here" Are you diabetic? Yes. Do you check [...] 08:[address]? yes OCT and Fundus image(s) of both eyes acquired and filed/scanned into chart. Base Eye Exam Visual Acuity (Snellen - Linear) Right Left Dist cc 20/40 -2 20/25 -1 Dist ph cc NI Correction: Glasses Tonometry (Tonopen, 9:05 AM) Right Left Pressure 13 14 Pupils Pupils Dark Light Shape React APD Right PERRL 3 3 Round Minimal None Left PERRL 3 3 Round Minimal None Visual Tee (Counting fingers) Right Left Full Full Extraocular Movement Right Left Full, Ortho Full, Ortho Neuro/Psych Oriented x3: Yes Mood/Affect: Normal Dilation Both eyes: 0.5% Proparacaine @ 9:03 AM Dilation #2 Both eyes: 1.0% Mydriacyl, 2.5% Phenylephrine @ 9:04 AM Dilation #3 Both eyes: 1.0% Mydriacyl, 2.5% Phenylephrine @ 9:07 AM Dilation Comments Patient cautioned that effects of dilation may last 2-7 hours dependant upon individual reaction. It was discussed that driving while dilated is not recommended. EXTERNAL: The ocular adnexae are unremarkable. SLE: Lids/Lashes: wnl OU Conjunctiva/Sclera: quiet OU Cornea: clear OU Anterior Chamber: deep and quiet OU Iris: normal OU; no NVI OU Lens: 1-2+NSC OU Dilated fundus exam OD: vitreous: clear optic nerve: 0.15, no edema/pallor/NVD macula: +process worker/cws, borderline CSME vessels: wnl periphery: + CREATIVE TECHNOLOGIST; no RT/RD Dilated fundus exam OS: vitreous: clear optic nerve: 0.2, no edema/pallor/NVD macula: +process worker/cws, no CSME vessels: wnl periphery: + CREATIVE TECHNOLOGIST; no RT/RD OCT Interpretation: OD: trace NCIDME, no pvd OS: trace NCDME, no pvd OCTA Interpretation: 07/31/2022 OD: marked capillary dropout OS: marked capillary dropout Fluorescein Interpretation: 02/06/2024 OD: capillary nonperfusion OS: capillary nonperfusion, small NVE ST macula A/P: 1. Severe Nonproliferative diabetic retinopathy OU -DM2 since approx 2011 -pt was released by [facility] due to noncompliance -h/o Avastin OU at [facility] --last 2020 -BS were poorly controlled at A1C 17 but currently improved -macular ischemia OD>OS -trace NCIDME OU -mild NVE OS -monitor -recommend HgbA1C <7, BP and lipid control. 2. Cataracts OU -not visually significant -recommend HgbA1C <7, BP and lipid control. f/u 8-10 weeks, OCT OU Quinton Will DO CC: Dr. Smith CC: Charles Gonzales MD documented in this encounter Nursing Notes * Abril Andrade RN - 02/06/2024 9:52 AM EDT FA done both eyes. FA vitals-BP 122/87 pulse 78. IV 23 gauge butterfly inserted in right anticubital. Fluorescein dye 5ml injected and flushed with NSS. Patient tolerance: Nausea and vomiting. IV site: discontinued.. Discharge instructions given. * Abril Andrade RN - 02/06/2024 8:53 AM EDT Anthony Jett . is a 63 year old year old male who presents for Mod. NODR OU. Last Office Visit: 07/31/2022 (in office), Visit date not found (telemedicine) Patient currently states "had 3 month check at [facility] and was told have bleed right eye; it is like looking through a prism or coke bottle- think has been going on about a year but did not come over here until got Diabetes under control so now it is under control and Dr. Muriel bassett come back here" Are you diabetic? Yes. Do you check [...] 08:[address]? yes OCT and Fundus image(s) of both eyes acquired and filed/scanned into chart. documented in this encounter Plan of Treatment Upcoming Encounters Date Type Department Care Team (Late st Contact Info) Description 02/12/2024 9:50 AM EST Office Visit Pharmacy, [facility] [address] [place] [address] [facility] [address] [place] [address] 04/09/2024 8:00 AM EST Office Visit Ophthalmology, [facility] [address] [place] [address] Quinton Will DO [address] [place] [address] Scheduled Orders Name Type Priority Associated Diagnoses Orde r Schedule FUNDUS PHOTOGRAPHY Procedures Routine 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 associated with type 2 diabetes mellitus (HCC) Ordered: 02/06/2024 RETINA SCAN DIAGNOSTIC IMAGE, POSTERIOR Procedures Routine 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 associated with type 2 diabetes mellitus (HCC) Ordered: 02/06/2024 FLUORESCEIN ANGIOGRAPHY MULTIFRAME Procedures Routine 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 associated with type 2 diabetes mellitus (HCC) Ordered: 02/06/2024 Scheduled Procedures Name Priority Associated Diagnoses Date/Ti [...] 0 09/16/2017, 10/14/2015 Depression Screening 05/02/2023 05/02/2022 Albumin/Creatinine Ratio 04/22/2024 024, 07/31/2022, 05/02/2022, Additional history exists B-12 04/22/2024 04/22/2023, 06/0 06/2022, 08/23/2021 GFR 04/22/2024 04/22/2023, 06/0 06/2022, 07/31/2022, Additional history exists HbA1c 07/14/2024 01/14/2024, 10/06, 04/22/2023, Additional history exists Diabetic Eye Exam 12/01/2024 12/02/2023, , 07/02/2022, Additional history exists Colonoscopy 12/25/2025 12/26/2015, 12/07, 11/07/2015, Additional history exists Colorectal Cancer Screening 12/25/2025 Lipid Panel 04/22/2028 04/22/2023, 08/06, 05/14/2016, Additional history exists COVID-19 Vaccine Completed 01/12/2024, 10/2020, 04/05/2020 Influenza Vaccine (FLU shot) Completed 09/2023, 02/20/2018, [...] Primary documented in this encounter Administered Medications Inactive Administered Medications - up to 3 most recent administrations Medication Order MAR Action Action Date Dose Rate Site Fluorescein Sodium (Fluorescite) inj 500 mg 500 mg (5 mL), Intravenous, ONCE, On Courtney 02/06/24 at 1045, For 1 dose Given 02/06/2024 10:43 AM EDT 500 mg Antecubital Right documented in this encounter Care Teams Pattern Marker Relationship Specialty Start Date End Date Charles Gonzales MD [address] [place] [address] PCP - General Family Medicine 08/24/21 documented as of this encounter
--- OUTSIDE RECORDS SUMMARY | 2024-07-12 02:17 | External Medical Summary ---
Author Name Unknown Address Unknown Organization [id number]:[facility] [place] [address] [facility] [address] Laboratory Report Ordering Provider Test Date Status IMELDA ISAAC 01/14/2024 06:40:00 Final Dried Blood Spot specimens h ave been validated for general health screening purposes only. This test should not be used for diagnosis or medical treatment without confirmation by other medically established means. The use of HbA1c to monitor glycemic status is based on normal hemoglobin and HbA composition, and should not be used in patients with abnormal hemoglobin that affects the half life of the red blood cell or the in vivo glycation rates.

This test was developed and its performance characteristics determined by [employer]. It has not been cleared or approved by the [place] Food and Drug Administration.

This test was performed as part of a [facility] [employer] fulfillment initiative.
null Observation Date Value Abnormality Reference (Units ) Status Hemoglobin A1c/Hemoglobin.total in DBS 01/14/2024 06:40:00 >8.0 Above high normal 4.0-5.6 (%) Final Glucose, estimated average 01/14/2024 06:40:00 >183 Above high normal <126 (mg/dL) Final Performing Location [facility] [place] - [address] [facility] [address]
--- OUTSIDE RECORDS SUMMARY | 2024-07-12 02:17 | External Medical Summary | Summary of Care ---
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 Role Phone Charles Gonzales MD Primary Care Provider + Reason for Visit * Reason Onset Date Comments Appointment 01/21/2024 Encounter Details Date Type Department Care Team (Late st Contact Info) Description 01/21/2024 Telephone Access Center, [place] [address] [facility] *DO NOT REMOVE THIS DEPARTMENT* [place] [address] Services, Scheduling [address] [place] [address] Appointment Allergies No known active allergiesdocumented as of this encounter (statuses as of 01/21/2024) Medications Medication Sig Dispensed Refills Start Date End Date Status ONETOUCH LANCETS MISC Use to test BG up to twice daily 200 Each 3 03/23/2019 Active OneTouch Verio In Vitro Strip (Glucose Blood) Use to test BG up to twice daily 200 Strip 3 11/10/2021 Active Atorvastatin Calcium 40 MG Oral Tablet (Lipitor)Indications: Dyslipidemia TAKE 1 TABLET BY MOUTH EVERY DAY IN THE MORNING 90 Tablet 3 02/11/2023 Active Jardiance 25 MG Oral Tablet (Empagliflozin)Indica tions:Type 2 diabetes mellitus with hemoglobin A1c goal of less than 7.0% (HCC) TAKE 1 TABLET BY MOUTH EVERY DAY IN THE MORNING 90 Tablet 2 09/12/2023 Active Ozempic (2 MG/DOSE) 8 MG/3ML Subcutaneous Solution Pen-injector (Semaglutide (2 MG/DOSE))Indications: Type 2 diabetes mellitus with hemoglobin A1c goal of less than 7.0% (HCC) Inject 2 mg under the skin once a week. 3 mL 10/18/2023 Active Insulin Glargine 100 UNIT/ML Subcutaneous Solution (Lantus) Inject 16 Units under the skin at bedtime. 10 mL 10/31/2023 Active Pen [place] 33G X 4 MM Use as directed. Use to inject insulin once daily E11.9 100 Each 10/31/2023 Active Losartan Potassium 25 MG Oral Tablet (Cozaar) Take 1 Tablet by mouth in the morning. 90 Tablet 3 10/31/2023 Active Dexcom G7 Sensor Use as directed every 10 days. Use 1 sensor every 10 days E11.9 3 Each 10/31/2023 Active documented as of this encounter (statuses as of 01/21/2024) Active Problems Problem Noted Date Diagnosed Date [...] as of this encounter (statuses as of 01/21/2024) Resolved Problems Problem Noted Date Diagnosed Date Resolved Date Thoracic back pain 10/31/2015 8 Skin tag 11/19/2011 09/16/2017 Umbilical hernia 11/19/2011 09/11/2021 Overview: Historical- umbilical hernia repair done 03/2019 Impaired fasting glucose documented as of this encounter (statuses as of 01/21/2024) Immunizations Name Administration Dates Next Due COVID-19 mRNA, LNP-s, No Pre serve, 2-Dose Series ([employer]) 05/15/2020,04/05/2020 Seasonal Influenza Vac., MDV, IM, 0.5 [...] encounter Miscellaneous Notes * Telephone Encounter - Jo Ann Hammonds MED ASSIST - 01/21/2024 12:26 PM EDT Called and spoke to pt offered appt 01/21 at 300pm pt declined states going to be out of town, offered next available 02/05 at 845 or 1045. Pt agreeable to 02/05 at 845 scheduled * Telephone Encounter - Vijaya Paula OSA - 01/21/2024 12:03 PM EDT PT calling, states he had to cancel Friday 01/19 with [facility] and he needs rescheduled SONIA- asking for anything available, thanks. documented in this encounter Plan of Treatment Upcoming Encounters Date Type Department Care Team (Late st Contact Info) Description 01/31/2024 9:00 AM EDT [facility] [address] [place] [address] [place], [facility] [place] [address] [place] [address] 02/06/2024 8:45 AM EDT Office Visit Ophthalmology, [facility] [address] [place] [address] Quinton Will, DO [address] [place] [address] Scheduled Procedures Name Priority Associated Diagnoses Date/Ti [...] filedocumented as of this encounter Care Teams Shot Core Drill Operator Helper Relationship Specialty Start Date End Date Charles Gonzales MD [address] [place] [address] PCP - General Family Medicine 08/24/21 documented as of this encounter
--- NOTE | 2024-07-12 02:25 | Emergency Department Note ---
ED Provider Note CHIEF COMPLAINT: Hip pain HISTORY OF PRESENTING ILLNESS: , and will REVIEW OF SYSTEMS: See HPI for pertinent positives and pertinent negatives. ALLERGIES: [] MEDICATIONS: [] PAST MEDICAL HISTORY: [] PHYSICAL EXAM: [] DIFFERENTIAL DIAGNOSIS: [] ED COURSE AND MEDICAL DECISION MAKING: HISTORY FROM INDEPENDENT HISTORIAN: [] MEDICATIONS GIVEN: [] MONITOR: Continuous director of perioperative services: Order was placed for continuous director of perioperative services. Patient was placed on the director of perioperative services and continuous pulse ox. Patient was noted to be in normal sinus rhythm at an initial rate of [] bpm per my interpretation. EKG: EKG was interpreted by myself as []. INTERPRETATION OF LABS: I interpreted the labs with full lab results as below in the lab section of this note. Pertinent lab results discussed in the MDM section below. INTERPRETATION OF IMAGING: Imaging studies were interpreted by myself and read by radiology as per the imaging section of this note. [] EXTERNAL RECORDS REVIEWED: [] CHRONIC MEDICAL/SOCIAL CONDITIONS AFFECTING CARE: [] ESCALATION OF CARE CONSIDERED: [] CONSULTATIONS: [] PROCEDURES: [] MDM SUMMARY: I examined the patient. An IV lock was placed and labs were drawn. []. The patient was educated on the treatment plan and the discharge instructions. The patient was discharged home in stable condition. DIAGNOSIS: [] The chart was completed utilizing [employer] Speech voice recognition software. Grammatical errors, random word insertions, pronoun errors, and incomplete sentences are an occasional consequence of this system due to software limitations, ambient noise, and hardware issues. Any formal questions or concerns about the content, text, or information contained within the body of this dictation should be directly addressed to the provider for clarification. 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 Beliefs That Will Affect Care: None Current Living Situation: Spouse Feels Safe at Home: Yes Assistive Devices: None Allergies Allergies Allergy/AdvReac Type Severity Reaction Status Date / Time No Known Allergies Allergy Unverified 10/15/23 19:38 Home Meds Home Medications Medication Instructions Recorded Confirmed atorvastatin 40 mg tablet 40 mg PO QAM 10/15/23 10/15/23 empagliflozin 25 mg tablet 25 mg PO QAM 10/15/23 10/15/23 (Jardiance) losartan 50 mg tablet 50 mg PO QAM 10/15/23 10/15/23 metformin 500 mg tablet,extended 2,000 mg PO DAILY 10/15/23 10/15/23 release 24 hr semaglutide 1 mg/dose (4 mg/3 mL) 1 mg subcut WK 10/15/23 10/15/23 subcutaneous pen injector (Ozempic) Results & Data (ED) Vital Signs Vital Signs - 24 hr 07/12/24 02:11 Temperature 36.6 C Temperature Source Temporal Artery Scan Pulse Rate 90 Respiratory Rate 18 Respiratory Effort / Characteristics Non-Labored Spontaneous Respiratory Depth Normal Blood Pressure 185/93 H Blood Pressure Mean 123 Pulse Oximetry 97 Oxygen Delivery Method Room Air Sepsis Recent Fever Within 48 Hours No Sepsis New/Unexplained Change in Mental Status N/A Sepsis Action Taken by Nursing No Action Required Discharge Plan Visit Data Chief Complaint: Hip Pain Stated Complaint: HIP PAIN ED Provider: Sonny Merchant ED Midlevel Provider: Valerie Stahl Forms Stand Alone Forms: My [facility] Prescriptions Prescriptions: No Action losartan 50 mg tablet 50 mg PO QAM atorvastatin 40 mg tablet 40 mg PO QAM metformin 500 mg tablet extended release 24 hr 2,000 mg PO DAILY Jardiance 25 mg tablet 25 mg PO QAM Ozempic 1 mg/dose (4 mg/3 mL) pen injector 1 mg SUBCUT WK Referrals Referrals: Charles Gonzales MD [Primary Care Provider] -
[2024-07-12] MEDS: SODIUM CHLORIDE 0.9% 1,000 ML IV ONE (02:54)
[2024-07-12] MEDS: KETOROLAC TROMETHAMINE 15 MG/ML VIAL IV ONE (02:55)
[2024-07-12] MEDS: oxyCODONE HCL IR 5 MG TAB (IMMEDIATE RELEASE) PO STA (02:56)
[2024-07-12] MEDS: LIDOCAINE 5% 1 PATCH TD STA (03:17)
[2024-07-12] MEDS: OPTIRAY 320 100ml IV ONE (03:19)
[2024-07-12 03:27] LABS: Basophils # (auto) 0.06 K/uL (0.00-0.20); Basophils % (auto) 0.6 %; Eosinophils # (auto) 0.26 K/uL (0.00-0.50); Eosinophils % (auto) 2.4 %; Hematocrit (blood only) 44.7 % (42.0-52.0); Hemoglobin 14.8 g/dl (14.0-18.0); Immature Granulocytes # (auto) 0.03 K/uL (0.01-0.20); Immature Granulocytes % (auto) 0.3 %; Lymphocytes # (auto) 1.92 K/uL (1.20-3.40); Mean Corpuscular Hemoglobin 29.8 pg (25.0-34.0); Mean Corpuscular Hgb Conc 33.1 g/dL (32.0-36.0); Mean Corpuscular Volume 90.1 fL (80.0-100.0); Mean Platelet Volume 9.5 fL (9.4-12.4); Monocytes # (auto) 0.86 K/uL (0.11-0.59); Monocytes % (auto) 8.1 %; Neutrophils # (auto) 7.52 K/uL (1.40-6.50); Neutrophils % (auto) 70.6 %; Platelet Count 210 K/uL (130-400); RDW Coefficient of Variation 13.9 % (11.5-14.5); RDW Standard Deviation 45.5 fL (36.4-46.3); Red Blood Count 4.96 M/uL (4.70-6.10); White Blood Count 10.65 K/ul (4.8-10.8)
[2024-07-12 03:31] LABS: Albumin Level 4.3 gm/dl (3.4-5.0); BUN Creatinine Ratio 26.3 (10-20); Bilirubin,Total 0.4 mg/dl (0.2-1.0); Calcium 8.7 mg/dl (8.6-10.3); Creatinine Clr Calc Pharmacy 51.5 ml/min; Globulin 2.2 gm/dl (2.5-4.0); Potassium 4.2 mmol/L (3.5-5.1); Total Protein 6.5 gm/dl (6.0-8.3)
[2024-07-12] MEDS: MoRPHine SULFATE 4 MG/ML 1 ML CARP\\VIAL IV STA ×2 (03:37→04:30)
[2024-07-12 04:12] LABS: Appearance Urine Clear (Clear); Bacteria Urine Automated None Seen (None Seen); Bilirubin Urine Negative (Negative); Blood Urine Negative (Negative); Cast Urine Automated 0-2 /lpf (0-2); Color Urine Yellow; Epithelial Cell Urine Auto 0-2 /hpf (0-2); Glucose Urine UA 2+ (Negative); Ketones Urine Negative (Negative); Leukocyte Esterase Urine Negative (Negative); Nitrite Urine Negative (Negative); Protein Urine Trace (Negative); RBC Urine Automated 0-2 /hpf (0-2); Specific Gravity Urine 1.022 (1.000-1.030); Urobilinogen Urine Negative (Negative); WBC Urine Automated 0-5 /hpf (0-5)
--- NOTE | 2024-07-12 05:56 | CT Scan Report ---
EXAM: CT lumbar spine wo con CLINICAL HISTORY: recon TECHNIQUE: Multiple contiguous axial images were obtained through the lumbar spine without IV contrast. Sagittal and coronal reformatted images were obtained from the axial data. CT scan was performed according to ALARA (as low as reasonably achievable). COMPARISON: - FINDINGS: The normal lordotic curvature of the lumbar spine is maintained. Mild degenrative anterieor and lateral osteophytes seen. Lumbar vertebral bodies are maintained in height and alignment. No vertebral destructive changes are seen. T11-T12: Evaluated on sagittal images only. No disc bulge, canal stenosis or neuroforaminal narrowing. Subarticular recesses are patent. T12-L1: Evaluated on sagittal images only. No disc bulge, canal stenosis or neuroforaminal narrowing. Subarticular recesses are patent. L1-L2: No disc bulge, canal stenosis or neuroforaminal narrowing. Subarticular recesses are patent. L2-L3: No disc bulge, canal stenosis or neuroforaminal narrowing. Subarticular recesses are patent. L3-L4: Mild diffuse disc bulge causing indentation over the anterior thecal sac and not causinng any canal stenosis or neuroforaminal narrowing. Subarticular recesses are patent. L4-L5: No disc bulge, canal stenosis or neuroforaminal narrowing. Subarticular recesses are patent. L5-S1: No disc bulge, canal stenosis or neuroforaminal narrowing. Subarticular recesses are patent. Paravertebral soft tissues are unremarkable. IMPRESSION: 1. Mild lumbar spondylosis with diffuse disc bulge at L3-4 level. 2. No acute fractures. Electronically signed by Naga Stanton 07-12-2024 05:56 AM
--- NOTE | 2024-07-12 06:05 | CT Scan Report ---
EXAM: CT abd pelvis wo con CLINICAL HISTORY: CVA ttp, hip/back pain TECHNIQUE: Contiguous axial images were obtained from the level of the diaphragm to the pubic symphysis without intravenous or oral contrast. Coronal and sagittal reconstructions were likewise performed and indicated to increase the sensitivity for detecting clinically relevant pathology. CT scan was performed according to ALARA (as low as reasonably achievable). 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 Possibility of interstitial edema. Evaluation of the abdominal and pelvic visceral organs is limited without intravenous contrast. The unenhanced liver, spleen, pancreas, and adrenal glands are grossly unremarkable. The gallbladder is present. The kidneys are normal in size and attenuation without obvious calcification. There is no hydronephrosis. Bilateral mild perinephric fat stranding and pararenal fascial thickening. The ureters are normal in caliber. No adenopathy or fluid collections are seen. Few uncomplicated colonic diverticulosis. No evidence of focal or diffuse bowel wall thickening or evidence of bowel obstruction is seen. The aorta is normal in caliber. The urinary bladder is normal in contour. Pelvic viscera are grossly unremarkable. No aggressive appearing osseous lesions are identified. Previously visualized umbilcial hernia now shows a small hypodense collection of size 3.5 x 3.0cm with mild scarring of the umbilical soft tissue. Osteoarthritic changes are noted involving bilateral hip joints in the form of asymmetrical joint space reduction, subchondral cyst/sclerosis involving the femoral head and acetabulum, marginal osteophytes, severe on left side. Rest of the findings are unchanged compared to the previous CT scan. IMPRESSION: 1. Bilateral mild perinephric fat strnading and pararenal fascial thickening - this can be age ra;etd, however RFT and urine analysis correlation to rule out infection. 2. Few uncomplicated colonic diverticulosis. 3. Previously visualized umbilcial hernia now shows a small hypodense collection of size 3.5 x 3.0cm with suspicious inflammatory subcutaneous soft tissue. Collection is seen deep to the linea alba within the abdominal cavity. Possibility of omphalitis with a umbilical abscess. 5. Interlobular septal thickening is noted involving bilateral lung bases. Possibility of interstitial edema. 6. Osteoarthritic changes are noted involving bilateral hip joints, severe on left side. Electronically signed by Naga Stanton 07-12-2024 06:05 AM
[2024-07-12] MEDS: HYDROmorphone INJ 0.5 MG/0.5 ML SYR IV STA (06:20)
[2024-07-12] MEDS ORDERED: ACETAMINOPHEN 325 MG TAB PO PRN (06:25)
--- NOTE | 2024-07-12 06:34 | History & Physical Report ---
Date of Service July 12, 2024 Assessment & Plan (1) Asymptomatic hypertensive urgency: Plan: Secondary to left hip pain, severe osteoarthritis on imaging; NSAID Rx contributory History of hypertension Not currently on maintenance medications. Past history ARB Rx as per records Umbilical hernia abscess on imaging History hernia repair 2019 No sepsis for now ARF on CKD Recent NSAID Rx contributory Possible pulmonary congestion on imaging, patient denies SOB or fluid retention symptoms. hyperlipidemia, on statin Rx DM2 insulin requiring, suboptimal control as of last outpatient hemoglobin A1c of 8 from January 2024 OBS Admit to medical telemetry Initiate amlodipine for BP control Analgesia Patient counseled regarding adverse effects of NSAIDs on blood pressure control and kidney function. Monitor creatinine response to IV albumin given pulmonary congestion, Nephrology consult if without improvement Orthopedics consult Re: Left hip pain, severe OA imaging Zosyn for umbilical hernia abscess General Surgery consult Re: Umbilical hernia abscess, colitis on imaging N.p.o. in anticipation of procedure TTE re: pulmonary congestion on imaging rule out CHF Basal bolus insulin adjusted for n.p.o. status, ISS BG goal 110-140, update hemoglobin A1c DVT prophylaxis. SCDs re: possible procedure Full code Patient requesting updates providers. Ms. Renu Jett, contact #[phone]. Text document was generated using [employer] voice recognition software. It may contain grammatical or spelling errors. Kindly contact undersigned for clarification of any documentation item in question. History of Present Illness Chief Complaint: Left hip pain Primary Care Provider: Charles Gonzales MD History obtained from patient, family, and records. Medical history significant for hypertension, hyperlipidemia, DM2 insulin requiring, CRI (baseline creatinine 1.3) Last confinement 2018 under General Surgery service for incarcerated/strangulated umbilical hernia status post open repair. Unremarkable postop course. 5 days ago, patient noted worsening of chronic left hip pain. Some radiation to the groin. Achy pain worse on motion. Household work possibly preceding symptoms. No fever, no chills. Denies chest pain, SOB. Some hip pain radiation to the thigh. Patient consulted [facility] ER 4 days ago. CAT scan showed "bone and bone left hip problem and possible fluid collection around hernia" as per . Patient advised to follow-up with PCP for outpatient Orthopedics and General Surgery referrals. Patient prescribed naproxen on discharge from ER. Worsening discomfort overnight not relieved by home NSAID Rx.. No headache, no nausea, no vomiting. Patient brought to ER by for evaluation. SBP 180s upon arrival at the ER. 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 Allergies Allergy/AdvReac Type Severity Reaction Status Date / Time NSAIDS (Non-Steroidal AdvReac Intermediate renal Verified 07/12/24 08:11 Anti-Inflamma failure Home Medications Medication Instructions Recorded Confirmed Type atorvastatin 40 mg tablet 40 mg PO QAM 10/15/23 10/15/23 History empagliflozin 25 mg tablet 25 mg PO QAM 10/15/23 10/15/23 History (Jardiance) insulin aspart U-100 100 unit/mL 5 unit subcut TID 07/12/24 07/12/24 History (3 mL) subcutaneous pen (Novolog FlexPen U-100 Insulin aspart) insulin glargine 100 unit/mL (3 26 unit subcut HS 07/12/24 07/12/24 History mL) subcutaneous pen (Lantus Solostar U-100 Insulin) semaglutide 2 mg/dose (8 mg/3 mL) 2 mg subcut WK 07/12/24 07/12/24 History subcutaneous pen injector (Ozempic) Past Med/Surg History Problem List (Updated 07/12/24 @ 08:07 by Rony Mancuso MD) Asymptomatic hypertensive urgency Uncontrolled type II diabetes mellitus (Chronic) Medical History (Updated 07/12/24 @ 08:07 by Rony Mancuso MD) Umbilical hernia Surgical History (Updated 03/18/19 @ 20:23 by Nneka Thapa RN) H/O umbilical hernia repair Family History Other No pertinent family history in first degree relatives Social History Smoking Status: Never smoker Hx Alcohol Use: Yes Alcohol type: beer Hx Substance Use: No Preferred Language: Turkmen Installation Tech Required: No Beliefs That Will Affect Care: None Current Living Situation: Spouse Feels Safe at Home: Yes Assistive Devices: None Review of Systems Review of Systems: As per HPI, all other systems reviewed and negative Physical Exam Physical Exam: GENERAL: Comfortable, pleasant, dysphonic (chronic as per patient), no respiratory distress SKIN: Normal color, warm HEENT: [place] palpebral conjunctivae, no ptosis, dry buccal mucosa NECK : Supple, no tenderness CHEST : CTA, no tenderness HEART : RRR, no obvious murmurs ABDOMEN: Some distention, left groin tenderness BACK : Minimal low back tenderness, negative straight leg raise test EXTREMITIES : Left hip tenderness, no LE swelling, palpable pulses, no other conspicuous deformities noted NEUROLOGIC : Coherent, no facial asymmetry, no other gross focality Results & Data Results & Data Vital Signs (Past 12 Hours) Vital Signs Temp Pulse Pulse Resp BP BP Pulse Ox 07/12/24 06:00 76 14 165/86 H 95 07/12/24 05:30 78 14 150/85 H 93 07/12/24 05:00 78 17 148/85 H 94 07/12/24 04:58 81 07/12/24 04:35 80 16 153/87 H 92 07/12/24 04:35 80 20 153/87 H 95 07/12/24 04:21 83 20 186/99 H 97 07/12/24 03:30 69 17 118/65 98 07/12/24 03:21 92 H 21 178/93 H 92 07/12/24 02:11 36.6 C 90 18 185/93 H 97 O2 Del Method 07/12/24 06:00 07/12/24 05:30 07/12/24 05:00 07/12/24 04:58 07/12/24 04:35 07/12/24 04:35 07/12/24 04:21 07/12/24 03:30 Room Air 07/12/24 03:21 07/12/24 02:11 Room Air Laboratory Results Laboratory Results WBC 10.65 K/ul (4.8-10.8) 07/12/24 02:45 RBC 4.96 M/uL (4.70-6.10) 07/12/24 02:45 Hgb 14.8 g/dl (14.0-18.0) 07/12/24 02:45 Hct 44.7 % (42.0-52.0) 07/12/24 02:45 MCV 90.1 fL (80.0-100.0) 07/12/24 02:45 MCH 29.8 pg (25.0-34.0) 07/12/24 02:45 MCHC 33.1 g/dL (32.0-36.0) 07/12/24 02:45 RDW Std Deviation 45.5 fL (36.4-46.3) 07/12/24 02:45 RDW Coeff of Akhil 13.9 % (11.5-14.5) 07/12/24 02:45 Plt Count 210 K/uL (130-400) 07/12/24 02:45 MPV 9.5 fL (9.4-12.4) 07/12/24 02:45 Immature Gran % (Auto) 0.3 % 07/12/24 02:45 Neut % (Auto) 70.6 % 07/12/24 02:45 Lymph % (Auto) 18.0 % 07/12/24 02:45 [place] % (Auto) 8.1 % 07/12/24 02:45 Eos % (Auto) 2.4 % 07/12/24 02:45 Baso % (Auto) 0.6 % 07/12/24 02:45 Neut # (Auto) 7.52 K/uL (1.40-6.50) H 07/12/24 02:45 Lymph # (Auto) 1.92 K/uL (1.20-3.40) 07/12/24 02:45 [place] # (Auto) 0.86 K/uL (0.11-0.59) H 07/12/24 02:45 Eos # (Auto) 0.26 K/uL (0.00-0.50) 07/12/24 02:45 Baso # (Auto) 0.06 K/uL (0.00-0.20) 07/12/24 02:45 Immature Gran # (Auto) 0.03 K/uL (0.01-0.20) 07/12/24 02:45 Sodium 139 mmol/L (136-145) 07/12/24 02:45 Potassium 4.2 mmol/L (3.5-5.1) 07/12/24 02:45 Chloride 111 mmol/L (98-107) H 07/12/24 02:45 Carbon Dioxide 24 mmol/L (21-32) 07/12/24 02:45 Anion Gap 4 (3-11) 07/12/24 02:45 BUN 47 mg/dl (6-23) H 07/12/24 02:45 Creatinine 1.79 mg/dl (0.6-1.4) H 07/12/24 02:45 Est Cr Clr Drug Dosing 51.5 ml/min 07/12/24 02:45 eGFR 42.58 07/12/24 02:45 BUN/Creatinine Ratio 26.3 (10-20) H 07/12/24 02:45 Glucose 169 mg/dl (70-99(Fasting)) H 07/12/24 02:45 Calcium 8.7 mg/dl (8.6-10.3) 07/12/24 02:45 Total Bilirubin 0.4 mg/dl (0.2-1.0) 07/12/24 02:45 AST 22 U/L (13-39) 07/12/24 02:45 ALT 19 U/L (7-52) 07/12/24 02:45 Alkaline Phosphatase 116 U/L (34-104) H 07/12/24 02:45 Total Protein 6.5 gm/dl (6.0-8.3) 07/12/24 02:45 Albumin 4.3 gm/dl (3.4-5.0) 07/12/24 02:45 Globulin 2.2 gm/dl (2.5-4.0) L 07/12/24 02:45 Albumin/Globulin Ratio 2.0 (0.9-2) 07/12/24 02:45 Urine Color Yellow 07/12/24 Unknown Urine Appearance Clear (Clear) 07/12/24 Unknown Urine pH 6.0 (4.5-7.5) 07/12/24 Unknown Ur Specific [place] 1.022 (1.000-1.030) 07/12/24 Unknown Urine Protein Trace (Negative) H 07/12/24 Unknown Urine Glucose (UA) 2+ (Negative) H 07/12/24 Unknown Urine Ketones Negative (Negative) 07/12/24 Unknown Urine Blood Negative (Negative) 07/12/24 Unknown Urine Nitrite Negative (Negative) 07/12/24 Unknown Urine Bilirubin Negative (Negative) 07/12/24 Unknown Urine Urobilinogen Negative (Negative) 07/12/24 Unknown Ur Leukocyte Esterase Negative (Negative) 07/12/24 Unknown Urine WBC (Auto) 0-5 /hpf (0-5) 07/12/24 Unknown Urine RBC (Auto) 0-2 /hpf (0-2) 07/12/24 Unknown U Hyaline Cast (Auto) 0-2 /lpf (0-2) 07/12/24 Unknown U Epithel Cells (Auto) 0-2 /hpf (0-2) 07/12/24 Unknown Urine Bacteria (Auto) None Seen (None Seen) 07/12/24 Unknown Impressions Lumbar Spine CT 07/12/24 02:48 EXAM: CT lumbar spine wo con CLINICAL HISTORY: recon TECHNIQUE: Multiple contiguous axial images were obtained through the lumbar spine without IV contrast. Sagittal and coronal reformatted images were obtained from the axial data. CT scan was performed according to ALARA (as low as reasonably achievable). COMPARISON: - FINDINGS: The normal lordotic curvature of the lumbar spine is maintained. Mild degenrative anterieor and lateral osteophytes seen. Lumbar vertebral bodies are maintained in height and alignment. No vertebral destructive changes are seen. T11-T12: Evaluated on sagittal images only. No disc bulge, canal stenosis or neuroforaminal narrowing. Subarticular recesses are patent. T12-L1: Evaluated on sagittal images only. No disc bulge, canal stenosis or neuroforaminal narrowing. Subarticular recesses are patent. L1-L2: No disc bulge, canal stenosis or neuroforaminal narrowing. Subarticular recesses are patent. L2-L3: No disc bulge, canal stenosis or neuroforaminal narrowing. Subarticular recesses are patent. L3-L4: Mild diffuse disc bulge causing indentation over the anterior thecal sac and not causinng any canal stenosis or neuroforaminal narrowing. Subarticular recesses are patent. L4-L5: No disc bulge, canal stenosis or neuroforaminal narrowing. Subarticular recesses are patent. L5-S1: No disc bulge, canal stenosis or neuroforaminal narrowing. Subarticular recesses are patent. Paravertebral soft tissues are unremarkable. IMPRESSION: 1. Mild lumbar spondylosis with diffuse disc bulge at L3-4 level. 2. No acute fractures. Electronically signed by Naga Stanton 07-12-2024 05:56 AM Abdomen/Pelvis CT 07/12/24 03:34 EXAM: CT abd pelvis wo con CLINICAL HISTORY: CVA ttp, hip/back pain TECHNIQUE: Contiguous axial images were obtained from the level of the diaphragm to the pubic symphysis without intravenous or oral contrast. Coronal and sagittal reconstructions were likewise performed and indicated to increase the sensitivity for detecting clinically relevant pathology. CT scan was performed according to ALARA (as low as reasonably achievable). 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 Possibility of interstitial edema. Evaluation of the abdominal and pelvic visceral organs is limited without intravenous contrast. The unenhanced liver, spleen, pancreas, and adrenal glands are grossly unremarkable. The gallbladder is present. The kidneys are normal in size and attenuation without obvious calcification. There is no hydronephrosis. Bilateral mild perinephric fat stranding and pararenal fascial thickening. The ureters are normal in caliber. No adenopathy or fluid collections are seen. Few uncomplicated colonic diverticulosis. No evidence of focal or diffuse bowel wall thickening or evidence of bowel obstruction is seen. The aorta is normal in caliber. The urinary bladder is normal in contour. Pelvic viscera are grossly unremarkable. No aggressive appearing osseous lesions are identified. Previously visualized umbilcial hernia now shows a small hypodense collection of size 3.5 x 3.0cm with mild scarring of the umbilical soft tissue. Osteoarthritic changes are noted involving bilateral hip joints in the form of asymmetrical joint space reduction, subchondral cyst/sclerosis involving the femoral head and acetabulum, marginal osteophytes, severe on left side. Rest of the findings are unchanged compared to the previous CT scan. IMPRESSION: 1. Bilateral mild perinephric fat strnading and pararenal fascial thickening - this can be age ra;etd, however RFT and urine analysis correlation to rule out infection. 2. Few uncomplicated colonic diverticulosis. 3. Previously visualized umbilcial hernia now shows a small hypodense collection of size 3.5 x 3.0cm with suspicious inflammatory subcutaneous soft tissue. Collection is seen deep to the linea alba within the abdominal cavity. Possibility of omphalitis with a umbilical abscess. 5. Interlobular septal thickening is noted involving bilateral lung bases. Possibility of interstitial edema. 6. Osteoarthritic changes are noted involving bilateral hip joints, severe on left side. Electronically signed by Naga Stanton 07-12-2024 06:05 AM Diagnostic Findings Chest x-ray as per my interpretation minimal congestion EKG as per my interpretation : rate 80, NSR, normal axis, no ischemia
[2024-07-12] MEDS: PIPERACILLIN/TAZOBACTAM 4.5 GM/100 ML BAG IV ONE (07:33)
[2024-07-12] MEDS ORDERED: PROMETHAZINE 6.25 MG/50.25 ML BAG IV PRN (07:37)
[2024-07-12] MEDS ORDERED: LORazepam 0.5 MG TAB PO PRN (07:37)
--- NOTE | 2024-07-12 07:58 | XRay Report ---
EXAM: XR chest 1V portable CLINICAL HISTORY: renal failure TECHNIQUE: An X-ray image of the chest is obtained in AP projection. COMPARISON: with the prior CTA 10/15/2023. FINDINGS: Pulmonary Parenchyma: Mild bilateral hilar vascuarl congestion noted . No evidence of consolidation, collapse, or focal opacities. No pulmonary nodules are identified. No evidence of pleural effusion or pleural thickening. Heart and Mediastinum: Heart size and shape are normal. No mediastinal widening or masses. No hilar or mediastinal lymphadenopathy. Bony Thorax: Bony thorax appears intact without fractures or deformities. Soft Tissues: Soft tissues overlying the chest wall are unremarkable. IMPRESSION: 1. Mild bilateral hilar vascuarl congestion noted . 2. No interval change since the prior study. Electronically signed by J Carlos Wilde 07-12-2024 07:57 AM
[2024-07-12] MEDS ORDERED: DEXTROSE 50% 50 ML SYRINGE IV PRN (08:53)
[2024-07-12] MEDS ORDERED: GLUCAGON FOR INJ 1 MG VIAL SQ PRN (08:53)
[2024-07-12] MEDS ORDERED: GLUCOSE 10 TAB/TUBE PO PRN (08:53)
[2024-07-12] MEDS ORDERED: GLUCOSE 40% GEL 15 GM TUBE PO PRN (08:53)
[2024-07-12] MEDS ORDERED: CARBOHYDRATES FOR HYPOGLYCEMIA PO PRN (08:53)
[2024-07-12] MEDS: INSULIN ASPART PER UNIT CHARGE SC SCH (09:19)
[2024-07-12] MEDS: HYDROmorphone INJ 0.5 MG/0.5 ML SYR IV PRN (09:53)
[2024-07-12] MEDS: amLODIPine BESYLATE 5 MG TAB PO SCH (09:53)
[2024-07-12] MEDS: ALBUMIN 25% 25 GM/100 ML VIAL IV ONE (09:59)
--- NOTE | 2024-07-12 10:54 | XRay Report ---
XR hip LT 2V w pelvis HISTORY: 63 years-old Male left hip pain chronic left hip pain COMPARISON: CT abdomen and pelvis 07/12/2024 TECHNIQUE: AP view of the pelvis with 2 views of the left hip FINDINGS: Moderate to severe right with severe left hip osteoarthritis. No acute fracture, dislocation or suspi cious bone lesion. No avascular necrosis. Subcentimeter loose bodies within the left hip. IMPRESSION: 1. No acute fracture or dislocation. 2. Moderate to severe right with severe left hip osteoarthritis. ACT 112: Negative or not required by law. The above report was generated using voice recognition software. It may contain grammatical, syntax o r spelling errors. Electronically signed by: Huang Crump M.D. 07/12/2024 10:53 AM
--- NOTE | 2024-07-12 10:58 | Orthopedic Consultation ---
Date of Consultation July 12, 2024 Assessment & Plan (1) Primary localized osteoarthritis of left hip: Patient has moderate to severe osteoarthritis of his left hip. This has been ongoing and chronic for the last few years. Sounds like is progressively worsening. It is common to get exacerbations that he is describing with arthritis. He would benefit from a total hip arthroplasty although this is not typically done on an urgent basis. His anterior thigh pain bilaterally typically is not consistent or referred from the left hip. It could cause some pain down the left thigh but would not cause referred pain into the right thigh. This may have something to do with his diffuse disc bulge of L3-L4 that was found on the CT of the pelvis. He can be out of bed, weight-bear as tolerated. Would recommend a cane in the right hand or walker assistance. He can do activities as tolerated. Recommend physical therapy and Occupational Therapy while in house. He may benefit from oral prednisone if okay from hospitalist and surgery due to the fluid around his recent hernia repair. Once oral pre dnisone taper completed he can continue naproxen 500 mg p.o. twice daily with intermittent Tylenol to control his pain. He could also consider an intra- articular corticosteroid injection of the left hip under fluoroscopic guidance but this would postpone any kind of surgical intervention for at least 3 months and may not be very beneficial. If he would like to proceed with this he will let us know. He states that he was told to get some physical therapy by his [facility] physician and that he would need an MRI of his left hip. There is no indication for an MRI at this time and physical therapy may actually worsen things rather than improve them. Would recommend follow-up with Dr. Guerra in a few weeks to discuss total hip arthroplasty. If his anterior thigh pain continues to worsen would recommend spine consultation or pain management for treatment options. Patient understands and agrees with the plan. Dr. Guerra present for today's visit. Supervising Physician Co-Signing Physician Notes I saw and examined the patient, formulated the plan and performed the substantive portion of the visit. Agree with above note History of Present Illness Reason for Consultation: acute left hip pain Attending Physician: Austin Martinez MD History of Present Illness Patient is a pleasant 63-year-old male who presented to the emergency room with complaints of left hip pain. He states that his left hip has been bothersome on and off for the last 4 years. He denies any known injury. Over the last 4 years he has noticed diminished range of motion especially when he lifts his leg to put a sock on. Typically gets some mild soreness in the left hip which is controlled with [id number] Tylenol or Advil. Last weekend he was out doing a lot of yard work, picking up sticks. Saturday he states he woke up with a lot of pain in the left hip and groin. He had pain that actually radiated down both of his thighs. It did not go below his knees. He went to the [facility] emergency room and was told that he has hip arthritis. He was given some naproxen. He also saw his family physician and was ordered physical therapy. He states he was pretty good Saturday and Saturday with the naproxen but then this morning woke up with intractable left hip pain. He states it has very severe and does not allow him to do anything. He has more pain with sitting or lying flat versus walking. He denies any numbness or tingling down either leg. He does have diabetes and was wondering if this is neuropathy. Denies any known injury. With the anterior thigh pain the left is worse than the right. Denies any back discomfort today. Denies any known back issues. Allergies Allergy/AdvReac Type Severity Reaction Status Date / Time NSAIDS (Non-Steroidal AdvReac Intermediate renal Verified 07/12/24 08:11 Anti-Inflamma failure Home Medications Medication Instructions Recorded Confirmed Type atorvastatin 40 mg tablet 40 mg PO QAM 10/15/23 10/15/23 History empagliflozin 25 mg tablet 25 mg PO QAM 10/15/23 10/15/23 History (Jardiance) insulin aspart U-100 100 unit/mL 5 unit subcut TID 07/12/24 07/12/24 History (3 mL) subcutaneous pen (Novolog FlexPen U-100 Insulin aspart) insulin glargine 100 unit/mL (3 26 unit subcut HS 07/12/24 07/12/24 History mL) subcutaneous pen (Lantus Solostar U-100 Insulin) semaglutide 2 mg/dose (8 mg/3 mL) 2 mg subcut WK 07/12/24 07/12/24 History subcutaneous pen injector (Ozempic) Patient History Medical History (Updated 07/12/24 @ 12:42 by Rosalio Nunez DO) Umbilical hernia Surgical History (Updated 03/18/19 @ 20:23 by Nneka Thapa RN) H/O umbilical hernia repair Family History Other No pertinent family history in first degree relatives Social History Smoking Status: Never smoker Hx Alcohol Use: No Hx Substance Use: No Preferred Language: Hebrew Communication Ability: Effective 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 Guerra present for today's visit and performed the exam. Skin is intact of his left and right hip and lumbar spine area. He has 2+ dorsalis pedis and posterior tibial pulses. He has 1+ Achilles and patellar tendon reflexes bilaterally. He has a positive straight leg raise on the left. Negative Stinchfield's bilaterally. He has no pain with increased abdominal pressure. Negative femoral nerve stretch test. He has point tenderness palpation over the L3 region of the lumbar spine. He is nontender over the right or left SI joints. Nontender over the sacrum. Range of motion of his left hip is flexion to 90 degrees, external rotation to 35 degrees, internal rotation to -20. He has a positive Nhung's maneuver. No weakness to bilateral lower extremities. Sensation intact and normal. Results & Data Vital Signs (Past 12 Hours) Vital Signs Temp Pulse Pulse Resp BP BP Pulse Ox 07/12/24 10:00 81 12 07/12/24 10:00 155/84 H 07/12/24 09:06 80 10 L 07/12/24 09:00 151/95 H 07/12/24 08:54 99 07/12/24 08:30 158/92 H 07/12/24 08:30 80 11 L 92 07/12/24 06:00 76 14 165/86 H 95 07/12/24 05:30 78 14 150/85 H 93 07/12/24 05:00 78 17 148/85 H 94 07/12/24 04:58 81 07/12/24 04:35 80 16 153/87 H 92 07/12/24 04:35 80 20 153/87 H 95 07/12/24 04:21 83 20 186/99 H 97 07/12/24 03:30 69 17 118/65 98 07/12/24 03:21 92 H 21 178/93 H 92 07/12/24 02:11 36.6 C 90 18 185/93 H 97 O2 Del Method 07/12/24 10:00 07/12/24 10:00 07/12/24 09:06 07/12/24 09:00 07/12/24 08:54 07/12/24 08:30 07/12/24 08:30 07/12/24 06:00 07/12/24 05:30 07/12/24 05:00 07/12/24 04:58 07/12/24 04:35 07/12/24 04:35 07/12/24 04:21 07/12/24 03:30 Room Air 07/12/24 03:21 07/12/24 02:11 Room Air Laboratory Results 07/12/24 07/12/24 07/12/24 Unknown 09:15 02:45 WBC 10.65 RBC 4.96 Hgb 14.8 Hct 44.7 MCV 90.1 MCH 29.8 MCHC 33.1 RDW Std Deviation 45.5 RDW Coeff of Akhil 13.9 Plt Count 210 MPV 9.5 Immature Gran % (Auto) 0.3 Neut % (Auto) 70.6 Lymph % (Auto) 18.0 [place] % (Auto) 8.1 Eos % (Auto) 2.4 Baso % (Auto) 0.6 Neut # (Auto) 7.52 H Lymph # (Auto) 1.92 [place] # (Auto) 0.86 H Eos # (Auto) 0.26 Baso # (Auto) 0.06 Immature Gran # (Auto) 0.03 Sodium 139 Potassium 4.2 Chloride 111 H Carbon Dioxide 24 Anion Gap 4 BUN 47 H Creatinine 1.79 H Est Cr Clr Drug Dosing 51.5 eGFR 42.58 BUN/Creatinine Ratio 26.3 H Glucose 169 H POC Glucose 112 H Calcium 8.7 Total Bilirubin 0.4 AST 22 ALT 19 Alkaline Phosphatase 116 H Total Protein 6.5 Albumin 4.3 Globulin 2.2 L Albumin/Globulin Ratio 2.0 Urine Color Yellow Urine Appearance Clear Urine pH 6.0 Ur Specific [place] 1.022 Urine Protein Trace H Urine Glucose (UA) 2+ H Urine Ketones Negative Urine Blood Negative Urine Nitrite Negative Urine Bilirubin Negative Urine Urobilinogen Negative Ur Leukocyte Esterase Negative Urine WBC (Auto) 0-5 Urine RBC (Auto) 0-2 U Hyaline Cast (Auto) 0-2 U Epithel Cells (Auto) 0-2 Urine Bacteria (Auto) None Seen Diagnostic Findings Lumbar Spine CT 07/12/24 02:48 EXAM: CT lumbar spine wo con CLINICAL HISTORY: recon TECHNIQUE: Multiple contiguous axial images were obtained through the lumbar spine without IV contrast. Sagittal and coronal reformatted images were obtained from the axial data. CT scan was performed according to ALARA (as low as reasonably achievable). COMPARISON: - FINDINGS: The normal lordotic curvature of the lumbar spine is maintained. Mild degenrative anterieor and lateral osteophytes seen. Lumbar vertebral bodies are maintained in height and alignment. No vertebral destructive changes are seen. T11-T12: Evaluated on sagittal images only. No disc bulge, canal stenosis or neuroforaminal narrowing. Subarticular recesses are patent. T12-L1: Evaluated on sagittal images only. No disc bulge, canal stenosis or neuroforaminal narrowing. Subarticular recesses are patent. L1-L2: No disc bulge, canal stenosis or neuroforaminal narrowing. Subarticular recesses are patent. L2-L3: No disc bulge, canal stenosis or neuroforaminal narrowing. Subarticular recesses are patent. L3-L4: Mild diffuse disc bulge causing indentation over the anterior thecal sac and not causinng any canal stenosis or neuroforaminal narrowing. Subarticular recesses are patent. L4-L5: No disc bulge, canal stenosis or neuroforaminal narrowing. Subarticular recesses are patent. L5-S1: No disc bulge, canal stenosis or neuroforaminal narrowing. Subarticular recesses are patent. Paravertebral soft tissues are unremarkable. IMPRESSION: 1. Mild lumbar spondylosis with diffuse disc bulge at L3-4 level. 2. No acute fractures. Electronically signed by Naga Stanton 07-12-2024 05:56 AM Abdomen/Pelvis CT 07/12/24 03:34 EXAM: CT abd pelvis wo con CLINICAL HISTORY: CVA ttp, hip/back pain TECHNIQUE: Contiguous axial images were obtained from the level of the diaphragm to the pubic symphysis without intravenous or oral contrast. Coronal and sagittal reconstructions were likewise performed and indicated to increase the sensitivity for detecting clinically relevant pathology. CT scan was performed according to ALARA (as low as reasonably achievable). COMPARISON: 03/18/2019 13:33:17 TRAINING ENGINEER FINDINGS: Interlobular septal thickening is noted involving bilateral lung bases. Possibility of interstitial edema. Evaluation of the abdominal and pelvic visceral organs is limited without intravenous contrast. The unenhanced liver, spleen, pancreas, and adrenal glands are grossly unremarkable. The gallbladder is present. The kidneys are normal in size and attenuation without obvious calcification. There is no hydronephrosis. Bilateral mild perinephric fat stranding and pararenal fascial thickening. The ureters are normal in caliber. No adenopathy or fluid collections are seen. Few uncomplicated colonic diverticulosis. No evidence of focal or diffuse bowel wall thickening or evidence of bowel obstruction is seen. The aorta is normal in caliber. The urinary bladder is normal in contour. Pelvic viscera are grossly unremarkable. No aggressive appearing osseous lesions are identified. Previously visualized umbilcial hernia now shows a small hypodense collection of size 3.5 x 3.0cm with mild scarring of the umbilical soft tissue. Osteoarthritic changes are noted involving bilateral hip joints in the form of asymmetrical joint space reduction, subchondral cyst/sclerosis involving the femoral head and acetabulum, marginal osteophytes, severe on left side. Rest of the findings are unchanged compared to the previous CT scan. IMPRESSION: 1. Bilateral mild perinephric fat strnading and pararenal fascial thickening - this can be age ra;etd, however RFT and urine analysis correlation to rule out infection. 2. Few uncomplicated colonic diverticulosis. 3. Previously visualized umbilcial hernia now shows a small hypodense collection of size 3.5 x 3.0cm with suspicious inflammatory subcutaneous soft tissue. Collection is seen deep to the linea alba within the abdominal cavity. Possibility of omphalitis with a umbilical abscess. 5. Interlobular septal thickening is noted involving bilateral lung bases. Possibility of interstitial edema. 6. Osteoarthritic changes are noted involving bilateral hip joints, severe on left side. Electronically signed by Naga Stanton 07-12-2024 06:05 AM Chest X-Ray 07/12/24 06:18 EXAM: XR chest 1V portable CLINICAL HISTORY: renal failure TECHNIQUE: An X-ray image of the chest is obtained in AP projection. COMPARISON: with the prior CTA 10/15/2023. FINDINGS: Pulmonary Parenchyma: Mild bilateral hilar vascuarl congestion noted . No evidence of consolidation, collapse, or focal opacities. No pulmonary nodules are identified. No evidence of pleural effusion or pleural thickening. Heart and Mediastinum: Heart size and shape are normal. No mediastinal widening or masses. No hilar or mediastinal lymphadenopathy. Bony Thorax: Bony thorax appears intact without fractures or deformities. Soft Tissues: Soft tissues overlying the chest wall are unremarkable. IMPRESSION: 1. Mild bilateral hilar vascuarl congestion noted . 2. No interval change since the prior study. Electronically signed by J Carlos Wilde 07-12-2024 07:57 AM Hip/Pelvis X-Ray 07/12/24 09:53 XR hip LT 2V w pelvis HISTORY: 63 years-old Male left hip pain chronic left hip pain COMPARISON: CT abdomen and pelvis 07/12/2024 TECHNIQUE: AP view of the pelvis with 2 views of the left hip FINDINGS: Moderate to severe right with severe left hip osteoarthritis. No acute fracture, dislocation or suspicious bone lesion. No avascular necrosis. Subcentimeter loose bodies within the left hip. IMPRESSION: 1. No acute fracture or dislocation. 2. Moderate to severe right with severe left hip osteoarthritis. ACT 112: Negative or not required by law. The above report was generated using voice recognition software. It may contain grammatical, syntax or spelling errors. Electronically signed by: Huang Crump M.D. 07/12/2024 10:53 AM
--- NOTE | 2024-07-12 12:22 | Electrocardiogram Report ---
Test Reason : Blood Pressure : */* mmHG Vent. Rate : 81 BPM Atrial Rate : 81 BPM P-R Int : 196 ms QRS Dur : 86 ms QT Int : 388 ms P-R-T Axes : 35 6 54 degrees QTcB Int : 450 ms Normal sinus rhythm Normal ECG When compared with ECG of 15-Oct-2023 18:19, No significant change was found Confirmed by Bret Barry ([id number]) on 07/12/2024 12:22:32 PM Referred By: REFERRED SELF Confirmed By: Bret Barry
[2024-07-12] MEDS: oxyCODONE HCL IR 5 MG TAB (IMMEDIATE RELEASE) PO PRN (12:37)
[2024-07-12] MEDS: PIPERACILLIN/TAZOBACTAM 4.5 GM/100 ML BAG IV SCH (12:39)
--- NOTE | 2024-07-12 12:43 | Surgery Consultation ---
Date of Consultation July 12, 2024 Assessment & Plan (1) Abnormal computerized tomography of abdominal wall: Clinically there are no issues. I gave him signs and symptoms to watch for and reasons he should call me. No indications for further testing or surgical intervention. History of Present Illness Attending Physician: Austin Martinez MD History of Present Illness Requested to see patient regarding an umbilical abnormality seen on CT scan. Patient is here primarily for severe left hip pain. During workup there were noted to be a potential fluid collection/developing abscess at his umbilicus. Patient states he had an umbilical hernia repaired here in 2019. States he has no symptoms and no concerns ever since then. Allergies Allergy/AdvReac Type Severity Reaction Status Date / Time NSAIDS (Non-Steroidal AdvReac Intermediate renal Verified 07/12/24 08:11 Anti-Inflamma failure Home Medications Medication Instructions Recorded Confirmed Type atorvastatin 40 mg tablet 40 mg PO QAM 10/15/23 10/15/23 History empagliflozin 25 mg tablet 25 mg PO QAM 10/15/23 10/15/23 History (Jardiance) insulin aspart U-100 100 unit/mL 5 unit subcut TID 07/12/24 07/12/24 History (3 mL) subcutaneous pen (Novolog FlexPen U-100 Insulin aspart) insulin glargine 100 unit/mL (3 26 unit subcut HS 07/12/24 07/12/24 History mL) subcutaneous pen (Lantus Solostar U-100 Insulin) semaglutide 2 mg/dose (8 mg/3 mL) 2 mg subcut WK 07/12/24 07/12/24 History subcutaneous pen injector (Ozempic) Patient History Medical History (Updated 07/12/24 @ 12:42 by Rosalio Nunez DO) Umbilical hernia Surgical History (Updated 03/18/19 @ 20:23 by Nneka Thapa RN) H/O umbilical hernia repair Family History Other No pertinent family history in first degree relatives Social History Smoking Status: Never smoker Hx Alcohol Use: Yes Alcohol type: beer Hx Substance Use: No Preferred Language: Upper 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 Umbilical region looks completely normal. There is no fluctuance or erythema. There is no tenderness and hernia repair feels solid Skin: no rashes, warm and dry Psychiatric: Orientation: alert, oriented x 3 and cooperative Results & Data Vital Signs (Past 12 Hours) Vital Signs Temp Pulse Pulse Pulse Resp BP BP 07/12/24 11:40 36.4 C L 82 16 152/81 H 07/12/24 10:00 81 12 07/12/24 10:00 155/84 H 07/12/24 09:06 80 10 L 07/12/24 09:00 151/95 H 07/12/24 08:54 07/12/24 08:30 158/92 H 07/12/24 08:30 80 11 L 07/12/24 06:00 76 14 165/86 H 07/12/24 05:30 78 14 150/85 H 07/12/24 05:00 78 17 148/85 H 07/12/24 04:58 81 07/12/24 04:35 80 16 153/87 H 07/12/24 04:35 80 20 153/87 H 07/12/24 04:21 83 20 186/99 H 07/12/24 03:30 69 17 118/65 07/12/24 03:21 92 H 21 178/93 H 07/12/24 02:11 36.6 C 90 18 185/93 H Pulse Ox O2 Del Method 07/12/24 11:40 97 Room Air 07/12/24 10:00 07/12/24 10:00 07/12/24 09:06 07/12/24 09:00 07/12/24 08:54 99 07/12/24 08:30 07/12/24 08:30 92 07/12/24 06:00 95 07/12/24 05:30 93 07/12/24 05:00 94 07/12/24 04:58 07/12/24 04:35 92 07/12/24 04:35 95 07/12/24 04:21 97 07/12/24 03:30 98 Room Air 07/12/24 03:21 92 07/12/24 02:11 97 Room Air PG Care Time/CCT Total # of Minutes Spent Total Time Spent with Patient: Total time spent is greater than 50% in coordination of care (as documented) at patient's floor/unit and/or counseling patient: Coding Level of Care Code 98065 IN/OBS CONSULT LVL 2,35M Diagnoses Abnormal computerized tomography of abdominal wall R93.5
[2024-07-12 13:03] LABS: Estimated Average Glucose 174 mg/dl; Hemoglobin A1C 7.7 % (4.5-5.6)
[2024-07-12] MEDS ORDERED: FAMOTIDINE 10 MG TABLET PO PRN (13:30)
[2024-07-12] MEDS ORDERED: methylPREDNISolone 4 MG TAB, 6 DAY TAPER PO SCH (13:30)
--- NOTE | 2024-07-12 14:10 | Hospitalist Progress Note ---
Date of Service July 12, 2024 Assessment & Plan (1) Asymptomatic hypertensive urgency: Plan: Left hip osteoarthritis Ambulatory dysfunction Lumbar disc disease --Lumbar CT:Mild lumbar spondylosis with diffuse disc bulge at L3-4 level.. No acute fractures. --Hip X mathew:No acute fracture or dislocation. Moderate to severe right with severe left hip osteoarthritis. -- Weightbearing as tolerated Started on Medrol Dosepak Consider intra-articular corticosteroid injection Appreciate orthopedics input PT OT as able Abnormal CT abdomen H/O Incarcerated/strangulated umbilical hernia S/P surgery in 2019 --CT ABD:Previously visualized umbilcial hernia now shows a small hypodense collection of size 3.5 x 3.0cm with suspicious inflammatory subcutaneous soft tissue. Collection is seen deep to the linea alba within the abdominal cavity. Possibility of omphalitis with a umbilical abscess. -- Patient asymptomatic - Appreciate surgery input: No further testing needed currently -Empirically on Zosyn -Will consider to discontinue antibiotics as able if patient's remains asymptomatic Tolerating diet Acute kidney injury on CKD II Likely due to NSAIDs use Continue gentle IV fluids Avoid nephrotoxic agents as able Monitor renal function Avoid NSAIDs DM II Last HbA1c 8.0 Continue insulin while hospitalized Monitor blood glucose levels Hyperlipidemia Continue atorvastatin Hypertension Previously on ARB Blood pressure elevated likely secondary to pain Started on low-dose amlodipine Monitor and adjust medications as needed DVT Px: Heparin SQ Code Status Full code Disposition PT OT prior to discharge Admission and Anticipated Discharge Date Admission Date: July 12, 2024 Subjective Patient is seen and examined at bedside States having bilateral hip pain Denies any abdominal pain at umbilical site Also denies any chest pain, dyspnea, nausea, vomiting, dizziness Family at bedside Discussed with surgery today Review of Systems Review of Systems: All systems reviewed & are unremarkable except as noted in Subjective Physical Exam Physical Exam: Physical Exam: Vitals signs as noted above General Appearance:Moderately built and nourished, no apparent distress Head: normocephalic, Atraumatic Eyes: normal inspection, EOMI Neck: supple, Trachea midline Respiratory/Chest: Normal breath sounds, CTA, No accessory muscle use Cardiovascular: S1, S2, No murmur Abdomen/GI:Soft, Non tender, Bowel sounds present Extremities/Musculoskeletal:normal inspection, no edema,+ L straight leg raise, Mildly decreased ROM Neurologic/Psych:AAOX3, grossly no focal neurological deficits Skin: normal color, warm Results & Data Results & Data Vital Signs (Past 12 Hours) Vital Signs Temp Pulse Pulse Pulse Resp BP BP 07/12/24 11:40 36.4 C L 82 16 152/81 H 07/12/24 10:00 81 12 07/12/24 10:00 155/84 H 07/12/24 09:06 80 10 L 07/12/24 09:00 151/95 H 07/12/24 08:54 07/12/24 08:30 158/92 H 07/12/24 08:30 80 11 L 07/12/24 06:00 76 14 165/86 H 07/12/24 05:30 78 14 150/85 H 07/12/24 05:00 78 17 148/85 H 07/12/24 04:58 81 07/12/24 04:35 80 16 153/87 H 07/12/24 04:35 80 20 153/87 H 07/12/24 04:21 83 20 186/99 H 07/12/24 03:30 69 17 118/65 07/12/24 03:21 92 H 21 178/93 H 07/12/24 02:11 36.6 C 90 18 185/93 H Pulse Ox O2 Del Method 07/12/24 11:40 97 Room Air 07/12/24 10:00 07/12/24 10:00 07/12/24 09:06 07/12/24 09:00 07/12/24 08:54 99 07/12/24 08:30 07/12/24 08:30 92 07/12/24 06:00 95 07/12/24 05:30 93 07/12/24 05:00 94 07/12/24 04:58 07/12/24 04:35 92 07/12/24 04:35 95 07/12/24 04:21 97 07/12/24 03:30 98 Room Air 07/12/24 03:21 92 07/12/24 02:11 97 Room Air Laboratory Results Short CBC 07/12/24 Range/Units 02:45 WBC 10.65 (4.8-10.8) K/ul Hgb 14.8 (14.0-18.0) g/dl Hct 44.7 (42.0-52.0) % Plt Count 210 (130-400) K/uL BMP 07/12/24 02:45 Sodium 139 Potassium 4.2 Chloride 111 H Carbon Dioxide 24 BUN 47 H Creatinine 1.79 H Glucose 169 H Calcium 8.7 Liver Function 07/12/24 Range/Units 02:45 Total Bilirubin 0.4 (0.2-1.0) mg/dl AST 22 (13-39) U/L ALT 19 (7-52) U/L Alkaline Phosphatase 116 H (34-104) U/L Albumin 4.3 (3.4-5.0) gm/dl Urine 07/12/24 Range/Units Unknown Urine Color Yellow Urine Appearance Clear (Clear) Urine pH 6.0 (4.5-7.5) Ur Specific [place] 1.022 (1.000-1.030) Urine Protein Trace H (Negative) Urine Glucose (UA) 2+ H (Negative)
[2024-07-12] MEDS: methylPREDNISolone 4 MG TAB PO SCH ×2 (17:12)
[2024-07-12] MEDS: ATORVASTATIN 40 MG TAB PO SCH (17:17)
[2024-07-12] MEDS: LACTATED RINGER'S 1,000 ML IV SCH (17:17)
[2024-07-12] MEDS ORDERED: LANTUS PER UNIT CHARGE SQ SCH (21:00)
[2024-07-12] MEDS: LANTUS PER UNIT CHARGE SQ SCH (21:51)
[2024-07-12] MEDS: HEPARIN SOD 5,000 UNIT/0.5 ML VIAL SQ SCH (21:51)
[2024-07-12 23:32] VITALS: TEMP 98.1
[2024-07-12] MEDS: amLODIPine BESYLATE 5 MG TAB PO ONE (23:49)
[2024-07-13 08:03] VITALS: RESP 18
[2024-07-13 08:16] LABS: Basophils # (auto) 0.02 K/uL (0.00-0.20); Basophils % (auto) 0.2 %; Eosinophils # (auto) 0.01 K/uL (0.00-0.50); Eosinophils % (auto) 0.1 %; Hematocrit (blood only) 43.9 % (42.0-52.0); Hemoglobin 14.6 g/dl (14.0-18.0); Immature Granulocytes # (auto) 0.02 K/uL (0.01-0.20); Immature Granulocytes % (auto) 0.2 %; Lymphocytes # (auto) 0.65 K/uL (1.20-3.40); Lymphocytes % (auto) 7.2 %; Mean Corpuscular Hemoglobin 30.1 pg (25.0-34.0); Mean Corpuscular Hgb Conc 33.3 g/dL (32.0-36.0); Mean Corpuscular Volume 90.5 fL (80.0-100.0); Mean Platelet Volume 9.2 fL (9.4-12.4); Monocytes % (auto) 3.3 %; Platelet Count 202 K/uL (130-400); RDW Coefficient of Variation 13.7 % (11.5-14.5); RDW Standard Deviation 45.7 fL (36.4-46.3); Red Blood Count 4.85 M/uL (4.70-6.10)
[2024-07-13 08:33] LABS: BUN Creatinine Ratio 18.8 (10-20); Creatinine Clr Calc Pharmacy 53.2 ml/min; Potassium 4.4 mmol/L (3.5-5.1)
[2024-07-13] MEDS: amLODIPine BESYLATE 5 MG TAB PO SCH (09:07)
[2024-07-13] MEDS: methylPREDNISolone 4 MG TAB PO SCH (09:07)
--- NOTE | 2024-07-13 10:27 | Orthopedic Progress Note ---
Date of Service July 13, 2024 Assessment & Plan (1) Primary localized osteoarthritis of left hip: Plan: Patient seems to be improving. Would recommend PT/OT, weightbearing as tolerated with a walker as needed. We discussed follow-up with Dr. Guerra in 3 to 4 weeks. We discussed conservative treatment including pain control with possible hip joint injections versus surgical management. Patient is leaning more towards surgical management which she is aware would be a total hip replacement. He discussed today that he was having bilateral anterior pain that went down to his kneecap that was constant and very severe. I discussed with them that potentially there could be a back component to this and it could be from diffuse disc bulge at L3-L4. Would continue to monitor this and he possibly would benefit from spine consultation. Could benefit from steroids if no contraindications. Once oral prednisone taper if completed he can continue naproxen 500 mg p.o. twice daily with intermittent Tylenol to control his pain. Patient understands and agrees with the plan. Will sign off for now, patient is orthopedically stable for discharge. Admission and Anticipated Discharge Date Admission Date: July 12, 2024 Subjective Anthony says that he is overall doing well this morning. He is not having much pain. He feels improved. He says he has not been out of bed or walking much. He has not yet worked with physical therapy. Physical Exam Physical Exam: He has full range of motion of his ankle 5 out of 5 strength with dorsiflexion/plantarflexion. Full range of motion of his knee. He can tolerate some passive range of motion of the hip but has pain with flexion and more severe pain with internal and external rotation. He hardly has any internal rotation only about 5 degrees of external rotation. Results & Data Vital Signs (Past 12 Hours) Vital Signs Temp Pulse Pulse Resp BP BP Pulse Ox 07/13/24 08:02 36.7 C 94 H 18 157/81 H 94 07/13/24 07:30 87 07/13/24 02:51 36.7 C 88 16 161/89 H 93 07/12/24 22:49 36.7 C 94 H 16 173/81 H 93 O2 Del Method 07/13/24 08:02 Room Air 07/13/24 07:30 07/13/24 02:51 Room Air 07/12/24 22:49 Room Air
[2024-07-13 11:16] VITALS: O2SAT 93
--- NOTE | 2024-07-13 11:57 | Hospitalist Progress Note ---
Date of Service July 13, 2024 Assessment & Plan (1) Primary localized osteoarthritis of left hip: (2) Asymptomatic hypertensive urgency: Plan: Left hip osteoarthritis Ambulatory dysfunction Lumbar disc disease --Lumbar CT:Mild lumbar spondylosis with diffuse disc bulge at L3-4 level.. No acute fractures. --Hip X mathew:No acute fracture or dislocation. Moderate to severe right with severe left hip osteoarthritis. -- Weightbearing as tolerated Continue Medrol Dosepak Consider intra-articular corticosteroid injection likely as outpatient Appreciate orthopedics input PT OT hermilo Advised to follow-up with orthopedics on discharge Abnormal CT abdomen H/O Incarcerated/strangulated umbilical hernia S/P surgery in 2019 --CT ABD:Previously visualized umbilical hernia now shows a small hypodense collection of size 3.5 x 3.0cm with suspicious inflammatory subcutaneous soft tissue. Collection is seen deep to the linea alba within the abdominal cavity. Possibility of omphalitis with a umbilical abscess. -- Patient asymptomatic - Appreciate surgery input: No further testing needed currently. No antibiotics needed -Empirically on Zosyn--we will discontinue Tolerating diet with no issues Advised to follow-up with surgery if he develops any symptoms Acute kidney injury on CKD II Likely due to NSAIDs use Continue gentle IV fluids Avoid nephrotoxic agents as able Monitor renal function Avoid NSAIDs Creatinine 1.6 today Advised outpatient blood work in 1 week DM II Last HbA1c 8.0 Continue insulin while hospitalized Monitor blood glucose levels Hyperlipidemia Continue atorvastatin Hypertension Previously on ARB Blood pressure elevated likely secondary to pain Started on low-dose amlodipine Monitor and adjust medications as needed Blood pressure better DVT Px: Heparin SQ Code Status Full code Disposition Home Admission and Anticipated Discharge Date Admission Date: July 12, 2024 Subjective Patient is seen and examined at bedside Hip pain is much improved No new complaints Discussed with patient's family at bedside Had PT evaluation today Also denies any chest pain, dyspnea, nausea, vomiting, dizziness Renal function slightly better today Plan to be discharged home today Review of Systems Review of Systems: All systems reviewed & are unremarkable except as noted in Subjective Physical Exam Physical Exam: Physical Exam: Vitals signs as noted above General Appearance:Moderately built and nourished, no apparent distress Head: normocephalic, Atraumatic Eyes: normal inspection, EOMI Neck: supple, Trachea midline Respiratory/Chest: Normal breath sounds, CTA, No accessory muscle use Cardiovascular: S1, S2, No murmur Abdomen/GI:Soft, Non tender, Bowel sounds present Extremities/Musculoskeletal:normal inspection, no edema,+ L straight leg raise, Mildly decreased ROM Neurologic/Psych:AAOX3, grossly no focal neurological deficits Skin: normal color, warm Results & Data Results & Data Vital Signs (Past 12 Hours) Vital Signs Temp Pulse Pulse Resp BP Pulse Ox O2 Del Method 07/13/24 11:15 36.7 C 94 H 18 115/63 93 Room Air 07/13/24 08:02 36.7 C 94 H 18 157/81 H 94 Room Air 07/13/24 07:30 87 07/13/24 02:51 36.7 C 88 16 161/89 H 93 Room Air Laboratory Results Short CBC 07/13/24 Range/Units 07:57 WBC 9.00 (4.8-10.8) K/ul Hgb 14.6 (14.0-18.0) g/dl Hct 43.9 (42.0-52.0) % Plt Count 202 (130-400) K/uL BMP 07/13/24 07:57 Sodium 136 Potassium 4.4 Chloride 107 Carbon Dioxide 23 BUN 30 H Creatinine 1.60 H Glucose 181 H Calcium 9.0
--- NOTE | 2024-07-13 12:08 | Discharge Summary ---
Date of Service July 13, 2024 Admission HPI Per Admitting Provider History obtained from patient, family, and records. Medical history significant for hypertension, hyperlipidemia, DM2 insulin requiring, CRI (baseline creatinine 1.3) Last confinement 2018 under General Surgery service for incarcerated/strangulated umbilical hernia status post open repair. Unremarkable postop course. 5 days ago, patient noted worsening of chronic left hip pain. Some radiation to the groin. Achy pain worse on motion. Household work possibly preceding symptoms. No fever, no chills. Denies chest pain, SOB. Some hip pain radiation to the thigh. Patient consulted [facility] ER 4 days ago. CAT scan showed "bone and bone left hip problem and possible fluid collection around hernia" as per . Patient advised to follow-up with PCP for outpatient Orthopedics and General Surgery referrals. Patient prescribed naproxen on discharge from ER. Worsening discomfort overnight not relieved by home NSAID Rx.. No headache, no nausea, no vomiting. Patient brought to ER by for evaluation. SBP 180s upon arrival at the ER. 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 Admission Exam Per Admitting Provider GENERAL: Comfortable, pleasant, dysphonic (chronic as per patient), no respiratory distress SKIN: Normal color, warm HEENT: [place] palpebral conjunctivae, no ptosis, dry buccal mucosa NECK : Supple, no tenderness CHEST : CTA, no tenderness HEART : RRR, no obvious murmurs ABDOMEN: Some distention, left groin tenderness BACK : Minimal low back tenderness, negative straight leg raise test EXTREMITIES : Left hip tenderness, no LE swelling, palpable pulses, no other conspicuous deformities noted NEUROLOGIC : Coherent, no facial asymmetry, no other gross focality Principal Diagnosis Left hip osteoarthritis Ambulatory dysfunction Lumbar disc disease Acute kidney injury on CKD II Abnormal CT abdomen Hypertension Discharge Data Allergies Allergy/AdvReac Type Severity Reaction Status Date / Time NSAIDS (Non-Steroidal AdvReac Intermediate renal Verified 07/12/24 08:11 Anti-Inflamma failure Consultations 07/12/24 06:08 ED Decision to Admit Stat 07/12/24 07:22 Consult Orthopedic Surgery Routine 07/12/24 07:29 Consult General Surgery Routine Procedures Performed Laboratory Results WBC 9.00 K/ul (4.8-10.8) 07/13/24 07:57 RBC 4.85 M/uL (4.70-6.10) 07/13/24 07:57 Hgb 14.6 g/dl (14.0-18.0) 07/13/24 07:57 Hct 43.9 % (42.0-52.0) 07/13/24 07:57 MCV 90.5 fL (80.0-100.0) 07/13/24 07:57 MCH 30.1 pg (25.0-34.0) 07/13/24 07:57 MCHC 33.3 g/dL (32.0-36.0) 07/13/24 07:57 RDW Std Deviation 45.7 fL (36.4-46.3) 07/13/24 07:57 RDW Coeff of Akhil 13.7 % (11.5-14.5) 07/13/24 07:57 Plt Count 202 K/uL (130-400) 07/13/24 07:57 MPV 9.2 fL (9.4-12.4) L 07/13/24 07:57 Immature Gran % (Auto) 0.2 % 07/13/24 07:57 Neut % (Auto) 89.0 % 07/13/24 07:57 Lymph % (Auto) 7.2 % 07/13/24 07:57 [place] % (Auto) 3.3 % 07/13/24 07:57 Eos % (Auto) 0.1 % 07/13/24 07:57 Baso % (Auto) 0.2 % 07/13/24 07:57 Neut # (Auto) 8.00 K/uL (1.40-6.50) H 07/13/24 07:57 Lymph # (Auto) 0.65 K/uL (1.20-3.40) L 07/13/24 07:57 [place] # (Auto) 0.30 K/uL (0.11-0.59) 07/13/24 07:57 Eos # (Auto) 0.01 K/uL (0.00-0.50) 07/13/24 07:57 Baso # (Auto) 0.02 K/uL (0.00-0.20) 07/13/24 07:57 Immature Gran # (Auto) 0.02 K/uL (0.01-0.20) 07/13/24 07:57 Sodium 136 mmol/L (136-145) 07/13/24 07:57 Potassium 4.4 mmol/L (3.5-5.1) 07/13/24 07:57 Chloride 107 mmol/L (98-107) 07/13/24 07:57 Carbon Dioxide 23 mmol/L (21-32) 07/13/24 07:57 Anion Gap 6 (3-11) 07/13/24 07:57 BUN 30 mg/dl (6-23) H 07/13/24 07:57 Creatinine 1.60 mg/dl (0.6-1.4) H 07/13/24 07:57 Est Cr Clr Drug Dosing 53.2 ml/min 07/13/24 07:57 eGFR 48.72 07/13/24 07:57 BUN/Creatinine Ratio 18.8 (10-20) 07/13/24 07:57 Glucose 181 mg/dl (70-99(Fasting)) H 07/13/24 07:57 POC Glucose 225 mg/dl (70-99) H 07/13/24 12:12 Estimat Average Glucose 174 mg/dl 07/12/24 02:45 Hemoglobin A1c 7.7 % (4.5-5.6) H 07/12/24 02:45 Calcium 9.0 mg/dl (8.6-10.3) 07/13/24 07:57 Magnesium 2.0 mg/dl (1.7-2.4) 07/13/24 07:57 Total Bilirubin 0.4 mg/dl (0.2-1.0) 07/12/24 02:45 AST 22 U/L (13-39) 07/12/24 02:45 ALT 19 U/L (7-52) 07/12/24 02:45 Alkaline Phosphatase 116 U/L (34-104) H 07/12/24 02:45 Total Protein 6.5 gm/dl (6.0-8.3) 07/12/24 02:45 Albumin 4.3 gm/dl (3.4-5.0) 07/12/24 02:45 Globulin 2.2 gm/dl (2.5-4.0) L 07/12/24 02:45 Albumin/Globulin Ratio 2.0 (0.9-2) 07/12/24 02:45 Urine Color Yellow 07/12/24 Unknown Urine Appearance Clear (Clear) 07/12/24 Unknown Urine pH 6.0 (4.5-7.5) 07/12/24 Unknown Ur Specific Delta 1.022 (1.000-1.030) 07/12/24 Unknown Urine Protein Trace (Negative) H 07/12/24 Unknown Urine Glucose (UA) 2+ (Negative) H 07/12/24 Unknown Urine Ketones Negative (Negative) 07/12/24 Unknown Urine Blood Negative (Negative) 07/12/24 Unknown Urine Nitrite Negative (Negative) 07/12/24 Unknown Urine Bilirubin Negative (Negative) 07/12/24 Unknown Urine Urobilinogen Negative (Negative) 07/12/24 Unknown Ur Leukocyte Esterase Negative (Negative) 07/12/24 Unknown Urine WBC (Auto) 0-5 /hpf (0-5) 07/12/24 Unknown Urine RBC (Auto) 0-2 /hpf (0-2) 07/12/24 Unknown U Hyaline Cast (Auto) 0-2 /lpf (0-2) 07/12/24 Unknown U Epithel Cells (Auto) 0-2 /hpf (0-2) 07/12/24 Unknown Urine Bacteria (Auto) None Seen (None Seen) 07/12/24 Unknown Impressions Lumbar Spine CT 07/12/24 02:48 EXAM: CT lumbar spine wo con CLINICAL HISTORY: recon TECHNIQUE: Multiple contiguous axial images were obtained through the lumbar spine without IV contrast. Sagittal and coronal reformatted images were obtained from the axial data. CT scan was performed according to ALARA (as low as reasonably achievable). COMPARISON: - FINDINGS: The normal lordotic curvature of the lumbar spine is maintained. Mild degenrative anterieor and lateral osteophytes seen. Lumbar vertebral bodies are maintained in height and alignment. No vertebral destructive changes are seen. T11-T12: Evaluated on sagittal images only. No disc bulge, canal stenosis or neuroforaminal narrowing. Subarticular recesses are patent. T12-L1: Evaluated on sagittal images only. No disc bulge, canal stenosis or neuroforaminal narrowing. Subarticular recesses are patent. L1-L2: No disc bulge, canal stenosis or neuroforaminal narrowing. Subarticular recesses are patent. L2-L3: No disc bulge, canal stenosis or neuroforaminal narrowing. Subarticular recesses are patent. L3-L4: Mild diffuse disc bulge causing indentation over the anterior thecal sac and not causinng any canal stenosis or neuroforaminal narrowing. Subarticular recesses are patent. L4-L5: No disc bulge, canal stenosis or neuroforaminal narrowing. Subarticular recesses are patent. L5-S1: No disc bulge, canal stenosis or neuroforaminal narrowing. Subarticular recesses are patent. Paravertebral soft tissues are unremarkable. IMPRESSION: 1. Mild lumbar spondylosis with diffuse disc bulge at L3-4 level. 2. No acute fractures. Electronically signed by Naga Stanton 07-12-2024 05:56 AM Abdomen/Pelvis CT 07/12/24 03:34 EXAM: CT abd pelvis wo con CLINICAL HISTORY: CVA ttp, hip/back pain TECHNIQUE: Contiguous axial images were obtained from the level of the diaphragm to the pubic symphysis without intravenous or oral contrast. Coronal and sagittal reconstructions were likewise performed and indicated to increase the sensitivity for detecting clinically relevant pathology. CT scan was performed according to ALARA (as low as reasonably achievable). COMPARISON: 03/18/2019 13:33:17 CUT OUT OPERATOR FINDINGS: Interlobular septal thickening is noted involving bilateral lung bases. Possibility of interstitial edema. Evaluation of the abdominal and pelvic visceral organs is limited without intravenous contrast. The unenhanced liver, spleen, pancreas, and adrenal glands are grossly unremarkable. The gallbladder is present. The kidneys are normal in size and attenuation without obvious calcification. There is no hydronephrosis. Bilateral mild perinephric fat stranding and pararenal fascial thickening. The ureters are normal in caliber. No adenopathy or fluid collections are seen. Few uncomplicated colonic diverticulosis. No evidence of focal or diffuse bowel wall thickening or evidence of bowel obstruction is seen. The aorta is normal in caliber. The urinary bladder is normal in contour. Pelvic viscera are grossly unremarkable. No aggressive appearing osseous lesions are identified. Previously visualized umbilcial hernia now shows a small hypodense collection of size 3.5 x 3.0cm with mild scarring of the umbilical soft tissue. Osteoarthritic changes are noted involving bilateral hip joints in the form of asymmetrical joint space reduction, subchondral cyst/sclerosis involving the femoral head and acetabulum, marginal osteophytes, severe on left side. Rest of the findings are unchanged compared to the previous CT scan. IMPRESSION: 1. Bilateral mild perinephric fat strnading and pararenal fascial thickening - this can be age ra;etd, however RFT and urine analysis correlation to rule out infection. 2. Few uncomplicated colonic diverticulosis. 3. Previously visualized umbilcial hernia now shows a small hypodense collection of size 3.5 x 3.0cm with suspicious inflammatory subcutaneous soft tissue. Collection is seen deep to the linea alba within the abdominal cavity. Possibility of omphalitis with a umbilical abscess. 5. Interlobular septal thickening is noted involving bilateral lung bases. Possibility of interstitial edema. 6. Osteoarthritic changes are noted involving bilateral hip joints, severe on left side. Electronically signed by Naga Stanton 07-12-2024 06:05 AM Chest X-Ray 07/12/24 06:18 EXAM: XR chest 1V portable CLINICAL HISTORY: renal failure TECHNIQUE: An X-ray image of the chest is obtained in AP projection. COMPARISON: with the prior CTA 10/15/2023. FINDINGS: Pulmonary Parenchyma: Mild bilateral hilar vascuarl congestion noted . No evidence of consolidation, collapse, or focal opacities. No pulmonary nodules are identified. No evidence of pleural effusion or pleural thickening. Heart and Mediastinum: Heart size and shape are normal. No mediastinal widening or masses. No hilar or mediastinal lymphadenopathy. Bony Thorax: Bony thorax appears intact without fractures or deformities. Soft Tissues: Soft tissues overlying the chest wall are unremarkable. IMPRESSION: 1. Mild bilateral hilar vascuarl congestion noted . 2. No interval change since the prior study. Electronically signed by J Carlos Wilde 07-12-2024 07:57 AM Hip/Pelvis X-Ray 07/12/24 09:53 XR hip LT 2V w pelvis HISTORY: 63 years-old Male left hip pain chronic left hip pain COMPARISON: CT abdomen and pelvis 07/12/2024 TECHNIQUE: AP view of the pelvis with 2 views of the left hip FINDINGS: Moderate to severe right with severe left hip osteoarthritis. No acute fracture, dislocation or suspicious bone lesion. No avascular necrosis. Subcentimeter loose bodies within the left hip. IMPRESSION: 1. No acute fracture or dislocation. 2. Moderate to severe right with severe left hip osteoarthritis. ACT 112: Negative or not required by law. The above report was generated using voice recognition software. It may contain grammatical, syntax or spelling errors. Electronically signed by: Huang Crump M.D. 07/12/2024 10:53 AM Ordered Studies 07/12/24 02:48 CT lumbar spine wo con Stat 07/12/24 03:34 CT abd pelvis wo con Stat Hospital Course (1) Asymptomatic hypertensive urgency: Left hip osteoarthritis Ambulatory dysfunction Lumbar disc disease --Lumbar CT:Mild lumbar spondylosis with diffuse disc bulge at L3-4 level.. No acute fractures. --Hip X mathew:No acute fracture or dislocation. Moderate to severe right with severe left hip osteoarthritis. -- Weightbearing as tolerated Continue Medrol Dosepak Consider intra-articular corticosteroid injection likely as outpatient Appreciate orthopedics input PT JEANETTE akhtar Advised to follow-up with orthopedics on discharge Abnormal CT abdomen H/O Incarcerated/strangulated umbilical hernia S/P surgery in 2019 --CT ABD:Previously visualized umbilical hernia now shows a small hypodense collection of size 3.5 x 3.0cm with suspicious inflammatory subcutaneous soft tissue. Collection is seen deep to the linea alba within the abdominal cavity. Possibility of omphalitis with a umbilical abscess. -- Patient asymptomatic - Appreciate surgery input: No further testing needed currently. No antibiotics needed -Empirically on Zosyn--we will discontinue Tolerating diet with no issues Advised to follow-up with surgery if he develops any symptoms Acute kidney injury on CKD II Likely due to NSAIDs use Continue gentle IV fluids Avoid nephrotoxic agents as able Monitor renal function Avoid NSAIDs Creatinine 1.6 today Advised outpatient blood work in 1 week DM II Last HbA1c 8.0 Continue insulin while hospitalized Monitor blood glucose levels Hyperlipidemia Continue atorvastatin Hypertension Previously on ARB Blood pressure elevated likely secondary to pain Started on low-dose amlodipine Monitor and adjust medications as needed Blood pressure better DVT Px: Heparin SQ Code Status Full code Disposition Home Total Time Total Time Spent Total Time Spent (In Minutes): 43 minutes Discharge Plan Discharge Items Patient Disposition: Home - Self-Care Reason For Visit: HTN URG Discharge Diagnosis: Left hip osteoarthritis Ambulatory dysfunction Lumbar disc disease Acute kidney injury on CKD II Abnormal CT abdomen Hypertension Activity: Per Instructions section Exercise/Sports: Gradually increase as tolerated Non-emergency contact: Primary Care Provider and Surgeon Call non-emergency contact if: you have any medication questions, your symptoms worsen, your pain is concerning for you and you have a fever Follow-up/Referrals: Charles Gonzales MD [Primary Care Provider] - Charles Guerra MD [Physician] - 08/11/24 10:00 am Diet: Carb Consistent or DM2 and [facility] Attending Provider Instructions: Follow-up with your primary care physician in 1 week Follow-up with your orthopedic surgeon Dr. Guerra on 08/11/2024 and scheduled Consider following with your surgeon if you develop any swelling, pain, redness, fever at umbilical region as advised --Increase oral fluid intake to help with your kidney function as advised - Get blood test (basic metabolic panel) in 1 week to reassess your renal function --Complete the steroid (methylprednisolone) tapering course as prescribed. -- You are noted to have high blood pressure while you are hospitalized. You are started on amlodipine 5 mg daily. Monitor your blood pressure regularly as advised. Discuss with your primary care physician for further adjustment of medications as needed. -- Avoid [id number] pain medicines except for acetaminophen as advised Seek immediate medical attention if your symptoms reoccur or worsen Please review medication list provided on discharge for any medication changes as instructed. Please call if you have any questions or problems. You can reach a [facility] hospitalist on duty at [facility] 24 hours a day by calling [phone] [facility] Engine Test Cell Technician Provider Instructions: Orthopedic Discharge Instructions: Weight bear as tolerated with walker or cane as needed Range of motion as tolerated Pain control Ice as needed Follow up with Dr Guerra from [facility] as scheduled in 3-4 weeks Pending Studies at Discharge: No Stand-Alone Forms: My [facility], Smoking Cessation Medications and DC Order Prescriptions: New amlodipine [Norvasc] 5 mg Tablet 5 mg PO QAM Qty: 30 0RF oxycodone 5 mg Tablet 5 mg PO QID PRN (Reason: pain) Qty: 12 0RF famotidine [Acid It Compliance Manager (famotidine)] 10 mg Tablet 10 mg PO BID PRN (Reason: heartburn) Qty: 30 0RF methylprednisolone 4 mg Tablet 4 mg PO UD Qty: 14 0RF Rx Instructions: Start taking methylprednisolone 4 mg 4 times a day on 07/09/2024, then 3 times a day for 1 day, then 2 times a day and then once a day and stop Continued atorvastatin 40 mg tablet 40 mg PO QAM Jardiance 25 mg tablet 25 mg PO QAM insulin aspart U-100 [Novolog FlexPen U-100 Insulin] 100 unit/mL (3 mL) insulin pen 5 unit SUBCUT TID insulin glargine [Lantus Solostar U-100 Insulin] 100 unit/mL (3 mL) insulin pen 26 unit SUBCUT HS Ozempic 2 mg/dose (8 mg/3 mL) pen injector 2 mg SUBCUT WK Discharge Orders: Discharge Order (Routine); Ordered 07/13/24 Ordered By: Austin Connell/Other Patient Handouts: Managing Type 2 Diabetes Admission Data Admit Date/Time: 07/12/24 07:16 Attending Provider: Austin Martinez Admit Provider: Rony Mancuso Primary Care Provider: Charles Gonzales Other Providers: Charles Guerra Matthew D.; Rony Mancuso Other Interventions: Discharge Summary Assessment (RN) Last Done: 07/13/24 12:09
[2024-07-13 12:10] VITALS: BP 173/81; PULSE 69
--- OUTSIDE RECORDS SUMMARY | 2024-07-13 20:30 | External Medical Summary | Summary of Care ---
Author Name Unknown Organization [facility] Address [address] [place] [address] Phone [phone] Care Team Providers Care Senior Education Specialist Name Role Phone Charles Gonzales MD Primary Care Provider + Encounter Details Date Type Department Care Team (Late st Contact Info) Description 07/10/2024 Result Scan Unspecified Department <No scans attached> Allergies No known active allergiesdocumented as of this encounter (statuses as of 07/13/2024) Medications ONETOUCH LANCETS MISC Use to test [...] 15 mL 11 04/29/19 25 Active Pen [place] 33G X 4 MM Use as directed. [...] as of this encounter (statuses as of 07/13/2024) Active Problems Problem Noted Date Diagnosed Date [...] as of this encounter (statuses as of 07/13/2024) Resolved Problems Problem Noted Date Diagnosed Date Resolved Date Thoracic back pain 10/31/2015 8 Well adult exam 04/26/2014 07/10/2024 Overview (08/11/2023): 07/30 Stress echo WNL. 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 Not on file Not on file No t on file documented as of this encounter Plan of Treatment Upcoming Encounters Date Type Department Care Team (Late st Contact Info) Description 07/14/2024 9:00 AM EDT Office Visit Ophthalmology, [facility] [address] [place] [phone] Quinton Will, DO [address] [place] [id number] 07/16/2024 8:45 AM EDT Imaging Radiology [facility] [address] [place] [phone] 07/20/2024 1:00 PM EDT Office Visit Orthopaedics [facility] [address] [place] [phone] Patricia Shin MD [address] [place] [phone] 09/23/2024 10:00 AM EDT Office Visit Pharm[facility], [facility] [place] [phone] [facility] [address] [place] [phone] Scheduled Procedures Name Priority Associated Diagnoses Date/Ti [...] Pfizer risk series) 02/09/2024 01/12/2024, 05/15/2020, 04/05/2020 GFR 04/22/2024 04/22/2023, 06/0 06/2022, 07/31/2022, Additional history exists HbA1c 07/14/2024 01/14/2024, 10/06, 04/22/2023, Additional history exists Diabetic Eye Exam 06/25/2025 06/25/2024, , 08/19/2023, Additional history exists Albumin/Creatinine Ratio 07/10/2025 025, 04/22/2023, 07/31/2022, Additional history exists Colonoscopy 12/25/2025 12/26/2015, 12/07, [...] Procedure Name Priority Date/Time Associated Diagnosis Comments RADIOLOGY SCANNED RESULT 07/10/2024 documented in this encounter Results * RADIOLOGY SCANNED RESULT (07/10/2024) 07/10/2024 us No Physician Data Unknown DIAGNOSTIC RADIOLOGY S ERVICES Final Result documented in this encounter Care Teams Senior Education Specialist Relationship Specialty Start Date End Date Charles Gonzales MD [address] [place] [id number] PCP - General Family Medicine 08/24/21 documented as of this encounter
[2024-07-13] MEDS ORDERED: methylPREDNISolone 4 MG TAB PO SCH (21:00)
[2024-07-14] MEDS ORDERED: methylPREDNISolone 4 MG TAB PO SCH (07:00)
[2024-07-15] MEDS ORDERED: methylPREDNISolone 4 MG TAB PO SCH (07:00)
[2024-07-16] MEDS ORDERED: methylPREDNISolone 4 MG TAB PO SCH (07:00)
[2024-07-17] MEDS ORDERED: methylPREDNISolone 4 MG TAB PO SCH (07:00)
== END 2024-07-13 13:29 | disposition home or self-care (01) ==
LOC: ED 02:09 → EDINP 02:09 → 2W 08:52

== ENCOUNTER 2024-08-13 05:24 | Inpatient (IN) ==
--- NOTE | 2024-07-31 13:40 | PAT Medication Instructions ---
Medication Instructions Date of Service July 31, 2024 Home Medications Medication Instructions Recorded amlodipine 5 mg tablet (Norvasc) 5 mg PO QAM #30 tabs 07/13/24 famotidine 10 mg tablet (Acid 10 mg PO BID PRN heartburn #30 tabs 07/13/24 Outdoor Landscape Architect (famotidine)) oxycodone 5 mg tablet 5 mg PO QID PRN pain #12 tabs 07/13/24 atorvastatin 40 mg tablet (Lipitor) 40 mg PO QAM empagliflozin 25 mg tablet (Jardiance) 25 mg PO QAM insulin aspart U-100 100 unit/mL (3 mL) subcutaneous pen (Novolog FlexPen U-100 Insulin aspart) 8 unit subcut TID insulin glargine 100 unit/mL (3 mL) subcutaneous pen (Lantus Solostar U-100 Insulin) 32 unit subcut HS semaglutide 2 mg/dose (8 mg/3 mL) subcutaneous pen injector (Ozempic) 2 mg subcut WK amlodipine 5 mg tablet (Norvasc) 5 mg PO QAM famotidine 10 mg tablet (Acid Outdoor Landscape Architect (famotidine)) 10 mg PO BID PRN oxycodone 5 mg tablet 5 mg PO QID PRN gabapentin 100 mg capsule 100 mg PO TID losartan 25 mg tablet 25 mg PO QAM STOP 7 days before surgery semaglutide 2 mg/dose (8 mg/3 mL) subcutaneous pen injector (Ozempic) 2 mg subcut WK STOP 3 days before surgery empagliflozin 25 mg tablet (Jardiance) 25 mg PO QAM DO NOT take the morning of surgery insulin aspart U-100 100 unit/mL (3 mL) subcutaneous pen (Novolog FlexPen U-100 Insulin aspart) 8 unit subcut TID losartan 25 mg tablet 25 mg PO QAM Take morning of surgery With a small sip of water, OTHERWISE NOTHING TO EAT OR DRINK AFTER MIDNIGHT: atorvastatin 40 mg tablet (Lipitor) 40 mg PO QAM amlodipine 5 mg tablet (Norvasc) 5 mg PO QAM famotidine 10 mg tablet (Acid Outdoor Landscape Architect (famotidine)) 10 mg PO BID PRN(if needed) oxycodone 5 mg tablet 5 mg PO QID PRN(if needed) gabapentin 100 mg capsule 100 mg PO TID Take evening before surgery insulin aspart U-100 100 unit/mL (3 mL) subcutaneous pen (Novolog FlexPen U-100 Insulin aspart) 8 unit subcut TID insulin glargine 100 unit/mL (3 mL) subcutaneous pen (Lantus Solostar U-100 Insulin) 32 unit subcut HS famotidine 10 mg tablet (Acid Outdoor Landscape Architect (famotidine)) 10 mg PO BID PRN(if needed) oxycodone 5 mg tablet 5 mg PO QID PRN(if needed) gabapentin 100 mg capsule 100 mg PO TID Other Notes If you have any questions please call us at [phone] or [phone] or [phone] or [phone]
--- NOTE | 2024-08-03 14:00 | Anesthesiology Consultation ---
Date of Service August 03, 2024 Assessment & Plan (1) Encounter for pre-operative examination: Plan - check BSG am DOS. - PCP office visit 07/21/24 [facility]: "...hospital follow-up...elevated creatinine levels...recent A1c 7.7%...recheck BMP...avoid NSAIDs and prednisone to protect kidney function..." Case discussed in detail with Dr. Mares regarding updated PAT testing and he advised nothing additional is needed. Testing will be faxed to [facility] PCP for continuity of care. - semaglutide instructions: Patient informed at PAT visit to stop 7 days prior to surgery-voiced understanding. Patient advised to check with prescriber to see if alternative diabetic management changes recommended while holding semaglutide- if so, patient to call back to [facility] to update chart and discuss if any further preop medication instructions needed. - Outpatient joint pathway: Per surgeon and patient, plan for outpatient joint program. Upon review of chart- patient is an acceptable candidate for Same Day Joint Program from anesthesia perspective pending perioperative course. Pending patient is motivated, has good support and surgeon's office completes Same Day Joint Program preop requirements-patient may proceed with outpatient ELIAS. Chart Review Chart Review: Acceptable Risk for Surgery and Patient seen in Pre Admission Testing Teaching & Discussion Pre-Anesthesia Teaching/Discussion Notes: Instructed NPO after midnight before surgery, except medications with 15 cc of water. Medication instructions provided according to the [facility] guidelines. History Surgery Operation Date: 08/13/24 08:50 Proposed Procedures p OP: Left Total Hip Arthroplasty - Charles Guerra MD Height/Weight Height: 5 ft 11.5 in Weight: 92.2 kg Allergies Allergy/AdvReac Type Severity Reaction Status Date / Time NSAIDS (Non-Steroidal AdvReac Intermediate acute Verified 07/31/24 09:45 Anti-Inflamma renal insufficiency Medications Home Medications Medication Instructions Recorded Confirmed Last Taken atorvastatin 40 mg tablet (Lipitor) 40 mg PO QAM 10/15/23 07/31/24 Unknown empagliflozin 25 mg tablet 25 mg PO QAM 10/15/23 07/31/24 Unknown (Jardiance) insulin aspart U-100 100 unit/mL 8 unit subcut TIDM 07/12/24 07/31/24 Unknown (3 mL) subcutaneous pen (Novolog FlexPen U-100 Insulin aspart) insulin glargine 100 unit/mL (3 32 unit subcut HS 07/12/24 07/31/24 Unknown mL) subcutaneous pen (Lantus Solostar U-100 Insulin) semaglutide 2 mg/dose (8 mg/3 mL) 2 mg subcut WK 07/12/24 07/31/24 07/26/24 subcutaneous pen injector (Ozempic) amlodipine 5 mg tablet (Norvasc) 5 mg PO QAM #30 tabs 07/13/24 07/31/24 Unknown famotidine 10 mg tablet (Acid 10 mg PO BID PRN heartburn #30 tabs 07/13/24 07/31/24 Unknown Heel Edge Inker Machine (famotidine)) oxycodone 5 mg tablet 5 mg PO QID PRN pain #12 tabs 07/13/24 07/31/24 Unknown gabapentin 100 mg capsule 100 mg PO TID 07/31/24 07/31/24 Unknown losartan 25 mg tablet 25 mg PO QAM 07/31/24 07/31/24 Unknown Past Medical History Medical History (Updated 08/03/24 @ 14:15 by Mary Ann Melgoza PA-C) Acute kidney injury early July 2024 after taking higher doses of NSAIDS due to hip pain, evaluated at [facility] emergency room due to the severe pain in his left hip. pt unsure of any other details. Diabetes mellitus, type 2 IDDM History of COVID-19 (~2020) ~2020: asymptomatic. Hx of heartburn Hyperlipidemia Hypertension controlled, stable per pt: 112/60 home reading Osteoarthritis Patient denies h/o stroke, seizures, heart attack, heart failure, blood clots/DVTs or blood transfusions. Exercise / Class Metabolic Activity II 4-5 Yardwork/Stairs/Walk up hill (denies chest discomfort or shortness of breath with one flight of stairs) Past Family History Family History Other No pertinent family history in first degree relatives Past Surgical History Surgical History H/O umbilical hernia repair History of colonoscopy Past Anesthesia History No Hx of Anesthesia Complications and No Family Hx of Anesthesia Complications History of PONV No Hx of PONV and No Hx of Motion Sickness Social History Smoking Status: Never smoker Do You Dip or Chew Tobacco: No Hx Alcohol Use: Yes Alcohol type: beer alcohol intake frequency: a few times a month Hx Substance Use: No substance use type: does not use Review of Systems Patient denies chest pain, shortness of breath, dyspnea on exertion, snoring, witnessed apneas, fever, chills, cough, wheezing, or palpitations. Physical Exam Vital Signs Vitals BP 129/77 P 92 TEMP 97.7 SP02 96% on RA RESP 18 Physical Patient resting comfortably in chair in no acute distress, alert and oriented, responding appropriately throughout visit Full cervical extension range of motion without pain TMD 3.5 finger breadths Mallampati Score 2 Dentition: one crown, denies chipped or loose teeth, implants or bridges Lungs: normal respiratory effort. Good air movement, clear throughout to auscultation, no adventitious breath sounds Cardiac: regular rate and rhythm, no murmurs noted Carotid arteries: negative bruit bilat Lab Results Anesthesia Preop Results Results Anesthesia Widget: WBC 9.00 K/ul (4.8-10.8) 07/13/24 Hgb 14.6 g/dl (14.0-18.0) 07/13/24 Hct 43.9 % (42.0-52.0) 07/13/24 Plt 202 K/uL (130-400) 07/13/24 Na 142 mmol/L (136-145) 08/03/24 K 3.7 mmol/L (3.5-5.1) 08/03/24 Cl 110 mmol/L (98-107) H 08/03/24 CO2 26 mmol/L (21-32) 08/03/24 BUN 26 mg/dl (6-23) H 08/03/24 Creat 1.46 mg/dl (0.6-1.4) H 08/03/24 Glucose Level 92 mg/dl (70-99(Fasting)) 08/03/24 POC Glucose 225 mg/dl (70-99) H 07/13/24 PT 11.6 Seconds (9.0-12.0) 08/03/24 PTT 26 Seconds (21-31) 08/03/24 INR 1.1 (0.9-1.1) 08/03/24 HA1c 7.7 % (4.5-5.6) H 07/12/24 Urine Color Yellow 08/03/24 Urine Appearance Clear (Clear) 08/03/24 Urine pH 5.0 (4.5-7.5) 08/03/24 Urine Specific [place] 1.031 (1.000-1.030) H 08/03/24 Urine Protein 2+ (Negative) H 08/03/24 Urine Glucose (UA) 3+ (Negative) H 08/03/24 Urine Ketones 1+ (Negative) H 08/03/24 Urine Blood Negative (Negative) 08/03/24 Urine Nitrite Negative (Negative) 08/03/24 Urine Bilirubin Negative (Negative) 08/03/24 Urine Urobilinogen Negative (Negative) 08/03/24 Urine Leukocyte Esterase Negative (Negative) 08/03/24 Urine WBC (Auto) 0-5 /hpf (0-5) 08/03/24 Urine RBC (Auto) 6-10 /hpf (0-2) H 08/03/24 Urine Hyaline Casts (Auto) 0-2 /lpf (0-2) 08/03/24 Urine Epithelial Cells (Auto) 0-2 /hpf (0-2) 08/03/24 Urine Bacteria (Auto) None Seen (None Seen) 08/03/24 Blood Type O Positive 08/03/24 Antibody Screen NEGATIVE 08/03/24 Testing Electrocardiogram Date: 07/12/24 NSR, rate 81 bpm Chest X-Ray Date: 08/03/24 1. No active cardiopulmonary abnormality detected. 2. Previously visualized hilar vascular congestion is not seen in current study. Echocardiogram Date: 07/12/24 LVEF 55-60% Mild mitral regurgitation Mildly dilated RA Grade I diastolic dysfunction Other Testing Abdomen pelvis CT 07/12/24 Bilateral mild perinephric fat stranding and pararenal fascial thickening - this can be age related, however RFT and urine analysis correlation to rule out infection. Few uncomplicated colonic diverticulosis. Previously visualized umbilical hernia now shows a small hypodense collection of size 3.5 x 3.0cm with suspicious inflammatory subcutaneous soft tissue. Collection is seen deep to the linea alba within the abdominal cavity. Possibility of omphalitis with a umbilical abscess. Interlobular septal thickening is noted involving bilateral lung bases. Possibility of interstitial edema. Osteoarthritic changes are noted involving bilateral hip joints, severe on left side. Lumbar spine CT 07/12/24 1. Mild lumbar spondylosis with diffuse disc bulge at L3-4 level. 2. No acute fractures.
--- NOTE | 2024-08-06 10:46 | History & Physical Report ---
Date of Service August 06, 2024 Assessment & Plan (1) Osteoarthritis of left hip: Plan: PRE-OP Diagnosis: Left hip osteoarthritis Planned Procedure: Left total hip arthroplasty Plan: Patient is scheduled to undergo this procedure at the [facility] following the outpatient total joint pathway with Dr. Guerra on August. Risks and complications of the procedure such as: Infection, bleeding, pain, scarring, nerve blood vessel damage, weakness, wound problems, stiffness, incomplete relief of symptoms, hardware failure, hardware loosening, wear, fracture, tendon or ligament injury, dislocation, leg length inequality, blood clots, embolism, heart attack, stroke and were explained to the patient at his visit today. Informed consent to perform the procedure was obtained. Patient has an appointment to meet with anesthesia later this afternoon and while there will obtain CBC with differential, complete metabolic panel, PT/INR, blood type and screen, urinalysis, urine culture and sensitivity, EKG, hemoglobin A1c and a nasal culture for MRSA. Patient will also need preoperative medical clearance from their primary care provider Dr. Gonzales. This note is currently in his chart. Patient states that he plans on doing in- home physical therapy for the first 1 to 2 weeks postoperatively and then will transition to outpatient physical therapy. Patient will need a walker, raised toilet seat, shower chair and a hip kit. During today's visit we reviewed the total hip packet as well as precautions. We discussed discharge planning from the hospital. I provided paperwork to obtain a handicap placard for their vehicle. We discussed lectures offered by [facility] in regards to joint replacement surgery via Zoom. During today's visit the PDMP was checked and no red flags were raised that would prevent this from prescribing the patient an opioid analgesic for postoperative pain control. I sent prescriptions to his pharmacy for oxycodone, diclofenac sodium, Zofran and Keflex. Advised him to purchase 81 mg aspirin to use twice daily for the first 30 days postoperatively for blood clot prevention. I also recommended purchasing [id number] extra-strength Tylenol to use with every other dose of the oxycodone. I also asked the patient to purchase some sort of stool softener to use while taking the narcotic pain medication. Patient was advised that he will need to pass PT/OT protocol before being discharged on the day of surgery. He is scheduled for his 2-week postoperative follow-up visit with myself on August 26. Patient verbalizes understanding of all information provided. He thanks for the care that he received. If he has questions or concerns prior to surgery, he will contact the clinic. This chart was completed utilizing Erly voice recognition software. Grammatical errors, random word insertions, pronoun errors, and in complete sentences are an occasional consequence of the system. Any questions or concerns about the content, text, or information contained within the body of this dictation should be addressed directly to the physician for clarification. History of Present Illness Chief Complaint: Chief Complaint: Left hip pain Primary Care Provider: Charles Gonzales MD History of Present Illness (including history relevant to procedure): This 63-year-old male presents to the clinic today for his preoperative history and physical. Patient complains of ongoing hip pain for the past few years. He states over the past several months the pain is increased. He states the pain is worst at night when he is lying on his side. He states that about 2 weeks ago he went to the emergency department due to severe pain and difficulty ambulating and had x-rays performed diagnosing severe arthritis in his hip. Patient states that he was recently started on gabapentin and has been using a Medrol Dosepak that was prescribed by ED staff. He states that these have been taking the edge off his pain. However he states that he is very limited with range of motion and has difficulty putting on socks and shoes. Patient is electing to proceed with surgical intervention at this time. Review Of Systems: A 12 point review of systems formed and is unremarkable except for those that he stated in the HPI and past medical history. Past Medical History: Problems: Diabetes Hypertension Hypercholesterolemia Procedure History Procedure Procedure Date Comments Umbilical hernia repair Allergies and Sensitivities: No Known Medication Allergies Current Home Meds: (Last Updated 08/03 11:52) amLODIPine (amLODIPine 5 mg oral tablet) TAKE 1 TABLET BY MOUTH EVERY DAY IN THE MORNING atorvastatin (atorvastatin 40 mg oral tablet) TAKE 1 TABLET BY MOUTH EVERY DAY IN THE MORNING cephalexin (cephalexin 500 mg oral capsule) 500 mg PO tid post op infection prophylaxis diclofenac (diclofenac sodium 75 mg oral delayed release tablet) 75 mg PO bid PRN: as needed for pain with food empagliflozin (Jardiance 25 mg oral tablet) TAKE 1 TABLET BY MOUTH EVERY DAY IN THE MORNING famotidine (famotidine 10 mg oral tablet) TAKE 1 TABLET BY MOUTH TWICE A DAY NEEDED FOR HEARTBURN insulin aspart (NovoLOG FlexPen 100 units/mL injectable solution) PLEASE SEE ATTACHED FOR DETAILED DIRECTIONS insulin glargine (Lantus Solostar Pen 100 units/mL subcutaneous solution) INJECT 22 UNITS UNDER THE SKIN AT BEDTIME. losartan (losartan 25 mg oral tablet) TAKE 1 TABLET BY MOUTH EVERY DAY IN THE MORNING naproxen (naproxen 500 mg oral tablet) TAKE 1 TABLET TWICE DAILY FOR 10 DAYS NEEDED FOR PAIN, WITH FOOD ondansetron (Zofran 4 mg oral tablet) 4 mg PO q8h PRN: as needed for nausea/vomiting Post op nausea/vomiting oxyCODONE (oxyCODONE 5 mg oral tablet) TAKE 1 TABLET ORALLY FOUR TIMES DAILY NEEDED FOR PAIN oxyCODONE (oxyCODONE 5 mg oral tablet) 5 mg PO q4h PRN: as needed for pain post op pain controlMax 6 / day semaglutide (Ozempic (2 mg dose) 8 mg/3 mL subQ pen) INJECT 2 MG SUBCUTANEOUSLY ONE TIME PER WEEK unlisted medication (SpreadShout G7 SENSOR) USE DIRECTED EVERY 10 DAYS. USE 1 SENSOR EVERY 10 DAYS E11.9 Initial Wt: 08/03 93.9 kg 207 lb Allergies Allergy/AdvReac Type Severity Reaction Status Date / Time NSAIDS (Non-Steroidal AdvReac Intermediate acute Verified 07/31/24 09:45 Anti-Inflamma renal insufficiency Home Medications Medication Instructions Recorded Confirmed Type atorvastatin 40 mg tablet (Lipitor) 40 mg PO QAM 10/15/23 07/31/24 History empagliflozin 25 mg tablet 25 mg PO QAM 10/15/23 07/31/24 History (Jardiance) insulin aspart U-100 100 unit/mL 8 unit subcut TIDM 07/12/24 07/31/24 History (3 mL) subcutaneous pen (Novolog FlexPen U-100 Insulin aspart) insulin glargine 100 unit/mL (3 32 unit subcut HS 07/12/24 07/31/24 History mL) subcutaneous pen (Lantus Solostar U-100 Insulin) semaglutide 2 mg/dose (8 mg/3 mL) 2 mg subcut WK 07/12/24 07/31/24 History subcutaneous pen injector (Ozempic) amlodipine 5 mg tablet (Norvasc) 5 mg PO QAM #30 tabs 07/13/24 07/31/24 Rx famotidine 10 mg tablet (Acid 10 mg PO BID PRN heartburn #30 tabs 07/13/24 07/31/24 Rx Granulator Tender (famotidine)) oxycodone 5 mg tablet 5 mg PO QID PRN pain #12 tabs 07/13/24 07/31/24 Rx gabapentin 100 mg capsule 100 mg PO TID 07/31/24 07/31/24 History losartan 25 mg tablet 25 mg PO QAM 07/31/24 07/31/24 History Past Med/Surg History Problem List (Updated 08/06/24 @ 10:45 by Deangelo Bacon PA-C) Osteoarthritis of left hip Encounter for pre-operative examination Intractable low back pain (Acute) Abnormal computerized tomography of abdominal wall Primary localized osteoarthritis of left hip Uncontrolled type II diabetes mellitus (Chronic) Medical History Hx of heartburn Hyperlipidemia Hypertension controlled, stable per pt: 112/60 home reading Acute kidney injury early July 2024 after taking higher doses of NSAIDS due to hip pain, evaluated at [facility] emergency room due to the severe pain in his left hip. pt unsure of any other details. History of COVID-19 (~2020) ~2020: asymptomatic. Diabetes mellitus, type 2 IDDM Osteoarthritis Surgical History History of colonoscopy H/O umbilical hernia repair Family History Other No pertinent family history in first degree relatives Social History Smoking Status: Never smoker Second Hand Exposure: No; Do You Dip or Chew Tobacco: No; Hx Alcohol Use: Yes Alcohol type: beer Hx Substance Use: No Preferred Language: Serbian Communication Ability: Effective Line Tester Required: No Beliefs That Will Affect Care: None Current Living Situation: Spouse Feels Safe at Home: Yes Assistive Devices: Glasses Review of Systems All systems reviewed & are unremarkable except as noted in Subjective Physical Exam Physical Exam: Physical Exam: (relevant to the procedure, including heart and lung evaluation) General: Alert and oriented x 3 with proper grooming and hygiene Eyes: Pupils are equal and reactive to light with accommodation. Extraocular movements are intact Throat: Posterior oropharynx clear with absence of edema, erythema or exudate. Dentition is appropriate Cardiac: Regular rate and rhythm with no murmurs or gallops appreciated Lungs: Clear to auscultation throughout with no wheezing, rales or rhonchi Abdomen: Mildly obese, nondistended, nontender with normal active bowel sounds Extremities: Left hip; flexion is limited to 92 degrees internal rotation to -15 degrees and external rotation to 45 degrees. Straight leg raise test is positive. Logroll test is positive. Stinchfield test is positive. Patient experiences significant pain with scour and impingement testing. He experiences tenderness to palpation in the groin area. Neuro: Cranial nerves II through XII are intact no motor or sensory deficit Skin: Normal appearance with no open skin areas or discharge Results & Data Diagnostic Findings Studies of Lab Results (relevant to the procedure): 3 views of the left hip obtained 07/12/24 and stored in [facility] which show severe bone on bone arthritis in the left hip, subchondral sclerosis, and cyst formation.
[2024-08-13] MEDS: LR 60ML/HR IV SCH (05:55)
[2024-08-13] MEDS ORDERED: ROPIV 0.5% 246mg, Ketorolac 30mg, EPINEPHrine 0.5mg in NSS INFIL SCH (06:00)
[2024-08-13] MEDS: LR 500ML BOLUS, THEN 15ML/HR IV SCH (06:00)
[2024-08-13] MEDS: ACETAMINOPHEN 500 MG TAB PO SCH ×2 (06:03→21:10)
[2024-08-13] MEDS: FAMOTIDINE 20 MG TAB PO SCH (06:04)
[2024-08-13] MEDS: traMADol HCL 50 MG TABLET PO SCH (06:04)
[2024-08-13] MEDS: CeleBREX 200 MG CAP PO SCH (06:04)
[2024-08-13] MEDS: Scopolamine 1 MG TDSY TD SCH (06:05)
[2024-08-13] MEDS: dexAMETHasone**PF** 10 MG/ML VIAL IV SCH (06:05)
--- OUTSIDE RECORDS SUMMARY | 2024-08-13 06:10 | External Medical Summary | Continuity of Care Document ---
Author Name Unknown Organization [place] [id number] Address [address] [place] [id number] Care Team Providers Care Burlap Spreader Name Role Phone Charles Gonzales Primary Care Physician [phone] [facility]counter [id number] Date(s): 08/03/24 - 08/03/24 [facility] [employer] [address] [place] [id number] [address] Encounter Diagnosis Preop examination(Discharge Diagnosis) - 08/03/24 Osteoarthritis of left hip(Discharge Diagnosis) - 08/03/24 Discharge Disposition: Home or Self Care Attending Physician: JULIO CESAR Bacon Dennis Referring Physician: MD Mari, Charles Escamilla Encounter Type: Clinic Allergies, Adverse Reactions, Alerts No Known Medication Allergies Medications amLODIPine 5 mg oral tablet TAKE 1 TABLET BY MOUTH EVERY DAY IN THE MORNING Start Date: 07/28/24 Status: Ordered Repeat number: 1 atorvastatin 40 mg oral tablet TAKE 1 TABLET BY MOUTH EVERY DAY IN THE MORNING Start Date: 07/28/24 Status: Ordered Repeat number: 1 cephalexin 500 mg oral capsule Start: 08/03/24 11:38:00 AM EDT, 1 cap, PO, tid, Disp# 15 cap, post op infection prophylaxis, Pharmacy: [id number] Start Date: 08/03/24 Stop Date: 08/08/24 Status: Ordered Quantity: 15.0 Unit: cap Repeat number: 1 Indications: Encounter for other preprocedural examination; Unilateral primary osteoarthritis, lefthip; DEXCOM G7 SENSOR DEXCOM G7 SENSOR, USE DIRECTED EVERY 10 DAYS. USE 1 SENSOR EVERY 10 DAYS E11.9 Start Date: 07/28/24 Status: Ordered Repeat number: 1 diclofenac sodium 75 mg oral delayed release tablet Start: 08/03/24 11:37:00 AM EDT, 1 tab, PO, bid, Disp# 60 tab, Refills: 1, with food, PRN: as neededfor pain, Pharmacy: [facility]/pharmacy #[id number] Start Date: 08/03/24 Stop Date: 10/02/24 Status: Ordered Quantity: 60.0 Unit: tab Repeat number: 2 Indications: Encounter for other preprocedural examination; Unilateral primary osteoarthritis, lefthip; famotidine 10 mg oral tablet TAKE 1 TABLET BY MOUTH TWICE A DAY NEEDED FOR HEARTBURN Start Date: 07/28/24 Status: Ordered Repeat number: 1 Jardiance 25 mg oral tablet TAKE 1 TABLET BY MOUTH EVERY DAY IN THE MORNING Start Date: 07/28/24 Status: Ordered Repeat number: 1 Lantus Solostar Pen 100 units/mL subcutaneous solution INJECT 22 UNITS UNDER THE SKIN AT BEDTIME. Start Date: 07/28/24 Status: Ordered Repeat number: 1 losartan 25 mg oral tablet TAKE 1 TABLET BY MOUTH EVERY DAY IN THE MORNING Start Date: 07/28/24 Status: Ordered Repeat number: 1 naproxen 500 mg oral tablet TAKE 1 TABLET TWICE DAILY FOR 10 DAYS NEEDED FOR PAIN, WITH FOOD Start Date: 07/28/24 Status: Ordered Repeat number: 1 NovoLOG FlexPen 100 units/mL injectable solution PLEASE SEE ATTACHED FOR DETAILED DIRECTIONS Start Date: 07/28/24 Status: Ordered Repeat number: 1 oxyCODONE 5 mg oral tablet Start: 08/03/24 11:37:00 AM EDT, 1 tab, PO, q4h, Disp# 28 tab, Refills: 0, post op pain control Max 6 / day, PRN: as needed for pain, Pharmacy: [facility]/pharmacy #[id number] Start Date: 08/03/24 Status: Ordered Quantity: 28.0 Unit: tab Repeat number: 1 Indications: Encounter for other preprocedural examination; Unilateral primary osteoarthritis, lefthip; oxyCODONE 5 mg oral tablet TAKE 1 TABLET ORALLY FOUR TIMES DAILY NEEDED FOR PAIN Start Date: 07/28/24 Status: Ordered Repeat number: 1 Ozempic (2 mg dose) 8 mg/3 mL subQ pen INJECT 2 MG SUBCUTANEOUSLY ONE TIME PER WEEK Start Date: 07/28/24 Status: Ordered Repeat number: 1 Zofran 4 mg oral tablet Start: 08/03/24 11:38:00 AM EDT, 1 tab, PO, q8h, Disp# 14 tab, Post op nausea/vomiting, PRN: as needed for nausea/vomiting, [facility]acy: [id number] Start Date: 08/03/24 Status: Ordered Quantity: 14.0 Unit: tab Repeat number: 1 Indications: Encounter for other preprocedural examination; Unilateral primary osteoarthritis, lefthip; Mental Status 08/03/24 Barriers to Learning one year None evide nt Mandatory Health Literacy Documentation Yes Health Literacy Communication Barriers N ever Primary Language Spanish Problem List Condition Confirmation Course Effective Dates Status Health St atus Informant Diabetes Confirmed Active Diagnosis Diagnosis Type Effective Dates Health Status Clinical Service Informant Osteoarthritis of left hip Discharge Diagnosis 08/03/24 Preop examination Discharge Diagnosis 08/03/24 Vital Signs Most recent to oldest [Reference Range]: 1 Height 181.5 cm (08/03/24 11:19 AM) Patient Weight 93.9 kg (08/03/24 11:19 AM) Body Mass Index 28.5 kg/m2 (08/03/24 11:19 AM) Temperature [36.5-37.9 DegC] 36.8 DegC (08/03/24 11:19 AM) Respiratory Rate 20 br/min (08/03/24 11:19 AM) Blood Pressure 116/70mmHg (08/03/24 11:19 AM) Cuff Pulse Pressure 46 mmHg (08/03/24 11:19 AM) Social History Social History Type Response Smoking Status Never smoked cigaret oanh Sex Male Sex Representation Male (finding) Patient Care team information Care Team Personnel Name: MD Janet, Charles Theodore Position: Referring DIRECT Member Role: Primary Care Provider Address: [address] [address] [place] [employer]: [phone] Insurance Providers Guarantor name: BRANDY Garcia TIM Health Plan Information #: 1 Payer: [employer] Member Number: [id number] Policy Number: NA Group Number: [id number] Payer Identifier: [id number] Health Plan Information #: 2 Payer: [employer] Member Number: [id number] Policy Number: NA Group Number: [id number] Payer Identifier: [id number]
--- OUTSIDE RECORDS SUMMARY | 2024-08-13 06:10 | External Medical Summary | Summary of Care ---
Author Name Unknown Organization [facility] Address [address] [place] [address] Phone [phone] Care Team Providers Care Timber Surveyor Name Role Phone Charles Gonzales MD Primary Care Provider + Reason for Visit * Reason Onset Date Comments Encounter Created in Error 08/10/2024 Encounter Details Date Type Department Care Team (Late st Contact Info) Description 08/10/2024 Telephone Ophthalmology, [facility] [address] [facility] [place] [address] Quinton Will DO [address] [facility] [address] Encounter Created in Error Allergies No known active allergiesdocumented as of this encounter (statuses as of 08/10/2024) Medications ONETOUCH LANCETS MISC Use to test [...] MORNING 90 Tablet 3 02/15/20 24 Active Pen [place] 33G X 4 MM Use as directed. Use to inject insulin four times daily E11.9 400 Each 5 04/29/19 25 Active Ozempic (2 MG/DOSE) 8 MG/3ML Subcutaneous Solution Pen-injector (Semaglutide (2 MG/DOSE))Indicat ions:Type 2 diabetes mellitus with hemoglobin A1c goal of less than 7.0% (HCC) INJECT 2 MG SUBCUTANEOUSLY ONE TIME PER WEEK 3 mL 1 06/25/19 25 Active Insulin Glargine Solostar 100 UNIT/ML Subcutaneous Solution Pen-injector (Lantus SoloStar) Inject 26 units daily when not on steriods , take 32 units daily when taking steriods 120 mL 3 07/16/19 25 Active NovoLOG FlexPen 100 UNIT/ML Subcutaneous Solution Pen-injector (insulin aspart) Inject 8 Units under the skin in the morning and 8 Units at noon and 8 Units in the evening. Inject with meals. 30 mL 5 07/16/19 25 Active amLODIPine Besylate 5 MG Oral Tablet (Norvasc) Take 1 Tablet by mouth in the morning. 07/14/[address] 10 MG Oral Tablet Take 1 Tablet by mouth in the morning and 1 Tablet before bedtime. 07/14/19 25 Active Losartan Potassium 25 MG Oral Tablet (Cozaar) Take 1 Tablet by mouth in the morning. 07/18/19 25 Active oxyCODONE HCl 5 MG Oral Tablet (Oxy IR)Indications:A rthritis of left hip Take 1 Tablet by mouth every 4 hours as needed for Pain, Severe. 10 Tablet 07/23/19 25 Active Gabapentin 100 MG Oral Capsule (Neurontin)Indic ations:Arthritis of left hip Take 1 Capsule by mouth in the morning and 1 Capsule at noon and 1 Capsule before bedtime. 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 Not on file Not on file No t on file documented as of this encounter Plan of Treatment Upcoming Encounters Date Type Department Care Team (Late st Contact Info) Description 08/11/2024 11:00 AM EDT Office Visit Ophthalmology, [facility] [address] [place] [phone] Quinton Will, [address] [place] [address] 09/23/2024 10:00 AM EDT Office Visit Pharmacy, [facility] [address] [place] [address] Garcia, [facility] [address] [place] [address] Scheduled Procedures Name Priority Associated Diagnoses Date/Ti [...] Pfizer risk series) 02/09/2024 01/12/2024, 05/15/2020, 04/05/2020 HbA1c 01/20/2025 07/21/2024, 11/2023, 10/18/2023, Additional history exists Diabetic Eye Exam 06/25/2025 06/25/2024, , 08/19/2023, Additional history exists Albumin/Creatinine Ratio 07/10/2025 025, 04/22/2023, 07/31/2022, Additional history exists GFR 07/21/2025 07/21/2024, 04/08, 09/08/2022, Additional history exists Colonoscopy 12/25/2025 12/26/2015, 12/07, [...] filedocumented as of this encounter Care Teams Timber Surveyor Relationship Specialty Start Date End Date Charles Gonzales MD [address] [place] [address] PCP - General Family Medicine 08/24/21 documented as of this encounter
--- OUTSIDE RECORDS SUMMARY | 2024-08-13 06:10 | External Medical Summary | Summary of Care ---
Author Name Unknown Organization [facility] Address [address] [place] [address] Phone [phone] Care Team Providers Care Manager Cancer Name Role Phone Charles Gonzales MD Primary Care Provider + Reason for Visit * Reason Onset Date Comments Encounter Created in Error 08/10/2024 Encounter Details Date Type Department Care Team (Late st Contact Info) Description 08/10/2024 Telephone Ophthalmology, [facility] [address] [facility] [place] [address] Quinton Will DO [address] [facility] [address] Encounter Created in Error Allergies No known [...] 90 Tablet 3 02/15/20 24 Active Pen [place] 33G X 4 MM Use as directed. 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 Not on file Not on file No t on file documented as of this encounter Plan of Treatment Upcoming Encounters Date Type Department Care Team (Late st Contact Info) Description 08/11/2024 11:00 AM EDT Office Visit Ophthalmology, [facility] [address] [place] [phone] Quinton Will, [address] [place] [address] 09/23/2024 10:00 AM EDT Office Visit Pharmacy, [facility] [address] [place] [address] Garcia, [facility] [address] [place] [address] Scheduled Procedures Name Priority Associated Diagnoses Date/Ti [...] filedocumented as of this encounter Care Teams Manager Cancer Relationship Specialty Start Date End Date Charles Gonzales MD [address] [place] [address] PCP - General Family Medicine 08/24/21 documented as of this encounter
--- OUTSIDE RECORDS SUMMARY | 2024-08-13 06:10 | External Medical Summary | Summary of Care ---
Author Name Unknown Organization [facility] Address [address] [place] [address] Phone [phone] Care Team Providers Care Corrugator Supervisor Name Role Phone Charles Gonzales MD Primary Care Provider + Reason for Visit * Reason Onset Date Comments Other 08/10/2024 Encounter Details Date Type Department Care Team (Late st Contact Info) Description 08/10/2024 Telephone Pharmacy, [facility] [address] [place] [address] [facility] [address] [place] [address] Other Allergies No known active allergiesdocumented as of [...] 90 Tablet 3 02/15/20 24 Active Pen [place] 33G X 4 MM Use as directed. 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 Recommending following surgeron's instructions for diabetic medications for day of surgery. Recommending to decrease Lantus to 23 units daily to avoid overnight lows. Cassie Reyes, Pharm D, [facility] Clinical Pharmacist 08/10/2024, 11:15 AM * Telephone Encounter - Tania Hernandez CPhT - 08/10/2024 10:57 AM EDT Caller's name: Renu Preferred call back number(OFFICE NUMBER FOR ): [phone] Reason for call: Pt's is calling stating pt has a total hip replacement this (08/13/24). Surgeon wanted pt to reach out to [facility] clinic about blood sugar levels, he will not be allow to take his insulin the morning of surgery. She also stated his long lasting insulin will need adjusted "because he is bottoming out all night long". Thank you, Tania Hernandez CPhT Retail Business Analyst II [facility] 08/10/2024, 10:57 AM documented in this encounter Plan of Treatment Upcoming Encounters Date Type Department Care Team (Late st Contact Info) Description 08/11/2024 11:00 AM EDT Office Visit Ophthalmology, [facility] [address] [place] [phone] Quinton Will DO [address] [place] [address] 09/23/2024 10:00 AM EDT Office Visit Pharmacy, [facility] [address] [place] [address] [facility] [address] [place] [address] Scheduled Procedures Name Priority Associated Diagnoses Date/Ti [...] 02/09/2024 01/12/2024, 05/15/2020, 04/05/2020 HbA1c 01/20/2025 07/21/2024, 10/0 11/2023, 10/18/2023, Additional history exists Diabetic Eye Exam 06/25/2025 06/25/2024, , 08/19/2023, Additional history exists Albumin/Creatinine Ratio 07/10/2025 04/ 025, 04/22/2023, 07/31/2022, Additional history exists GFR [...] filedocumented as of this encounter Care Teams Corrugator Supervisor Relationship Specialty Start Date End Date Charles Gonzales MD [address] [place] [address] PCP - General Family Medicine 08/24/21 documented as of this encounter
--- OUTSIDE RECORDS SUMMARY | 2024-08-13 06:10 | External Medical Summary | Summary of Care ---
Author Name Unknown Organization [facility] Address [address] [place] [address] Phone [phone] Care Team Providers Care Central Office Repairer Supervisor Name Role Phone Charles Gonzales MD Primary Care Provider + Reason for Visit * Reason Onset Date Comments Appointment 08/10/2024 Encounter Details Date Type Department Care Team (Late st Contact Info) Description 08/10/2024 Telephone Ophthalmology, [facility] [address] [place] [address] Services, Scheduling [address] [place] [address] Appointment Allergies No known active allergiesdocumented as [...] 90 Tablet 3 02/15/20 24 Active Pen [place] 33G X 4 MM Use as directed. 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 Will. Pt agreeable to d/t. TAWNYA Garcia 08/10/2024 11:42 AM * Telephone Encounter - Ama Rm OSA - 08/10/2024 10:56 AM EDT IF ROUTINE APPOINTMENT DO NOT SEND TO DEPARTMENT SCHEDULE NEXT AVAILABLE APPOINTMENT AND OFFER [facility]ST[facility] Who is patient being scheduled with? Dr Will What is the reason the patient needs to be seen? Was scheduled for 08/20/2024 for injection- Return for 4-6wks. OCT OU //Avastin Is having hip replacement surgery on 08/13/2024 and not sure when he should be seen. Spouse knows there is a specific time frame but not sure what they are. When is the next available appointment? September [facility]: NOTIFY PATIENT: PLEASE ALLOW US UP TO 7 DAYS FOR A RESPONSE Retinal injections should not be scheduled further out than a week or two. Any appointment related messages , [place] [phone] If appointment needed 6 weeks or less, [place] as high priority. [facility]: NOTIFY PATIENT: DEPARTMENT WILL BE CALLING YOU SOON THEY REVIEW THE MESSAGE. PLEASE NOTE THIS COULD BE UP TO A WEEK Any appointment related messages ,[place] [phone] [facility] [place]: NOTIFY PATIENT: PLEASE ALLOW US UP TO 7 DAYS FOR A RESPONSE Appointment related concerns: Create and Send Telephone Encounter to Jaylon Garcia: [phone] [place]: P [phone] [place]: P [phone] documented in this encounter Plan of Treatment Upcoming Encounters Date Type Department Care Team (Late st Contact Info) Description 08/11/2024 11:00 AM EDT Office Visit Ophthalmology, [facility] [address] [place] [phone] Quinton Will DO [address] [place] [address] 09/23/2024 10:00 AM EDT Office Visit Pharmacy, [facility] [address] [place] [address] Jose [facility] [address] [place] [address] Scheduled Procedures Name Priority Associated Diagnoses Date/Ti [...] filedocumented as of this encounter Care Teams Central Office Repairer Supervisor Relationship Specialty Start Date End Date Charles Gonzales MD [address] [place] [address] PCP - General Family Medicine 08/24/21 documented as of this encounter
--- OUTSIDE RECORDS SUMMARY | 2024-08-13 06:10 | External Medical Summary | Summary of Care ---
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 DC INTRAVITREAL NJX PHARMACOLOGIC AGT SPX Quinton Will DO [address] [phone] Phone: tel: fax: Ophthalmology, [facility] [address] [phone] Phone: tel: fax: Referral ID Status Reason Start Date Expiration Date V isits Requested Visits Authorized [id number] Authorized Precert 07/02/2024 04/07/2099 [id number] Encounter Details Date Type Department Care Team (Late st Contact Info) Description 07/14/2024 9:00 AM EDT Office Visit Ophthalmology, [facility] [address] [place] [phone] Quinton Will DO [address] [phone] Moderate nonproliferative diabetic retinopathy of both eyes with macular edema associated with type 2 diabetes mellitus (HCC)* Allergies No known active allergiesdocumented as of this encounter (statuses as of 08/04/2024) Medications ONETOUCH LANCETS MISC Use to test [...] 90 Tablet 3 02/15/20 24 Active Pen Ladson 33G X 4 MM Use as directed. Use to inject insulin four times daily E11.9 400 Each 5 04/29/19 25 Active Ozempic (2 MG/DOSE) 8 MG/3ML Subcutaneous Solution Pen-injector (Semaglutide (2 MG/DOSE))Indicat ions:Type 2 diabetes mellitus with hemoglobin A1c goal of less than 7.0% (HCC) INJECT 2 MG SUBCUTANEOUSLY ONE TIME PER WEEK 3 mL 1 06/25/19 25 Active NovoLOG FlexPen 100 UNIT/ML Subcutaneous Solution Pen-injector (insulin aspart) Inject 5 Units under the skin in the morning and 5 Units at noon and 5 Units in the evening. Inject with meals. 15 mL 04/29/19 25 025 Discontin ued(Refil l) Insulin Glargine 100 UNIT/ML Subcutaneous Solution (Lantus) Inject 26 Units under the skin at bedtime. 10 mL 07/02/19 25 025 Discontin ued(Patie nt preferenc e/discont inuation) Hospital, Clinic, or Other Facility Administered Medication [...] as of this encounter (statuses as of 08/04/2024) Active Problems Problem Noted Date Diagnosed Date Diabetic peripheral neuropathy 04/23/2023 Moderate nonproliferative di abetic retinopathy of both eyes with macular edema associated with type 2 diabetes mellitus 04/22/2023 Type 2 diabetes mellitus wit h hemoglobin A1c goal of less than 7.0% 04/20/2015 Overview (08/02/2015): ICD-10 update of inactive term documented as of this encounter (statuses as of 08/04/2024) Resolved Problems Problem Noted Date Diagnosed Date Resolved Date Uncontrolled type 2 diabetes mellitus with hyperglycemia 09/08/2022 07/21/2024 Thoracic back pain 10/31/2015 8 Well adult exam 04/26/2014 07/10/2024 Overview (08/11/2023): 07/30 Stress echo WNL. 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 Follow up: Return for 4-6wks. OCT OU documented in this encounter Nursing Notes * Quinton Israel TECH - 07/14/2024 9:13 AM EDT Anthony Garcia Maliha Sr. to receive first Avastin 2.75 mg Injection of the Left eye. Correct eye confirmed with patient and marked by Quinton Will DO Avastin 2.75 mg lot # [id number] Exp. Date: 08/04/2024 * Quinton Israel TECH - 07/14/2024 9:05 AM EDT Anthony Garcia Maliha Paulino. is a 63 year old year old male who presents for Severe NPDR OU. Last Office Visit: Visit date not found (in office), Visit date not found (telemedicine) Patient currently states no change in vision. [...] 04/19/2015 08:[address]? yes NO images this visit just injection. documented in this encounter Plan of Treatment Upcoming Encounters Date Type Department Care Team (Late st Contact Info) Description 08/20/2024 7:30 AM EDT Office Visit Ophthalmology, [facility] [address] [phone] Quinton Will DO [address] [address] Nurse Jeffery Rangel [address] [phone] Photographer Jaylon Rangel [address] [phone] 09/23/2024 10:00 AM EDT Office Visit Pharmacy, [facility] [address] [phone] [facility] [address] [phone] Scheduled Procedures Name Priority Associated Diagnoses Date/Ti [...] 02/09/2024 01/12/2024, 05/15/2020, 04/05/2020 HbA1c 01/20/2025 07/21/2024, 1011/2023, 10/18/2023, Additional history exists Diabetic Eye Exam 06/25/2025 06/25/2024, , 08/19/2023, Additional history exists Albumin/Creatinine Ratio 07/10/2025 04/2 025, 04/22/2023, 07/31/2022, Additional history exists GFR [...] as of this encounter Visit Diagnoses Diagnosis Moderate nonproliferative diabetic retinopathy of both eyes with [...] with type 2 diabetes mellitus (HCC) Given 07/14/2024 9:16 AM EDT 2.75 mg Eye Left Given 07/01/2024 1:25 PM EDT 2.75 mg Ey e Right ROPivacaine (Naropin) inj 1.5 mg 1.5 mg, Injection, PRN Other, Starting on Sat07/01/24 at 1235, Until Courtney 07/01/25 at 1234, For 365 daysIndications: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 associated with type 2 diabetes mellitus (HCC) Given 07/14/2024 9:16 AM EDT 1.5 mg Eye Left Given 07/01/2024 1:24 PM EDT 1.5 mg Ey e Right documented in this encounter Care Teams Instructor Physical Education Relationship Specialty Start Date End Date Charles Gonzales MD [address] [phone] PCP - General Family Medicine 08/24/21 documented as of this encounter
--- OUTSIDE RECORDS SUMMARY | 2024-08-13 06:10 | External Medical Summary | Summary of Care ---
Author Name Unknown Organization [facility] Address [address] [place] [address] Phone [phone] Care Team Providers Care Assistant Merchandise Manager Name Role Phone Charles Gonzales MD Primary Care Provider + Encounter Details Date Type Department Care Team (Late st Contact Info) Description 08/05/2024 Orders Only Family Practice [facility] [address] [place] [address] Charles Gonzales MD [address] [place] [address] Allergies No known active allergiesdocumented as of this encounter (statuses as of 08/05/2024) Medications ONETOUCH LANCETS MISC Use to test [...] 90 Tablet 3 02/15/20 24 Active Pen Bristol 33G X 4 MM Use as directed. Use to inject insulin four times daily E11.9 400 Each 5 04/29/19 25 Active Ozempic (2 MG/DOSE) 8 MG/3ML Subcutaneous Solution Pen-injector (Semaglutide (2 MG/DOSE))Indicat ions:Type 2 diabetes mellitus with hemoglobin A1c goal of less than 7.0% ([facility]) INJECT 2 MG SUBCUTANEOUSLY ONE [...] as of this encounter (statuses as of 08/05/2024) Active Problems Problem Noted Date Diagnosed Date [...] as of this encounter (statuses as of 08/05/2024) Resolved Problems Problem Noted Date Diagnosed Date Resolved Date Uncontrolled type 2 diabetes mellitus with hyperglycemia 09/08/2022 07/21/2024 Thoracic back pain 10/31/2015 8 Well adult exam 04/26/2014 07/10/2024 Overview (08/11/2023): 07/30 Stress echo WNL. 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 Not on file Not on file No t on file documented as of this encounter Plan of Treatment Upcoming Encounters Date Type Department Care Team (Late st Contact Info) Description 08/20/2024 7:30 AM EDT Office Visit Ophthalmology, [facility] [address] [phone] Quinton Will DO [address] [phone] [place] Nurse Jeffery Iyer [address] [place] [phone] [place] Certified Hyperbaric Technician Jaylon [address] [phone] 09/23/2024 10:00 AM EDT Office Visit Pharmacy, [facility] [address] [phone] [facility]lon [address] [place] [phone] Scheduled Procedures Name Priority Associated Diagnoses Date/Ti [...] Procedure Name Priority Date/Time Associated Diagnosis Comments XR CHEST 2 VIEWS Routine 08/03/2024 CHEMISTRY-OUTSIDE Routine 07/13/2024 documented in this encounter Results * XR CHEST 2 VIEWS (08/03/2024) Anatomical Region Laterality Modality Chest Other 08/03/2024 us Mary Ann Melgoza PA-C RADIOLOGY (RAD GENERAL) Fi nal Result * CHEMISTRY-OUTSIDE (07/13/2024) Not all results display below - see scan for full detail OUTSIDE LAB (SEE SCANNED REPORT) Comment:SCAN INCLUDES - CBCD CREATININE OUTSIDE L AB (SEE SCANNED REPORT) EGFR OUTSIDE LA B (SEE SCANNED REPORT) POTASSIUM OUTSIDE LA B (SEE SCANNED REPORT) GLUCOSE OUTSIDE LA B (SEE SCANNED REPORT) HOURS FASTING OUTSID E LAB (SEE SCANNED REPORT) TRIGLYCERIDES-OUT SIDE LAB OUTSIDE LAB (SEE SCANNED REPORT) CHOLESTEROL-OUTSI DE LAB OUTSIDE LAB (SEE SCANNED REPORT) HDL-OUTSIDE LAB OUTS YUVAL LAB (SEE SCANNED REPORT) CHOL/HDL RATIO-OUTSIDE LAB OUTSIDE LA B (SEE SCANNED REPORT) LDL (CALCULATED)-OUTS YUVAL LAB OUTSIDE LAB (SEE SCANNED REPORT) LDL (DIRECT MEASURE)-OUTSIDE LAB OUTSIDE LAB (SEE SCANNED REPORT) HEMOGLOBIN, U0H-PHVBQNI LAB OUTSIDE LAB (SEE SCANNED REPORT) PHOSPHORUS-OUTSID E LAB OUTSIDE LAB (SEE SCANNED REPORT) PTH-OUTSIDE LAB OUTS YUVAL LAB (SEE SCANNED REPORT) MICROALBUMIN RATIO-OUTSIDE LAB OUTSIDE LA B (SEE SCANNED REPORT) PROTEIN, UA-OUTSIDE LAB OUTSIDE LAB (SEE SCANNED REPORT) HGB 14.6 14.0 - 18.0 G/DL OUTSIDE LAB (SEE SCANNED REPORT) 07/13/2024 us Rony Mancuso MD LABORATORY Final Re sult OUTSIDE LAB (SEE SCANNED REPORT) documented in this encounter Care Teams Assistant Merchandise Manager Relationship Specialty Start Date End Date Charles Gonzales MD [address] [place] [phone] PCP - General Family Medicine 08/24/21 documented as of this encounter
[2024-08-13] MEDS ORDERED: MEPIVACAINE HCL 1.5% 30 ML VIAL ONE (06:29)
--- NOTE | 2024-08-13 06:44 | History & Physical Bridge Note ---
Date of Service August 13, 2024 History & Physical Bridge Note I have examined the patient, reviewed the History & Physical and in the interval since the performance of the History & Physical I have noted the following changes of clinical significance: no changes noted
[2024-08-13] MEDS ORDERED: MIDAZOLAM HCL 1 MG/ML 2ML VIAL ONE (06:47)
[2024-08-13] MEDS ORDERED: fentaNYL citrate PF 100 MCG/2 ML VIAL ONE (06:48)
[2024-08-13] MEDS ORDERED: PROPOFOL IV EMULSION 10 MG/ML 100 ML VIAL IV ONE (06:49)
[2024-08-13] MEDS ORDERED: LIDOCAINE 2% 2 ML VIAL/AMP(20MG/ML) INFIL ONE (06:50)
[2024-08-13] MEDS: TRANEXAMIC ACID 1,000 MG **IV Pre-op IV SCH (06:58)
[2024-08-13] MEDS: ceFAZolin 2000MG 2,000 MG/15 ML SYR IV SCH ×3 (07:06→18:54)
[2024-08-13] MEDS ORDERED: PROPOFOL IV EMULSION 10 MG/ML 20 ML VIAL IV ONE (07:19)
[2024-08-13] MEDS ORDERED: PHENYLEPHRINE HCL 10 MG/ML VIAL ONE (07:19)
[2024-08-13] MEDS ORDERED: ONDANSETRON INJ 2 MG/ML 2 ML VIAL ONE (07:29)
[2024-08-13] MEDS: ORTHO JOINT ANESTHETIC ONE (07:35)
[2024-08-13] MEDS ORDERED: ONDANSETRON INJ 2 MG/ML 2 ML VIAL IV PRN ×2 (07:50→17:46)
[2024-08-13] MEDS ORDERED: fentaNYL citrate PF 100 MCG/2 ML VIAL IV PRN (07:50)
[2024-08-13] MEDS ORDERED: ePHEDrine sulfate 50 MG/ML AMP IV PRN (07:50)
[2024-08-13] MEDS ORDERED: ATROPINE SULFATE 0.1 MG/ML 10ML SYR IV PRN (07:50)
[2024-08-13] MEDS ORDERED: PROMETHAZINE HCL 6.25 MG in SODIUM CHLORIDE 0.9% 50 ML IV PRN (07:50)
[2024-08-13] MEDS: TRANEXAMIC ACID 1,000 MG **IV Intra-op IV SCH (08:26)
[2024-08-13] MEDS: ROPIVACAINE 0.5% HCL/PF 246 MG, Ketorolac (*for OR use only*) 30 MG, EPINEPHrine 30MG/3... INFIL SCH (08:27)
[2024-08-13] MEDS ORDERED: PHENYLEPHRINE 100MCG/ML 5ML SYR ONE (08:42)
--- NOTE | 2024-08-13 09:04 | Operative Report ---
Post Operative Report Pre & Post Diagnosis Operation Date: 08/13/24 07:00 Pre-Op Diagnosis: Osteoarthritis of left hip Post-Op Diagnosis: Osteoarthritis of left hip I identified the patient and participated in the time-out.: Yes Procedure Operation Date: 08/13/24 07:00 Actual Procedures p Left Total Hip Arthroplasty(Left) - Charles Guerra MD Surgeon Charles Guerra MD Brush Machine Setter Holden Graham PA-C. No resident or fellow was available to assist. Estimated Blood Loss 100 Findings Consistent with Post-Op Diagnosis Specimens Left femoral head Anesthesia Type Spinal MAC Complications none Disposition Disposition: Recovery Room Indications 63-year-old male, with severe left hip osteoarthritis refractory to conservative management. X-rays demonstrate complete joint space loss and marginal osteophytes. Hip is extremely stiff on physical examination with an abduction contracture. I had a long discussion with him about his diagnosis and treatment options. After reviewing the risks and benefits of surgery, alternatives to surgery, and expected outcomes of surgery he elected to proceed with surgery. All questions were answered. Informed consent was signed. Description of Procedure Patient was identified in the preoperative holding area where the surgical site, left hip, was marked. A spinal anesthetic was placed, then the patient was brought back to the main operating room, placed in the operating table and moved into the lateral decubitus position. Axillary roll was placed. All bony prominences were padded. Perioperative antibiotics and tranexamic acid 1 gram IV were administered. The operative extremity was prepped and draped in the normal sterile fashion. Prior to incision a multidisciplinary timeout was called. All in the room were in agreement. We began by making an incision for a posterior approach to the hip. We dissected down through subcutaneous tissues to the level of the fascia. The fascia was incised in line with the incision. Charnley bow was placed. Fatty tissue was reflected posteriorly off the back of the greater trochanter to expose the piriformis and short external rotators of the hip. Quadratus femoris was taken off the femur subperiosteally. The piriformis and short external rotators were dissected off the posterior aspect of the hip. A box cut was made in the capsule. Inferior hip capsule was released off the femur. The femoral head was dislocated. The femoral neck cut was made at our preoperative template. The acetabulum was then exposed. The labrum was sharply excised. Contents of the cotyloid fossa were removed with electrocautery. We then began reaming at a size 8 mm less than our preoperative template. We reamed up by 1 [address] the way up to a size 56 mm cup. This gave us good bleeding cancellus bone circumferentially. The acetabulum was then irrigated out and dried. The real Buffalo Gription cup was then impacted down into position with 45 degrees of lateral opening and 25 degrees of anteversion. Two cancellous bone screws were placed up into the ilium. Excellent fixation was obtained. A trial liner for a 36 mm femoral head was then placed. Next we turned our attention to the femur. The lateral neck was removed with a box osteotome. Intramedullary guide was used to establish the intramedullary canal. We then broached all the way up to a size 6. We began trialing with a standard offset neck and a +1.5 head. Hip was reduced. Leg lengths were symmetric. The hip was stable in extension and external rotation, and stable in the sleeper position. At 90 degrees of hip flexion the hip could be internally rotated 40 degrees before levering out of the cup. I wanted to get a little bit better stability, therefore I trialed a high offset neck but was unable to reduce the hip. Also tried a +4 face changing liner but could not reduce the hip. Therefore elected to use a dual mobility component. With this trial in place I was now able to internally rotate him 55 degrees before levering out of the cup. The remainder of his stability exam was unchanged which I was happy with. Hip was dislocated and the femoral trial was removed. The acetabulum was re-exposed, and the trial liner was removed. [place] hole eliminator screw was placed. The the metal shell for the dual mobility liner was placed. The femur was re-exposed. The femoral canal was irrigated and dried. The real Actis femoral stem was opened up. This was impacted down into position. The femoral head was opened up and gently impacted down onto the trunnion. The hip was atraumatically reduced. Another 1 gram of IV tranexamic acid was started prior to closure. The wound was irrigated out with sterile Betadine solution. The periarticular injection cocktail was then placed. The short external rotators, piriformis, and posterior capsule were repaired through drill holes in the greater trochanter using #2 Vicryl. The fascia was run with a looped #1 PDS. The subcutaneous layer was closed with #1 PDS. The dermal layer was closed with 2-0 Vicryl. Zip line was used for the skin followed by a Silverlon dressing. A compressive dressing was then placed. The patient was then rolled supine. Leg lengths were rechecked and were symmetric. An abduction pillow was placed. Sedation was lifted and the patient was transferred to the recovery room in stable condition. Summary of implants: Depuy Buffalo Gription Acetabular Shell Sector Cup, 56 mm outer diameter 2 [place] Cancellous bone screws, 6.5 x 40 and 6.5 x 20 mm [place] hole eliminator 56/49 dual mobility liner DePuy Actis collared cementless Femoral stem, 12/14 taper, size 6 standard offset 49/28 Altrex polyethylene dual mobility outer head 28 mm ceramic inner femoral head with +1.5 offset Postoperative course: Patient will be discharged home from the recovery room once he passes the safety checklist. Patient will be weightbearing as tolerated with posterior hip precautions. Aspirin for DVT prophylaxis I attest to the content of the Intraoperative Record and any orders documented therein. Any exceptions are noted below.
--- NOTE | 2024-08-13 09:16 | Operative Report ---
Post Operative Report Pre & Post Diagnosis Operation Date: 08/13/24 07:00 Pre-Op Diagnosis: Osteoarthritis of left hip Post-Op Diagnosis: Osteoarthritis of left hip I identified the patient and participated in the time-out.: Yes Procedure Operation Date: 08/13/24 07:00 Actual Procedures p Left Total Hip Arthroplasty(Left) - Charles Guerra MD Surgeon Charles Guerra MD Mobile Home Technician Holden Graham PA-C. No resident or fellow was available to assist. Estimated Blood Loss 100 Findings Consistent with Post-Op Diagnosis Specimens Femoral head Description of Procedure I was present for the entire case. I assisted with patient positioning, prepping, draping, retraction, suctioning, wound closure, dressing application. Please refer to Dr. Guerra's procedure note for full details. Patient planning for same-day discharge. Did confirm with Dr. Guerra he would like the patient to take diclofenac outpatient. I attest to the content of the Intraoperative Record and any orders documented therein. Any exceptions are noted below.
--- NOTE | 2024-08-13 09:28 | XRay Report ---
XR pelvis 1-2V routine CLINICAL HISTORY: Post Surgical COMPARISON: 08/03/2024 FINDINGS: Left hip prosthesis shows no hardware complication. There is expected soft tissue gas. IMPRESSION: Unremarkable postoperative exam. ACT 112: Negative or not required by law. Electronically signed by: Terry Marques M.D. 08/13/2024 9:26 AM
[2024-08-13] MEDS ORDERED: KETAMINE HCL 10MG/ML SYR ONE (09:54)
--- NOTE | 2024-08-13 10:15 | Anesthesiology Progress Note ---
Date of Service August 13, 2024 Anesthesia Post Procedure Vital Signs Vital Signs: Temp Pulse Resp BP BP Pulse Ox O2 Del Method 08/13/24 09:50 36.4 C L 81 15 102/60 93 Room Air 08/13/24 09:40 79 14 108/56 L 93 Room Air 08/13/24 09:30 81 13 114/59 L 95 Room Air 08/13/24 09:20 81 14 108/61 94 Room Air 08/13/24 09:10 82 16 106/59 L 99 Oxymask 08/13/24 09:04 36.4 C L 78 16 101/58 L 99 Oxymask 08/13/24 05:42 36.8 C 91 H 20 160/88 H 98 Room Air O2 Flow Rate 08/13/24 09:50 08/13/24 09:40 08/13/24 09:30 08/13/24 09:20 08/13/24 09:10 6 08/13/24 09:04 6 08/13/24 05:42 Pain Intensity Left Hip: Pain Intensity: 0 Transfer of Care Handoff Completed per policy Notes Mental Status: alert / awake / arousable Patient Amnestic to Procedure: Yes Nausea / Vomiting: adequately controlled Pain: adequately controlled Airway Patency, RR, SpO2: stable & adequate BP & HR: stable & adequate Hydration State: stable & adequate Neuraxial Anesthesia: was administered and sensory block is resolving Anesthetic Complications: no major complications apparent and Pt Satisfied with anesthetic care
[2024-08-13] MEDS: oxyCODONE/ACETAMINOPHEN 5mg/325mg TAB PO PRN (10:39)
[2024-08-13] MEDS: MoRPHine SULFATE 2 MG/ML CARP IV PRN (11:20)
[2024-08-13] MEDS ORDERED: HYDROmorphone INJ 0.5 MG/0.5 ML SYR IV PRN (17:46)
[2024-08-13] MEDS ORDERED: NALOXONE HCL 0.4 MG/1 ML VIAL/CARP IV PRN (17:46)
[2024-08-13] MEDS ORDERED: TAMSULOSIN HCL 0.4 MG CAP PO PRN (17:46)
[2024-08-13] MEDS ORDERED: MAGNESIUM HYDROXIDE SUSP 30 ML UDC PO PRN (17:46)
[2024-08-13] MEDS ORDERED: bisacodyL 10 MG SUPP PR PRN (17:46)
[2024-08-13] MEDS ORDERED: diphenhydrAMINE Capsule 25 MG CAP PO PRN (17:46)
--- NOTE | 2024-08-13 17:59 | Consultation ---
Date of Consultation August 13, 2024 History of Present Illness Requesting Physician: Charles Guerra MD Reason for Consultation: post op medical management Attending Physician: Charles Guerra MD History of Present Illness 63 year old male with PMH significant for DMII, hypertension, hyperlipidemia, CRI, and Allergies Allergy/AdvReac Type Severity Reaction Status Date / Time NSAIDS (Non-Steroidal AdvReac Intermediate acute Verified 08/13/24 05:35 Anti-Inflamma renal insufficiency Home Medications Medication Instructions Recorded Confirmed Type atorvastatin 40 mg tablet (Lipitor) 40 mg PO QAM 10/15/23 08/13/24 History empagliflozin 25 mg tablet 25 mg PO QAM 10/15/23 08/13/24 History (Jardiance) insulin aspart U-100 100 unit/mL 8 unit subcut TIDM 07/12/24 08/13/24 History (3 mL) subcutaneous pen (Novolog FlexPen U-100 Insulin aspart) insulin glargine 100 unit/mL (3 32 unit subcut HS 07/12/24 08/13/24 History mL) subcutaneous pen (Lantus Solostar U-100 Insulin) semaglutide 2 mg/dose (8 mg/3 mL) 2 mg subcut WK 07/12/24 08/13/24 History subcutaneous pen injector (Ozempic) amlodipine 5 mg tablet (Norvasc) 5 mg PO QAM #30 tabs 07/13/24 08/13/24 Rx famotidine 10 mg tablet (Acid 10 mg PO BID PRN heartburn #30 tabs 07/13/24 08/13/24 Rx Branch Operations Specialist (famotidine)) oxycodone 5 mg tablet 5 mg PO QID PRN pain #12 tabs 07/13/24 08/13/24 Rx gabapentin 100 mg capsule 100 mg PO TID 07/31/24 08/13/24 History losartan 25 mg tablet 25 mg PO QAM 07/31/24 08/13/24 History Patient History Medical History Hx of heartburn Hyperlipidemia Hypertension controlled, stable per pt: 112/60 home reading Acute kidney injury early July 2024 after taking higher doses of NSAIDS due to hip pain, evaluated at [facility] emergency room due to the severe pain in his left hip. pt unsure of any other details. History of COVID-19 (~2020) ~2020: asymptomatic. Diabetes mellitus, type 2 IDDM Osteoarthritis Surgical History History of colonoscopy H/O umbilical hernia repair Family History Other No pertinent family history in first degree relatives Social History Smoking Status: Never smoker Second Hand Exposure: No; Do You Dip or Chew Tobacco: No; Tobacco Cessation Education Requested by Patient: No Hx Alcohol Use: Yes Alcohol type: beer Hx Substance Use: No Preferred Language: Estonian Communication Ability: Effective Reconciliation Coordinator Required: No Beliefs That Will Affect Care: None Current Living Situation: Spouse Other Information That Helps Us Care for You: No Feels Safe at Home: Yes Safety Concerns: Feels Safe At This Time Assistive Devices: Glasses Results & Data Vital Signs (Past 12 Hours) Vital Signs Temp Pulse Pulse Resp BP Pulse Ox O2 Del Method 08/13/24 17:36 36.5 C 89 18 129/74 97 Room Air 08/13/24 16:50 82 18 118/88 98 Room Air 08/13/24 13:56 84 20 124/62 97 Room Air 08/13/24 12:56 80 20 128/65 96 Room Air 08/13/24 11:56 80 20 110/59 L 100 Room Air 08/13/24 10:56 78 18 129/68 100 Room Air 08/13/24 10:26 77 20 126/77 100 Room Air 08/13/24 09:56 36.5 C 81 16 98/65 L 94 Room Air 08/13/24 09:50 36.4 C L 81 15 102/60 93 Room Air 08/13/24 09:40 79 14 108/56 L 93 Room Air 08/13/24 09:30 81 13 114/59 L 95 Room Air 08/13/24 09:20 81 14 108/61 94 Room Air 08/13/24 09:10 82 16 106/59 L 99 Oxymask 08/13/24 09:04 36.4 C L 78 16 101/58 L 99 Oxymask O2 Flow Rate 08/13/24 17:36 08/13/24 16:50 08/13/24 13:56 08/13/24 12:56 08/13/24 11:56 08/13/24 10:56 08/13/24 10:26 08/13/24 09:56 08/13/24 09:50 08/13/24 09:40 08/13/24 09:30 08/13/24 09:20 08/13/24 09:10 6 08/13/24 09:04 6
[2024-08-13] MEDS: Scopolamine CHECK PATCH PLACEMENT SCH (18:15)
[2024-08-13] MEDS: SODIUM CHLORIDE 0.9% 1,000 ML IV SCH (18:21)
[2024-08-13] MEDS ORDERED: GLUCOSE 10 TAB/TUBE PO PRN (18:40)
[2024-08-13] MEDS ORDERED: DEXTROSE 50% 50 ML SYRINGE IV PRN (18:40)
[2024-08-13] MEDS ORDERED: GLUCOSE 40% GEL 15 GM TUBE PO PRN (18:40)
[2024-08-13] MEDS ORDERED: GLUCAGON FOR INJ 1 MG VIAL SQ PRN (18:40)
[2024-08-13] MEDS ORDERED: CARBOHYDRATES FOR HYPOGLYCEMIA PO PRN (18:40)
--- NOTE | 2024-08-13 18:44 | Hospitalist Consultation ---
Date of Consultation August 13, 2024 Assessment & Plan (1) S/P total left hip arthroplasty: POD#[address] Guerra Activity and wound care orders as per ortho Pain control with bowel regimen PT/OT Monitor H/H for acute blood loss anemia and transfuse blood products PRN EBL 100cc (2) Orthostatic hypotension: + orthostatic hypotension post op BP currently stable Will hold [employer] amlodipine, losartan for now Monitor orthostatic BPs q shift (3) Diabetes mellitus, type 2: Hgb A1c 7.10/2024 Continue home dose Lantus 32u and add Novolog per protocol (4) Hyperlipidemia: Continue [employer] statin DVT PROPHYLAXIS ASA 81 mg twice daily as per Ortho Patient seen in collaboration with Dr. Chávez. Thank you for this consultation. We will follow the patient with you during their hospital stay. You can reach a member of the [facility] Hospitalist Team 29/10 via the [facility] Hospitalist role in [place] Text. Supervising Physician Co-Signing Physician Notes Patient evaluated Agree with plans as detailed by Alana OSULLIVAN History of Present Illness Reason for Consultation: Postop medical management Requesting Physician: Dr. Guerra Attending Physician: Charles Guerra MD History of Present Illness 63-year-old male with PMH HTN, DM type II, HLD, and other problems listed below who is s/p left ELIAS today by Dr. Guerra. Patient was experiencing orthostatic hypotension postoperatively and is being admitted for observation overnight. Patient seen in room 388. Reports he is feeling well, pain is currently well-controlled. No numbness or tingling of the left leg. Reports that he was asymptomatic when his blood pressure was dropping with standing. Denies chest pain and shortness of breath. No lightheadedness or dizziness. Denies abdominal pain and nausea. Allergies Allergy/AdvReac Type Severity Reaction Status Date / Time NSAIDS (Non-Steroidal AdvReac Intermediate acute Verified 08/13/24 05:35 Anti-Inflamma renal insufficiency Home Medications Medication Instructions Recorded Confirmed Type atorvastatin 40 mg tablet (Lipitor) 40 mg PO QAM 10/15/23 08/13/24 History empagliflozin 25 mg tablet 25 mg PO QAM 10/15/23 08/13/24 History (Jardiance) insulin aspart U-100 100 unit/mL 8 unit subcut TIDM 07/12/24 08/13/24 History (3 mL) subcutaneous pen (Novolog FlexPen U-100 Insulin aspart) insulin glargine 100 unit/mL (3 32 unit subcut HS 07/12/24 08/13/24 History mL) subcutaneous pen (Lantus Solostar U-100 Insulin) semaglutide 2 mg/dose (8 mg/3 mL) 2 mg subcut WK 07/12/24 08/13/24 History subcutaneous pen injector (Ozempic) amlodipine 5 mg tablet (Norvasc) 5 mg PO QAM #30 tabs 07/13/24 08/13/24 Rx famotidine 10 mg tablet (Acid 10 mg PO BID PRN heartburn #30 tabs 07/13/24 08/13/24 Rx Heel Seat Trimmer (famotidine)) oxycodone 5 mg tablet 5 mg PO QID PRN pain #12 tabs 07/13/24 08/13/24 Rx gabapentin 100 mg capsule 100 mg PO TID 07/31/24 08/13/24 History losartan 25 mg tablet 25 mg PO QAM 07/31/24 08/13/24 History Patient History Medical History Hx of heartburn Hyperlipidemia Hypertension controlled, stable per pt: 112/60 home reading Acute kidney injury early July 2024 after taking higher doses of NSAIDS due to hip pain, evalu ated at [facility] emergency room due to the severe pain in his left hip. pt unsure of any other details. History of COVID-19 (~2020) ~2020: asymptomatic. 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 Equipment Inspector Required: No Beliefs That Will Affect Care: None Current Living Situation: Spouse Other Information That Helps Us Care for You: No Feels Safe at Home: Yes Safety Concerns: Feels Safe At This Time Assistive Devices: Glasses Physical Exam Constitutional: WD/WN, vitals as above no acute distress Respiratory: normal respiratory effort, lungs clear to auscultation Cardiovascular: Rate/Rhythm: regular rate and regular rhythm Vessels: normal peripheral pulses Extremities: no edema Gastrointestinal (Abdomen): normal bowel sounds, soft, nontender, no hepatosplenomegaly Musculoskeletal: S/p left hip surgery, dressing CDI, CSM checks intact LLE Skin: no rashes, warm and dry Neurologic: no focal motor deficits Psychiatric: A+Ox3, euthymic affect Results & Data Results & Data Vital Signs (Past 12 Hours) Vital Signs Temp Pulse Pulse Resp BP Pulse Ox O2 Del Method 08/13/24 17:36 36.5 C 89 18 129/74 97 Room Air 08/13/24 16:50 82 18 118/88 98 Room Air 08/13/24 13:56 84 20 124/62 97 Room Air 08/13/24 12:56 80 20 128/65 96 Room Air 08/13/24 11:56 80 20 110/59 L 100 Room Air 08/13/24 10:56 78 18 129/68 100 Room Air 08/13/24 10:26 77 20 126/77 100 Room Air 08/13/24 09:56 36.5 C 81 16 98/65 L 94 Room Air 08/13/24 09:50 36.4 C L 81 15 102/60 93 Room Air 08/13/24 09:40 79 14 108/56 L 93 Room Air 08/13/24 09:30 81 13 114/59 L 95 Room Air 08/13/24 09:20 81 14 108/61 94 Room Air 08/13/24 09:10 82 16 106/59 L 99 Oxymask 08/13/24 09:04 36.4 C L 78 16 101/58 L 99 Oxymask O2 Flow Rate 08/13/24 17:36 08/13/24 16:50 08/13/24 13:56 08/13/24 12:56 08/13/24 11:56 08/13/24 10:56 08/13/24 10:26 08/13/24 09:56 08/13/24 09:50 08/13/24 09:40 08/13/24 09:30 08/13/24 09:20 08/13/24 09:10 6 08/13/24 09:04 6 Laboratory Results Laboratory Results POC Glucose 261 mg/dl (70-99) H 08/13/24 17:43 Impressions Pelvis X-Ray 08/13/24 09:08 XR pelvis 1-2V routine CLINICAL HISTORY: Post Surgical COMPARISON: 08/03/2024 FINDINGS: Left hip prosthesis shows no hardware complication. There is expected soft tissue gas. IMPRESSION: Unremarkable postoperative exam. ACT 112: Negative or not required by law. Electronically signed by: Terry Marques M.D. 08/13/2024 9:26 AM Diagnostic Findings Pelvis X-Ray 08/13/24 09:08 XR pelvis 1-2V routine CLINICAL HISTORY: Post Surgical COMPARISON: 08/03/2024 FINDINGS: Left hip prosthesis shows no hardware complication. There is expected soft tissue gas.
[2024-08-13] MEDS: LANTUS PER UNIT CHARGE SQ SCH (19:45)
[2024-08-13] MEDS: METOCLOPRAMIDE HCL INJ 5 MG/ML 2 ML VIAL IV PRN (21:10)
[2024-08-13] MEDS: INSULIN ASPART PER UNIT CHARGE SC SCH (21:11)
[2024-08-13] MEDS: ALUMINUM/MAGNESIUM SUSP 30 ML UDC PO PRN (21:11)
[2024-08-13] MEDS: SENNA 8.6 MG TAB PO SCH (21:11)
[2024-08-13] MEDS: GABAPENTIN 100 MG CAP PO SCH (21:11)
[2024-08-13] MEDS: DOCUSATE SODIUM 100 MG CAP PO SCH (21:11)
[2024-08-14] MEDS: INSULIN ASPART PER UNIT CHARGE SC STA (00:22)
[2024-08-14 07:52] LABS: Basophils # (auto) 0.04 K/uL (0.00-0.20); Basophils % (auto) 0.4 %; Eosinophils # (auto) 0.04 K/uL (0.00-0.50); Eosinophils % (auto) 0.4 %; Hematocrit (blood only) 37.8 % (42.0-52.0); Hemoglobin 12.6 g/dl (14.0-18.0); Immature Granulocytes # (auto) 0.03 K/uL (0.01-0.20); Immature Granulocytes % (auto) 0.3 %; Lymphocytes # (auto) 0.91 K/uL (1.20-3.40); Lymphocytes % (auto) 8.2 %; Mean Corpuscular Hemoglobin 30.3 pg (25.0-34.0); Mean Corpuscular Hgb Conc 33.3 g/dL (32.0-36.0); Mean Corpuscular Volume 90.9 fL (80.0-100.0); Mean Platelet Volume 9.6 fL (9.4-12.4); Monocytes # (auto) 1.25 K/uL (0.11-0.59); Monocytes % (auto) 11.3 %; Neutrophils # (auto) 8.78 K/uL (1.40-6.50); Neutrophils % (auto) 79.4 %; Platelet Count 169 K/uL (130-400); RDW Coefficient of Variation 13.8 % (11.5-14.5); RDW Standard Deviation 46.4 fL (36.4-46.3); Red Blood Count 4.16 M/uL (4.70-6.10); White Blood Count 11.05 K/ul (4.8-10.8)
[2024-08-14 07:55] VITALS: BP 132/84; PULSE 88; RESP 17; TEMP 98.1; O2SAT 97
[2024-08-14 08:07] LABS: BUN Creatinine Ratio 21.9 (10-20); Calcium 8.3 mg/dl (8.6-10.3); Creatinine Clr Calc Pharmacy 52.4 ml/min; Potassium 4.6 mmol/L (3.5-5.1)
[2024-08-14] MEDS: ATORVASTATIN 40 MG TAB PO SCH (08:38)
[2024-08-14] MEDS: dexAMETHasone 10 MG in SYRINGE 0 ML IV SCH (08:38)
[2024-08-14] MEDS: ASPIRIN 81 MG ECTAB PO SCH (08:38)
[2024-08-14] MEDS: MULTIVITAMIN TAB PO SCH (08:38)
[2024-08-14] MEDS ORDERED: amLODIPine BESYLATE 5 MG TAB PO SCH (09:00)
[2024-08-14] MEDS ORDERED: LOSARTAN POTASSIUM 25 MG TAB PO SCH (09:00)
[2024-08-14] MEDS: LACTATED RINGER'S 500 ML IV ONE (10:27)
--- NOTE | 2024-08-14 11:39 | Orthopedic Progress Note ---
Date of Service August 14, 2024 Assessment & Plan (1) S/P total left hip arthroplasty: Plan: Postop day #1 status post left total hip arthroplasty with Dr. Guerra. Patient had been planning same-day surgery/discharge postop day 0 however he had some orthostatic hypotension and ended up being admitted to the hospital overnight. The hospitalist was consulted to manage his diabetes and orthostatic hypotension, appreciate their consult and management. Communicated with Dr. Aviles who is comfortable with the patient being discharged today. Patient seems to be doing much better today. He was able to ambulate with physical therapy did not have any lightheadedness or symptoms consistent with orthostatic hypotension. His vitals are stable today. His outer bulky dressing was removed and the dressing is clean, dry, intact. Postop labs show minimal leukocytosis at 11.05 likely secondary to surgery and steroids. Hemoglobin 12.6 likely secondary to acute blood loss anemia from surgery. Creatinine clearance is stable at 52.4. Minimal hypocalcemia 8.3. Postop x-ray showed stable implant with no concerning findings. Patient feels well enough to be discharged today pending Occupational Therapy evaluation. Since he received 24 hours of Ancef in the hospital, advised him that he does not need to take the Keflex that had previously been prescribed when he was planning to be discharged postop day 0. He will use Tylenol, diclofenac, and oxycodone for pain management. Creatinine clearance stable today at 52.4. Confirmed with Dr. Guerra he is comfortable with the patient taking diclofenac outpatient. We discussed wound care. He will leave the silverlon dressing in place, can shower as long as the dressing is intact. Do not submerge wound underwater. Aspirin 81 mg twice daily for DVT prophylaxis for 4 weeks. Weightbearing as tolerated with a walker. He will participate with home health/physical therapy for the first 2 weeks, then has outpatient physical therapy scheduled. We reviewed posterior hip precautions. He has the abduction pillow and was instructed on use. He was instructed to contact our office with any questions or concerns or if he needs a medication refill. All questions were answered. Plan will be to discharge patient pending Occupational Therapy clearance. Admission and Anticipated Discharge Date Admission Date: August 13, 2024 Violeta Cruz is seen in bed today, accompanied by his . He states that he is doing much better than yesterday. Pain is now better controlled and he amb ulated with physical therapy and did not have any lightheadedness. He did have a bit of nausea and vomiting around midnight overnight which his attributes to elevated blood sugars, but he was able to eat breakfast this morning and did not have any nausea or vomiting. His blood glucose is now 195 per his CGM. He denies any chest pain or shortness of breath, numbness or tingling in his left lower extremity. He still has some pain when bearing weight on the left hip, but states it is manageable. Physical Exam Constitutional: Resting comfortably in bed. Pleasant. In no distress. Cardiovascular: Left DP pulse 2+ Musculoskeletal: Left lower extremity: Bulky dressing taken down. The silverlon dressing is clean, dry, intact. There is no drainage through the window of the dressing. The surrounding tissue is soft, without induration, and not tender. There is no ecchymosis. Passive logroll of the hip does not cause any pain. Passive slight flexion of the hip does cause some pain in the lateral hip where the incision is located. Able to set quad. Strength 5/5 with ankle plantarflexion, dorsiflexion, eversion. Able to wiggle all toes. Neurologic: No sensory deficits in left lower extremity L3-S1 distribution. Results & Data Vital Signs (Past 12 Hours) Vital Signs Temp Pulse Resp BP Pulse Ox O2 Del Method 08/14/24 07:52 98.1 F 88 17 132/84 97 Room Air Laboratory Results 08/14/24 08/14/24 08/13/24 07:46 07:27 23:35 WBC 11.05 H RBC 4.16 L Hgb 12.6 L Hct 37.8 L MCV 90.9 MCH 30.3 MCHC 33.3 RDW Std Deviation 46.4 H RDW Coeff of Akhil 13.8 Plt Count 169 MPV 9.6 Immature Gran % (Auto) 0.3 Neut % (Auto) 79.4 Lymph % (Auto) 8.2 [place] % (Auto) 11.3 Eos % (Auto) 0.4 Baso % (Auto) 0.4 Neut # (Auto) 8.78 H Lymph # (Auto) 0.91 L [place] # (Auto) 1.25 H Eos # (Auto) 0.04 Baso # (Auto) 0.04 Immature Gran # (Auto) 0.03 Sodium 140 Potassium 4.6 Chloride 111 H Carbon Dioxide 28 Anion Gap 1 L BUN 35 H Creatinine 1.60 H Est Cr Clr Drug Dosing 52.4 eGFR 48.72 BUN/Creatinine Ratio 21.9 H Glucose 202 H POC Glucose 151 H 249 H Calcium 8.3 L 08/13/24 08/13/24 21:02 17:43 WBC RBC Hgb Hct MCV MCH MCHC RDW Std Deviation RDW Coeff of Akhil Plt Count MPV Immature Gran % (Auto) Neut % (Auto) Lymph % (Auto) [place] % (Auto) Eos % (Auto) Baso % (Auto) Neut # (Auto) Lymph # (Auto) [place] # (Auto) Eos # (Auto) Baso # (Auto) Immature Gran # (Auto) Sodium Potassium Chloride Carbon Dioxide Anion Gap BUN Creatinine Est Cr Clr Drug Dosing eGFR BUN/Creatinine Ratio Glucose POC Glucose 266 H 261 H Calcium Diagnostic Findings Pelvis X-Ray 08/13/24 09:08 XR pelvis 1-2V routine CLINICAL HISTORY: Post Surgical COMPARISON: 08/03/2024 FINDINGS: Left hip prosthesis shows no hardware complication. There is expected soft tissue gas. IMPRESSION: Unremarkable postoperative exam. ACT 112: Negative or not required by law. Electronically signed by: Terry Marques M.D. 08/13/2024 9:26 AM
[2024-08-14] MEDS: oxyCODONE HCL IR 5 MG TAB (IMMEDIATE RELEASE) PO PRN (11:42)
--- NOTE | 2024-08-14 12:28 | Hospitalist Progress Note ---
Date of Service August 14, 2024 Assessment & Plan (1) S/P total left hip arthroplasty: Plan: -POD#[address] Guerra -Activity and wound care orders as per ortho -Pain control with bowel regimen -PT/OT -Monitor H/H for acute blood loss anemia and transfuse blood products PRN -EBL 100cc -patient medically stable for discharge at this time given patient asymptomatic even with orthostats (2) Orthostatic hypotension: Plan: + orthostatic hypotension post op BP currently stable -give 500 cc bolus of LR before discharge, encourage PO hydration (3) Diabetes mellitus, type 2: Plan: -Hgb A1c 7.10/2024 -Continue home dose Lantus 32u and add Novolog per protocol (4) Hyperlipidemia: Plan I spent a total of 40 minutes in direct patient care, including [id number] time with the patient and/or family, reviewing medical records, ordering and reviewing diagnostic tests, and coordinating care with other healthcare providers. This time includes: history taking, physical examination, medical decision making, counseling, ECG interpretation, imaging interpretation, lab interpretation, orders, and education, excluding time spent in the performance of separately billed services. Admission and Anticipated Discharge Date Admission Date: August 13, 2024 Subjective Patient seen and examined at bedside. Patient feels well today, asymptomatic with orthostats at this time. Feels well and would like to go home. Review of Systems Review of Systems: CONSTITUTIONAL: Patient denies fevers, chills, sweats and weight changes. EYES: Patient denies any visual symptoms. EARS, NOSE, AND THROAT: No difficulties with hearing. No symptoms of rhinitis or sore throat. CARDIOVASCULAR: Patient denies chest pains, palpitations, orthopnea and paroxysmal nocturnal dyspnea. RESPIRATORY: No dyspnea on exertion, no wheezing or cough. GI: No nausea, vomiting, diarrhea, constipation, abdominal pain, hematochezia or melena. : No urinary hesitancy or dribbling. No nocturia or urinary frequency. No abnormal urethral discharge. MUSCULOSKELETAL: No myalgias or arthralgias. NEUROLOGIC: No chronic headaches, no seizures. Patient denies numbness, tingling or weakness. PSYCHIATRIC: Patient denies problems with mood disturbance. No problems with anxiety. ENDOCRINE: No excessive urination or excessive thirst. DERMATOLOGIC: Patient denies any rashes or skin changes. Physical Exam Physical Exam: Gen: A&O 3 NAD HEENT: NCAT, EOMI, not icteric. External ears normal. No rhinorrhea. Moist mucous membranes. Neck: Supple, full range of motion, no observable masses, No meningeal sign. Lungs: No Respiratory distress. CV: RRR, no edema. Abdomen: Soft, nondistended, No rebound tenderness. MSK: No joint swelling, no redness. Post op surgery Skin: No rashes, petechiae, lesions. Normal color per patient. Neuro: Normal Gait, Grossly intact. Psych: Appropriate for situation. Results & Data Results & Data Vital Signs (Past 12 Hours) Vital Signs Temp Pulse Resp BP Pulse Ox O2 Del Method 08/14/24 07:52 36.7 C 88 17 132/84 97 Room Air Laboratory Results -personally reviewed, leukocytosis reactive to procedure, Hgb drop expected post op, creatinine at baseline Medications Administered Acetaminophen (Acetaminophen 500 Mg Tab) 1,000 mg PO Q8 [facility] Stop: 09/12/24 21:59 Last Admin: 08/14/24 05:54 Dose: 1,000 mg Documented By: JUAN C Admin: 08/13/24 21:10 Dose: 1,000 mg Documented By: JUAN C Al Hydrox/Mg Hydrox/Simethicone (Aluminum/Magnesium Susp 30 Ml Udc) 15 ml PO Q4H PRN PRN Reason: Heartburn Stop: 09/12/24 17:45 Last Admin: 08/13/24 21:11 Dose: 15 ml Documented By: JUAN C Aspirin (Aspirin 81 Mg Ectab) 81 mg PO BID [facility] Stop: 09/13/24 08:59 Last Admin: 08/14/24 08:38 Dose: 81 mg Documented By: CHRIS Atorvastatin Calcium (Atorvastatin 40 Mg Tab) 40 mg PO QAM [facility] Stop: 09/13/24 08:59 Last Admin: 08/14/24 08:38 Dose: 40 mg Documented By: CHRIS Docusate Sodium (Docusate Sodium 100 Mg Cap) 100 mg PO BID [facility] Stop: 09/12/24 20:59 Last Admin: 08/14/24 08:37 Dose: 100 mg Documented By: Admin: 08/13/24 21:11 Dose: 100 mg Documented By: JUAN C Gabapentin (Gabapentin 100 Mg Cap) 100 mg PO TID [facility] Stop: 09/12/24 20:59 Last Admin: 08/14/24 08:37 Dose: 100 mg Documented By: Admin: 08/13/24 21:11 Dose: 100 mg Documented By: JUAN C Insulin Aspart (Insulin Aspart Per Unit Charge) 0 units SC ACHS [facility] Stop: 09/12/24 20:59 Last Admin: 08/14/24 08:38 Dose: 7 units Documented By: CHRIS Co-signed By: LUCINA Admin: 08/13/24 21:11 Dose: 6 units Documented By: PNCeasar Co-signed By: ZAHEER Insulin Glargine (Lantus Per Unit Charge) 32 units SQ HS [facility] Stop: 09/12/24 18:49 Last Admin: 08/13/24 19:45 Dose: 32 units Documented By: JUAN C Co-signed By: CADE Metoclopramide HCl (Metoclopramide Hcl Inj 5 Mg/Ml 2 Ml Vial) 10 mg IV Q6H PRN PRN Reason: Nausea And Vomiting Stop: 09/12/24 17:45 Last Admin: 08/13/24 21:10 Dose: 10 mg Documented By: JUAN C Multivitamins (Multivitamin Tab) 1 tab PO QAM [facility] Stop: 09/13/24 08:59 Last Admin: 08/14/24 08:38 Dose: 1 tab Documented By: CHRIS Oxycodone HCl (Oxycodone Hcl Ir 5 Mg Tab (Immediate Release)) 5 - 10 mg PO Q4H PRN PRN Reason: Pain or Pre PT Stop: 08/27/24 17:45 Last Admin: 08/14/24 11:42 Dose: 10 mg Documented By: CHRIS Sennosides (Senna 8.6 Mg Tab) 17.2 mg PO HS [facility] Stop: 09/12/24 20:59 Last Admin: 08/13/24 21:11 Dose: 17.2 mg Documented By: JUAN C
--- NOTE | 2024-08-14 15:01 | Discharge Summary ---
Date of Service August 14, 2024 Admission HPI Per Admitting Provider History of Present Illness (including history relevant to procedure): This 63-year-old male presents to the clinic today for his preoperative history and physical. Patient complains of ongoing hip pain for the past few years. He states over the past several months the pain is increased. He states the pain is worst at night when he is lying on his side. He states that about 2 weeks ago he went to the emergency department due to severe pain and difficulty ambulating and had x-rays performed diagnosing severe arthritis in his hip. Patient states that he was recently started on gabapentin and has been using a Medrol Dosepak that was prescribed by ED staff. He states that these have been taking the edge off his pain. However he states that he is very limited with range of motion and has difficulty putting on socks and shoes. Patient is electing to proceed with surgical intervention at this time. Review Of Systems: A 12 point review of systems formed and is unremarkable except for those that he stated in the HPI and past medical history. Past Medical History: Problems: Diabetes Hypertension Hypercholesterolemia Procedure History Procedure Procedure Date Comments Umbilical hernia repair Allergies and Sensitivities: No Known Medication Allergies Current Home Meds: (Last Updated 08/03 11:52) amLODIPine (amLODIPine 5 mg oral tablet) TAKE 1 TABLET BY MOUTH EVERY DAY IN THE MORNING atorvastatin (atorvastatin 40 mg oral tablet) TAKE 1 TABLET BY MOUTH EVERY DAY IN THE MORNING cephalexin (cephalexin 500 mg oral capsule) 500 mg PO tid post op infection prophylaxis diclofenac (diclofenac sodium 75 mg oral delayed release tablet) 75 mg PO bid PRN: as needed for pain with food empagliflozin (Jardiance 25 mg oral tablet) TAKE 1 TABLET BY MOUTH EVERY DAY IN THE MORNING famotidine (famotidine 10 mg oral tablet) TAKE 1 TABLET BY MOUTH TWICE A DAY NEEDED FOR HEARTBURN insulin aspart (NovoLOG FlexPen 100 units/mL injectable solution) PLEASE SEE ATTACHED FOR DETAILED DIRECTIONS insulin glargine (Lantus Solostar Pen 100 units/mL subcutaneous solution) INJECT 22 UNITS UNDER THE SKIN AT BEDTIME. losartan (losartan 25 mg oral tablet) TAKE 1 TABLET BY MOUTH EVERY DAY IN THE MORNING naproxen (naproxen 500 mg oral tablet) TAKE 1 TABLET TWICE DAILY FOR 10 DAYS NEEDED FOR PAIN, WITH FOOD ondansetron (Zofran 4 mg oral tablet) 4 mg PO q8h PRN: as needed for nausea/vomiting Post op nausea/vomiting oxyCODONE (oxyCODONE 5 mg oral tablet) TAKE 1 TABLET ORALLY FOUR TIMES DAILY NEEDED FOR PAIN oxyCODONE (oxyCODONE 5 mg oral tablet) 5 mg PO q4h PRN: as needed for pain post op pain controlMax 6 / day semaglutide (Ozempic (2 mg dose) 8 mg/3 mL subQ pen) INJECT 2 MG SUBCUTANEOUSLY ONE TIME PER WEEK unlisted medication (DEXCOM G7 SENSOR) USE DIRECTED EVERY 10 DAYS. USE 1 SENSOR EVERY 10 DAYS E11.9 Initial Wt: 08/03 93.9 kg 207 lb Discharge Data Consultations 08/13/24 17:46 Consult Internal Medicine Routine Procedures Performed Operation Date: 08/13/24 07:00 Actual Procedures p Left Total Hip Arthroplasty(Left) - Charles Guerra MD Hospital Course (1) S/P total left hip arthroplasty: Postop day #1 status post left total hip arthroplasty with Dr. Guerra. Patient had been planning same-day surgery/discharge postop day 0 however he had some orthostatic hypotension and ended up being admitted to the hospital overnight. The hospitalist was consulted to manage his diabetes and orthostatic hypotension, appreciate their consult and management. Communicated with Dr. Aviles who is comfortable with the patient being discharged today. Patient seems to be doing much better today. He was able to ambulate with physical therapy did not have any lightheadedness or symptoms consistent with orthostatic hypotension. His vitals are stable today. His outer bulky dressing was removed and the dressing is clean, dry, intact. Postop labs show minimal leukocytosis at 11.05 likely secondary to surgery and steroids. Hemoglobin 12.6 likely secondary to acute blood loss anemia from surgery. Creatinine clearance is stable at 52.4. Minimal hypocalcemia 8.3. Postop x-ray showed stable implant with no concerning findings. Patient feels well enough to be discharged today pending Occupational Therapy evaluation. Since he received 24 hours of Ancef in the hospital, advised him that he does not need to take the Keflex that had previously been prescribed when he was planning to be discharged postop day 0. He will use Tylenol, diclofenac, and oxycodone for pain management. Creatinine clearance stable today at 52.4. Confirmed with Dr. Herickhoff he is comfortable with the patient taking diclofenac outpatient. We discussed wound care. He will leave the silverlon dressing in place, can shower as long as the dressing is intact. Do not submerge wound underwater. Aspirin 81 mg twice daily for DVT prophylaxis for 4 weeks. Weightbearing as tolerated with a walker. He will participate with home health/physical therapy for the first 2 weeks, then has outpatient physical therapy scheduled. We reviewed posterior hip precautions. He has the abduction pillow and was instructed on use. He was instructed to contact our office with any questions or concerns or if he needs a medication refill. All questions were answered. Plan will be to discharge patient pending Occupational Therapy clearance.
== END 2024-08-14 12:39 | disposition home health service (06) | DRG 982 ==
LOC: ASU 05:24 → 3N 17:18